=== PATIENT | male | born 1990 | race Caucasian/White ===

== ENCOUNTER 2018-07-24 09:20 | Emergency (ER) | payer OTHER, SELFPAY ==
[2018-07-24 09:21] VITALS: BP 175/91; PULSE 113; RESP 16; TEMP 36.2; O2SAT 96; BMI 39.1
[2018-07-24] MEDS: Diphth,Pertuss(Acell),Tet Vac 0.5 ML Vial IM (10:09)
[2018-07-24] MEDS: Naproxen 500 MG Tablet PO (10:47)
--- NOTE | 2018-07-24 10:58 | ED.DCSUM_ITS ---
- ER Visit Summary Date of Service: 07/24/18 Chief Complaint: Chin laceration and tongue laceration History of Present Illness: The patient is a 27 M presenting for evaluation secondary to chin and tongue lacerations. 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 Patient states that he had some darkness in his vision but did not completely lose consciousness. Patient denies any visual changes numbness or weakness. He is not on any sort of anticoagulants. Last tetanus is unknown. He suffered a laceration to his chin and his tongue. Physical Examination: Primary survey: Airway is patent, breath sounds equal bilateral, central peripheral pulses 2+ and symmetric, GCS 15 out of 15. Vitals within normal limits. Secondary survey: General: Well-nourished well-developed no acute distress Head: Normocephalic atraumatic Eyes: PERRLA, EOMI ENT: TMs clear no hemotympanum no drainage, tongue shows evidence of a large semicircular laceration measuring approximately 8 cm in total. Chin shows 3 discrete lacerations one being full-thickness and about a centimeter and a half, and 2 more superficial 1 cm lacerations Neck: Nontender full range of motion, no step-offs noted Heart: Regular rate and rhythm no murmurs Lungs: Respirations nondistressed, lung sounds clear to auscultation bilaterally, chest nontender, normal chest excursion bilaterally Abdomen: Soft nontender nondistended normal bowel sounds no palpable abdominal masses Back: Nontender no step-offs noted Extremities: Nontender: Active full range of motion ?4 Skin: Normal color no trauma Neuro: Alert and oriented ?4, GCS 15 out of 15, no lateralizing neurological deficits. Test Results: None indicated Emergency Department Course and Treatment: Patient is negative per the [facility] head CT rules. He has no evidence of trismus, and there is no indication for facial imaging. Patient's tetanus status was updated. Patient's chin laceration was anesthetized with a total of 2 cc of 1% lidocaine. The 1.5 cm laceration was approximated using 2 simple interrupted 4-0 nylon sutures after it was copiously irrigated, and the 2 more superficial 1 cm lacerations were each approximated with a single simple interrupted suture. Patient's tongue laceration was then addressed. A total of 5 cc 1% lidocaine were used in a field block to obtain anesthesia of the tongue. 4-0 chromic gut suture was used, and a total of 4 sutures were placed to tack the tongue back together. There is good hemostasis. Patient tolerated this well. Patient is a type I diabetic, will be placed on prophylactic penicillin. He was instructed to be on a soft diet and do saline rinses after each time he eats or drinks. He will follow-up with [facility] for wound check and for suture removal of his chin sutures. Disposition: Discharge Impression: 1. 8 cm tongue laceration 2. 3 discrete chin lacerations 1.5, 1, and 1 cm 3. Complex laceration repair This note was generated with [employer] dictation software. It may contain incorrect words, spelling, and punctuation that were not noted in review of the chart prior to signing ED Disposition - Plan for ED Patient: Disposition: Home or Assisted Living Chief Complaint: Other, Pain/Inj Diagnosis: Tongue laceration, Chin laceration Instructions: ED Laceration Mouth Prescriptions: Hydrocodone Bitart/Apap 5-325 [[place] 5MG-325MG] 1 tab PO Q6H PRN PRN 3 Days #12 tab PRN Reason: Pain Penicillin V Potassium 500 mg PO 4X/DAY #40 tab [facility]errals: [facility]YSIC[facility]] - 3-5 Days suture removal
[2018-07-24 11:30] VITALS: RESP 18
== END 2018-07-24 11:31 | disposition home or self-care (01) ==
PROVIDERS: Emergency Provider Emergency Medicine
DX: S01.512A Laceration without foreign body of oral cavity, initial encounter (principal); S01.81XA Laceration without foreign body of other part of head, initial encounter; W22.8XXA Striking against or struck by other objects, initial encounter; Y93.89 Activity, other specified; Y92.63 Factory as the place of occurrence of the external cause; Y99.0 Civilian activity done for income or pay; E10.9 Type 1 diabetes mellitus without complications
CPT/HCPCS: 12013; 41252; 90715; 99285

== ENCOUNTER 2020-05-02 21:07 | Emergency (ER) | payer MEDICAID, SELFPAY ==
[2020-05-02 21:08] VITALS: BP 183/105; PULSE 132; RESP 18; TEMP 36.6; O2SAT 100; BMI 33.4
[2020-05-02] MEDS: HYDROmorphone 1 MG/ML Syringe IM (21:46)
[2020-05-02] MEDS: Ondansetron ODT 4 MG Tablet PO (21:47)
[2020-05-02] MEDS: Amox/Clavulanate 875 MG Tablet PO (21:47)
[2020-05-02] MEDS: Diphth,Pertuss(Acell),Tet Vac 0.5 ML Vial IM (21:58)
--- NOTE | 2020-05-02 22:07 | RAD_ITS ---
STUDY: X-RAY - LEFT RADIUS AND ULNA REASON FOR EXAM: Male, 29 years old. BITE IN LEFT FOREARM FROM LARGE DOGE TODAY. TECHNIQUE: 2 view(s) of the forearm. COMPARISON: None. FINDINGS: Laceration seen in the distal one third dorsal soft tissues of the forearm with small amount of subcutaneous gas and swelling. Normal visualized radius. Normal visualized ulna. There is no demonstrated acute fracture. RAD/Forearm 2 Views IMPRESSION: Laceration seen in the distal one third dorsal soft tissues of the forearm with small amount of subcutaneous gas and swelling. Electronically Signed: Tesfaye Linares MD at 22:30 EDT , Service support ,
--- NOTE | 2020-05-02 22:46 | ED.DCSUM_ITS ---
- ER Visit Summary Date of Service: 05/02/20 Chief Complaint: Dog bite History of Present Illness: The patient is a 29 M with no primary care physician. He reports that just prior to coming the emergency department was trying to break up a fight between a friend's dog and an unknown dog and was bitten multiple times by the unknown dog. Complains of a sharp pain that is 10 of 10 in severity to his left forearm. Is worsened by movement relieved by rest. He denies any paresthesias distally. Patient reports that he has pain to his lateral right leg that is 7 on 10 severity and pain to his right thigh that is 9 out of 10 in severity. His tetanus shot is up-to-date. Physical Examination: Vitals: Stable. Afebrile. General: Well-nourished and well-developed. Head: Normocephalic atraumatic. Neck: Supple, no lymphadenopathy. No JVD. Nontender. Cardiovascular: Regular rate and rhythm. No murmurs. Respiratory: No respiratory distress. Clear to auscultation bilaterally. Abdominal: Soft, nontender, nondistended, normal bowel sounds. No guarding, rebound, or peritoneal signs. Back: Nontender. Extremities: Anterior surface of the left forearm has a 3.5 cm laceration over the proximal third and 2.5 cm laceration just distal and medial to this. He is neurovascular intact distal to this. Medial right leg has multiple puncture wounds with no bleeding. Lateral right thigh has a hematoma with a contusion and/abrasion/puncture wounds. He is neurovascular intact distal to these as well. Skin: Normal color, no rash. Neurologic: Alert and oriented ?3. Cranial nerves II through XII are intact. Normal strength and sensation. Psych: Normal affect. Test Results: Clinical Impression(s) from Imaging Studies Forearm X-Ray 05/02/20 22:07 IMPRESSION: Laceration seen in the distal one third dorsal soft tissues of the forearm with small amount of subcutaneous gas and swelling. Electronically Signed: Tesfaye Linares MD at 22:30 EDT , Service support , Emergency Department Course and Treatment: Patient has a history of insulin- dependent diabetes mellitus. Had a prolonged discussion with him about the risk of infection if we repaired the is bite to his left forearm. He has opted to let this heal by secondary intention and I think that that is the best plan. He had the wound cleansed and a dressing was placed. Prior to this patient was given a dose of Dilaudid IM. He had his tetanus updated. He was given Augmentin and Zofran p.o. Treatment Plan: Patient will be discharged with Augmentin, Percocet, and Zofran. Instructed to follow-up Dr. Jose Teran in 3 to 5 days for a wound check. Return to the emergency department for any worsening symptoms. Disposition: To home in improved and stable condition. Impression: 1. Dog bite left forearm. 2. Puncture wounds right thigh/leg. 3. Insulin-dependent diabetes mellitus. This note was generated with [employer] dictation software. It may contain incorrect words, spelling, and punctuation that were not noted in review of the chart prior to signing ED Disposition - Plan for ED Patient: Instructions: ED BITE Dog Prescriptions: Amox/Clavulanate Tablet [Augmentin Tablet] 875 mg PO Q12H #20 tablet Oxycodone HCl/Acetaminophen [Percocet 5/325] 1 tablet PO Q6H PRN PRN 3 Days #12 tablet PRN Reason: Pain Referrals: Jose Teran MD [STAFF PHYSICIAN] - 3-5 Days
[2020-05-02 23:58] VITALS: BP 140/92; PULSE 96; RESP 18; O2SAT 97
== END 2020-05-02 23:59 | disposition home or self-care (01) ==
LOC: ED 21:42
PROVIDERS: Emergency Provider Emergency Medicine
DX: S50.871A Other superficial bite of right forearm, initial encounter (principal); S71.131A Puncture wound without foreign body, right thigh, initial encounter; S81.831A Puncture wound without foreign body, right lower leg, initial encounter; W54.0XXA Bitten by dog, initial encounter; Y93.89 Activity, other specified; Y92.9 Unspecified place or not applicable; I10 Essential (primary) hypertension; E10.9 Type 1 diabetes mellitus without complications; Z79.4 Long term (current) use of insulin; Z72.0 Tobacco use
CPT/HCPCS: 73090; 90471; 90715; 96372; 99283

== ENCOUNTER 2020-09-22 06:46 | Inpatient (IN) | payer MEDICAID, SELFPAY ==
[2020-09-22] VITALS (11 sets, daily range): BP systolic 140–206; BP diastolic 63–180; PULSE 121–139; RESP 22–36; TEMP 35.4–36.6; O2SAT 99–100; BMI 29.3; BMI 29.4
--- NOTE | 2020-09-22 06:51 | EKG12_ITS ---
Test Reason : Blood Pressure : / mmHG Vent. Rate : 127 BPM Atrial Rate : 127 BPM P-R Int : 148 ms QRS Dur : 106 ms QT Int : 328 ms P-R-T Axes : 078 074 065 degrees QTc Int : 476 ms Sinus tachycardia Otherwise normal ECG Confirmed by LEANA DAVIS, NARINDER ([id number]), content editor SHERICE SMYTH ([id number]) on 09/24/2020 7:51:16 AM Referred By: SEAN Confirmed By:NARINDER DUEÑAS MD
--- NOTE | 2020-09-22 06:52 | ED.VIS.GEN ---
History of Present Illness Informant: Patient Onset: Yesterday Context: Gradual Onset Timing: Continuous Current Severity: Moderate Maximum Severity: Severe Narrative: The patient is a 30-year-old male with history of insulin-dependent diabetes that presents to the emergency department concerned he is in DKA. The patient does have an insulin pump. He states he thinks it started to malfunction yesterday. Today, he became acutely nauseated and having diffuse myalgias. He states he has had multiple episodes of vomiting. He states he feels like he has been in DKA before. He denies fevers. He does admit to chills and sweats. He states up until the past 24 hours, is felt like his been in his normal state of health. Prior similar symptoms: Yes Recent Illness/Hospitalization: No <Pedro Pablo Lara - Last Filed: 09/22/20 07:08> <Pedro Pablo Loja - Last Filed: 09/22/20 10:00> Chief Complaint: Nausea/Vomiting Past Medical History Prior records reviewed: Yes Past Medical History: - - Insulin-dependent diabetes Surgical History: noncontributory Smoking Status: Light Smoker (<10/day) <Pedro Pablo Lara - Last Filed: 09/22/20 07:08> <Pedro Pablo Loja - Last Filed: 09/22/20 10:00> - Allergies and Home Meds Allergies/Adverse Reactions: Allergies Penicillins [PCN] Adverse Reaction (Verified 09/22/20 06:55) Rash Review of Systems General: Denies: Chills, Fever, Sweats Eyes: Denies: Visual changes - bilaterally, Diplopia ENT: Denies: Rhinorrhea, Sore throat Cardiovascular: Denies: Chest pain, Palpitations Respiratory: Denies: Dyspnea, Cough, Dyspnea on exertion Gastrointestinal: Reports: Nausea, Vomiting. Denies: Abdominal pain, Diarrhea, Melena, Hematochezia Genitourinary: Denies: Dysuria, Hematuria, Frequency Musculoskeletal: Reports: Myalgias, Arthralgias. Denies: Back pain, Extremity Pain Skin: Denies: Rash, Wounds Neurological: Denies: Headache, Weakness, Numbness <Pedro Pablo Lara - Last Filed: 09/22/20 07:08> Physical Exam Vital Signs/Narrative: Vital Signs Temp Pulse Resp BP Pulse Ox 09/22/20 06:47 95.8 F L 123 H 36 H 206/180 H 100 Inital Vital Signs reviewed: Yes General: Well nourished, Well developed, No Acute Distress Head: Normocephalic, Atraumatic Eyes: Perrl, EOMI ENT: Moist mucous membranes, No rhinorrhea Neck: Supple, Nontender Cardiovascular: Regular rate, No murmurs, Tachycardia Respiratory: No distress, CTA bilaterally, Chest nontender Abdomen: Soft, Nontender, Nondistended, Normal bowel sounds Back: Nontender, Normal Inspection Extremities: Nontender, No edema Skin: Normal color, No rash Neurological: Alert, Oriented x3, Cranial nerves II-XII grossly intact, Normal Strength, Normal Sensation Psychological: Normal affect, Normal Mood <Pedro Pablo Lara - Last Filed: 09/22/20 07:08> Vital Signs/Narrative: Vital Signs Temp Pulse Resp BP Pulse Ox 09/22/20 09:50 129 H 30 H 159/132 H 100 09/22/20 08:09 121 H 30 H 177/66 H 99 09/22/20 06:47 95.8 F L 123 H 36 H 206/180 H 100 <Pedro Pablo Loja - Last Filed: 09/22/20 10:00> Diagnostic/Tx/Re-eval - Medical Decision Making Patient presents tachycardic, hypertensive, and tachypneic. His mucous membranes are dry. Clinically, there is obviously concern for DKA. Patient is going to undergo broad metabolic work-up. The patient's last admission for DKA was 2018 at [facility]. He is also on lisinopril for his hypertension. He will be followed up by the oncoming physician. <Pedro Pablo Lara - Last Filed: 09/22/20 07:08> Chest X-Ray - ED: 1 View, Read by ED Physician, No Acute Disease Clinical Impression(s) from Imaging Studies Chest X-Ray 09/22/20 08:35 IMPRESSION: The tip of the right central catheter is at the junction of the superior vena cava and right atrium. The lungs are clear. Electronically Signed: Derek Tobin MD at 8:53 EST , Service support , Abdomen/Pelvis CT 09/22/20 08:36 IMPRESSION: Fluid distention of the stomach. Questionable gastroparesis. Distended urinary bladder. Electronically Signed: Derek Tobin MD at 9:18 EST , Service support , Laboratory Data 09/22/20 09/22/20 09/22/20 07:01 07:15 07:15 WBC 41.2 H* RBC 5.66 Hgb 18.4 H* Hct 56.0 H MCV 98.9 H MCH 32.5 H MCHC 32.9 RDW Std Deviation 45.2 H RDW Coeff of Yaritza 12.3 Plt Count 504 H MPV 10.2 Immature Gran % (Auto) 4.200 H Neut % (Auto) 82.1 H Lymph % (Auto) 6.0 L [place] % (Auto) 6.7 Eos % (Auto) 0.1 Baso % (Auto) 0.9 Absolute Neuts (auto) 33.8 H Absolute Lymphs (auto) 2.48 Nucleated RBC % 0 Differential Comment COMMENT Diff Path Review May foll Specimen Type VBG pH VBG pO2 VBG Total CO2 VBG O2 Sat (Calc) VBG Base Excess POC Mix VBG pCO2 Pt Tmp Sodium 126 L Potassium 6.5 H* Chloride 89 L Carbon Dioxide 6.0 L* Anion Gap 31 H BUN 31 H Creatinine 2.17 H Estim Creat Clear Calc 46.96 Est GFR (MDRD) Af Amer 47 L Est GFR (MDRD) Non-Af 38 L BUN/Creatinine Ratio 14.3 Glucose 622 H* Lactic Acid Calcium 9.4 Total Bilirubin 0.70 AST 29 ALT 32 Alkaline Phosphatase 183 H Total Protein 8.7 H Albumin 4.2 Globulin 4.5 H Albumin/Globulin Ratio 0.9 Lipase 46 L Acetone Level POC Glucose > 500 H* 09/22/20 09/22/20 09/22/20 07:15 07:15 07:48 WBC RBC Hgb Hct MCV MCH MCHC RDW Std Deviation RDW Coeff of Yaritza Plt Count MPV Immature Gran % (Auto) Neut % (Auto) Lymph % (Auto) [place] % (Auto) Eos % (Auto) Baso % (Auto) Absolute Neuts (auto) Absolute Lymphs (auto) Nucleated RBC % Differential Comment Diff Path Review Specimen Type HARRIS VBG pH 6.91 L* VBG pO2 72 H VBG Total CO2 < 5 L VBG O2 Sat (Calc) 81 H VBG Base Excess -28 L POC Mix VBG pCO2 Pt Tmp 21.0 L Sodium Potassium Chloride Carbon Dioxide Anion Gap BUN Creatinine Estim Creat Clear Calc Est GFR (MDRD) Af Amer Est GFR (MDRD) Non-Af BUN/Creatinine Ratio Glucose Lactic Acid 7.8 H* Calcium Total Bilirubin AST ALT Alkaline Phosphatase Total Protein Albumin Globulin Albumin/Globulin Ratio Lipase Acetone Level LARGE H POC Glucose 09/22/20 09:19 WBC RBC Hgb Hct MCV MCH MCHC RDW Std Deviation RDW Coeff of Yaritza Plt Count MPV Immature Gran % (Auto) Neut % (Auto) Lymph % (Auto) [place] % (Auto) Eos % (Auto) Baso % (Auto) Absolute Neuts (auto) Absolute Lymphs (auto) Nucleated RBC % Differential Comment Diff Path Review Specimen Type VBG pH VBG pO2 VBG Total CO2 VBG O2 Sat (Calc) VBG Base Excess POC Mix VBG pCO2 Pt Tmp Sodium Potassium Chloride Carbon Dioxide Anion Gap BUN Creatinine Estim Creat Clear Calc Est GFR (MDRD) Af Amer Est GFR (MDRD) Non-Af BUN/Creatinine Ratio Glucose Lactic Acid Calcium Total Bilirubin AST ALT Alkaline Phosphatase Total Protein Albumin Globulin Albumin/Globulin Ratio Lipase Acetone Level POC Glucose > 500 H* - EKG Initial EKG Interpretation: - - Sinus tachycardia rate of [address] segments. No evidence of acute ischemic changes. - Medical Decision Making Patient was endorsed to me by the outgoing physician. I assumed care of the patient, he was complaining of a significant amount of back pain and required multiple doses of fentanyl as well as morphine. EKG obtained on the patient showed sinus tachycardia with peaked T waves. I was concerned for the beginnings of symptomatic hyperkalemia, patient was given calcium for cardiac stabilization. Patient's blood gas showed him to be in significant DKA with a pH of 6.9. Patient was started on an insulin drip as well as a bicarbonate drip with his concomitant fluid resuscitation. Patient's initial access was a small peripheral IV in the hand. He was consented for a right internal jugular central venous catheter. This was placed as noted in the procedure note. Confirmatory chest x-ray by my personal review shows good placement of the catheter with no evidence of pneumothorax no evidence of cardiopulmonary disease. Patient was found to have continued low back pain with the skin mottling, I was concerned for the possibility of intra-abdominal pathology, CT abdomen and pelvis showed only signs of gastroparesis no other evidence of acute pathology. Multiple repeat evaluations showed the patient to have some improvement in his clinical status, but he is still rather critical and requires intensive care management. Patient will be admitted to the ICU under the hospitalist. I did consider the possibility given the patient's back pain and skin mottling of spine disease, epidural abscess, or discitis I communicated this to the hospitalist but I feel that the patient requires further stabilization prior to having this addressed. Blood cultures were sent the patient was empirically given vancomycin and aztreonam. - Critical Care Time Critical care time (excluding procedures): 30-74 minutes <Pedro Pablo Loja - Last Filed: 09/22/20 10:00> Procedures Procedure(s): Patient was given written consent for a right internal jugular central venous access under ultrasound guidance. Timeout was performed. Right internal jugular vein was identified under ultrasound. Patient was cleansed with chlorhexidine x2. He was draped in a sterile fashion with a head to toe drape. Direct ultrasound guidance was utilized, and venous access was obtained. There was dark red nonpulsatile blood. Modified Seldinger technique was utilized, and triple-lumen catheter was placed and sutured in place with good flush and return in all 3 ports. Dressing was placed by nursing staff. Patient tolerated this well. <Pedro Pablo Loja - Last Filed: 09/22/20 10:00> ED Disposition <Pedro Pablo Lara - Last Filed: 09/22/20 07:08> <Pedro Pablo Loja - Last Filed: 09/22/20 10:00> - Plan for ED Patient: Disposition: Acute Care [facility] Diagnosis: DKA (diabetic ketoacidoses), Hyperkalemia, NICK (acute kidney injury), Dehydration
[2020-09-22] MEDS: Ondansetron 4 MG/2 ML Vial IV ×2 (07:15→08:03)
[2020-09-22] MEDS: 0.9% Normal Saline 1,000 ML 1000 ML IV ×2 (07:15→09:15)
[2020-09-22 07:26] LABS: Bedside Glucose > 500 mg/dL (70-110)
[2020-09-22] MEDS: fentaNYL 100 MCG/2 ML Ampul 25 MCG IV (07:28)
[2020-09-22 07:31] LABS: Absolute Lymphocyte Count 2.48 X10^3/uL (0.83-4.51); Absolute Neutrophil Count 33.8 X10^3/uL (2.0-7.7); Basophil# 0.39 X10^3/uL; Basophil% 0.9 % (0-1); Eosinophil# 0.04 X10^3/uL; Eosinophils% 0.1 % (0-5); Lymphocyte # 2.48 X10^3/ul (4.0); Mean Corp Hgb Conc 32.9 g/dL (32-36); Mean Corpuscular Hgb 32.5 pg (27.0-32.0); Mean Corpuscular Volume 98.9 fL (80-94); Mean Platelet Vol. 10.2 fl (6.2-12.0); Monocyte# 2.75 X10^3/uL; Monocyte% 6.7 % (0-10); NRBC Flagged by Analyzer 0 % (0-5); Neutrophil # 33.82 X10^3/uL (2.7-7.7); Neutrophil % 82.1 % (47-70); POSITIVE COUNT YES; POSITIVE DIFFERENTIAL YES; Platelet Count 504 K/mm3 (150-450); RBC Distribution Width CV 12.3 % (11.6-14.6); RBC Distribution Width SD 45.2 fl (35.1-43.9); Red Blood Count 5.66 M/mm3 (4.6-6.2)
[2020-09-22 07:34] LABS: Differential Indicated SCAN CRITERIA MET; Hemoglobin 18.4 g/dL (13.0-16.5); White Blood Count 41.2 K/mm3 (4.4-11.0)
[2020-09-22 07:51] LABS: ALB/GLOB Ratio 0.9 RATIO (0.9-2.4); AST(SGOT) 29 U/L (15-37); Alanine Aminotransfer ALT/SGPT 32 U/L (16-61); Albumin, Serum 4.2 g/dL (3.2-5.0); Alkaline Phosphatase 183 U/L (45-117); Anion Gap 31 (5-15); BUN 31 mg/dL (7-18); BUN/Creat Ratio 14.3 RATIO (10-20); Calcium,Total 9.4 mg/dL (8.5-10.1); Chloride 89 mmol/L (98-107); Creatinine, Serum 2.17 mg/dL (0.70-1.30); EST Glomerular Filtration Rate 38 mL/min (>60); Est Glom Filt Rate - Afr Amer 47 mL/min (>60); Estimated Creatinine Clearance 46.96 ml/min; Globulin 4.5 g/dL (2.2-4.2); Glucose 622 mg/dL (74-106); Lipase 46 U/L (73-393); Potassium 6.5 mmol/L (3.5-5.1); Protein, Total 8.7 g/dL (6.4-8.2); Sodium Level 126 mmol/L (136-145)
[2020-09-22 07:52] LABS: Lactic Acid 7.8 mmol/L (0.4-1.9)
[2020-09-22] MEDS: Morphine 4 MG/ML Syringe IV ×2 (08:03→08:49)
[2020-09-22 08:06] LABS: Blood Gas Specimen Type VEN; VBG BASE EXCESS -28 mmol/L (-1.0-3.5); VBG PO2 72 mmHg (25-40); VBG SO2 81 % (50-70); VBG TCO2 < 5 mmol/L (23-33); VBG pH 6.91 (7.32-7.42)
--- NOTE | 2020-09-22 08:35 | RAD_ITS ---
STUDY: X-RAY CHEST REASON FOR EXAM: Male, 30 years old. 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 LAST BGT @ 2300 WAS 330. TECHNIQUE: Single AP portable view of the chest. COMPARISON: None. FINDINGS: A right-sided central venous catheter has been placed with the tip at the junction of superior vena cava and right atrium. EKG electrodes are seen. The lungs are clear and expanded. There is no demonstrated pleural abnormality. Normal size heart. Normal mediastinum and kamla. Normal visualized pulmonary arteries. Normal visualized aortic arch and descending thoracic aorta. Normal visualized thoracic spine. The patient is status post ORIF of a left midclavicular fracture. There is no demonstrated abnormality of the visualized soft tissue structures of the upper abdomen. RAD/Chest 1 View (Portable) IMPRESSION: The tip of the right central catheter is at the junction of the superior vena cava and right atrium. The lungs are clear. Electronically Signed: Derek Tobin MD at 8:53 EST , Service support ,
--- NOTE | 2020-09-22 08:36 | CT_ITS ---
STUDY: CT ABDOMEN AND PELVIS WITHOUT CONTRAST REASON FOR EXAM: Male, 30 years old. N/V,BACK PAIN,MOTTLING, DKA, DB-INSULIN PUMP RADIATION DOSAGE (If Supplied By Facility): CTDIvol = ( 8.14 ) mGy, DLP = ( 833.99 ) mGycm TECHNIQUE: Transaxial images were obtained from the dome of the diaphragm to the symphysis pubis without oral contrast, and without intravenous contrast. Sagittal and coronal images were reconstructed. Individualized dose optimization techniques were used for this CT. COMPARISON: None. FINDINGS: There is a 2.9 cm x 2.3 cm soft tissue density in the retroareolar region of the right breast. Clinical correlation is recommended. The visualized lung bases are unremarkable. The visualized portions of the heart are within normal limits. Normal liver. Normal gallbladder and extrahepatic biliary system. Normal spleen. Normal pancreas. Normal bilateral adrenal glands. Normal right kidney. Normal left kidney. The stomach is distended with fluid. Normal small intestine. Normal colon. The appendix is visualized and appears normal. Normal abdominal aorta. Normal inferior vena cava. There is borderline retroperitoneal lymphadenopathy with enlarged nodes no greater than 10mm in the short axis diameter. Distended urinary bladder. Normal abdominal wall. Normal osseous structures. CT/Abdomen/Pelvis without Cont IMPRESSION: Fluid distention of the stomach. Questionable gastroparesis. Distended urinary bladder. Electronically Signed: Derek Tobin MD at 9:18 EST , Service support ,
[2020-09-22 09:26] LABS: Bedside Glucose > 500 mg/dL (70-110)
--- NOTE | 2020-09-22 09:47 | NURSING ---
DR MADRIGAL FOR DR ESTRADA
[2020-09-22 10:02] LABS: Anion Gap 29 (5-15); BUN 35 mg/dL (7-18); BUN/Creat Ratio 17.1 RATIO (10-20); Calcium,Total 9.1 mg/dL (8.5-10.1); Chloride 93 mmol/L (98-107); Creatinine, Serum 2.05 mg/dL (0.70-1.30); EST Glomerular Filtration Rate 41 mL/min (>60); Est Glom Filt Rate - Afr Amer 50 mL/min (>60); Estimated Creatinine Clearance 49.71 ml/min; Glucose 732 mg/dL (74-106); Potassium 6.7 mmol/L (3.5-5.1); Sodium Level 128 mmol/L (136-145)
--- NOTE | 2020-09-22 10:09 | NURSING ---
[id number] ROHAN JAVIERA
--- NOTE | 2020-09-22 10:15 | NURSING ---
Report called to Juan Diego in ICU
[2020-09-22] MEDS: 0.9% Normal Saline 1,000 ML 500 ML IV (11:04)
[2020-09-22 11:11] LABS: Magnesium 2.3 mg/dL (1.6-2.6)
[2020-09-22 11:15] LABS: Anion Gap 25 (5-15); BUN 36 mg/dL (7-18); BUN/Creat Ratio 19.7 RATIO (10-20); Chloride 99 mmol/L (98-107); Creatinine, Serum 1.83 mg/dL (0.70-1.30); EST Glomerular Filtration Rate 47 mL/min (>60); Est Glom Filt Rate - Afr Amer 57 mL/min (>60); Estimated Creatinine Clearance 55.69 ml/min; Glucose 567 mg/dL (74-106); Potassium 5.3 mmol/L (3.5-5.1); Sodium Level 131 mmol/L (136-145)
[2020-09-22 11:20] LABS: Hemoglobin A1c 10.1 % (3.8-5.6)
[2020-09-22 11:22] LABS: Reflex Lactate? Y
--- NOTE | 2020-09-22 12:03 | CPS ---
Critical ABG value verified times two. Reported results to . Verified by readback.
[2020-09-22 12:18] LABS: Bacteria 0 SEEN /hpf (None Seen); Mucous, Urine 0 SEEN /hpf (<or=2+); Red Blood Cells-Urine 0 SEEN /hpf (0-5); Squamous Epithelial Cells - UA 0 SEEN /hpf (0-5); White Blood Cells 0 SEEN /hpf (0-5)
[2020-09-22 12:21] LABS: Color, Urine Yellow (Yellow); Glucose, Dipstick 1000 mg/dl (Normal); Leukocyte Esterase-Dipstick Negative /ul (Negative); Nitrite-Dipstick Negative (Negative); Occult Blood-Urine 25 /ul (Negative); Protein-Dipstick 30 mg/dl (Negative); Urine Bilirubin Dipstick Negative (Negative); Urine Clarity Sl. Cloudy (Clear); Urine Urobilinogen Normal (Normal)
[2020-09-22 12:31] LABS: Ketone-Dipstick 150 mg/dl (Negative)
[2020-09-22 12:41] LABS: Bedside Glucose > 500 mg/dL (70-110)
[2020-09-22 12:41] LABS: Bedside Glucose 454 mg/dL (70-110)
[2020-09-22] MEDS: Heparin Injection (Vial) 5,000 UNIT/ML VIAL 5000 UNIT SC ×2 (12:55→22:13)
[2020-09-22 13:10] LABS: Bedside Glucose 447 mg/dL (70-110)
[2020-09-22 13:32] LABS: Pathologist Review Reviewed
[2020-09-22 13:51] LABS: Bedside Glucose 360 mg/dL (70-110)
[2020-09-22] MEDS: 0.9% Normal Saline 1,000 ML 250 ML IV (14:14)
[2020-09-22 15:20] LABS: Bedside Glucose 335 mg/dL (70-110)
[2020-09-22 16:16] LABS: Bedside Glucose 315 mg/dL (70-110)
[2020-09-22 16:26] LABS: Anion Gap 12 (5-15); BUN 29 mg/dL (7-18); BUN/Creat Ratio 20.1 RATIO (10-20); Chloride 107 mmol/L (98-107); Creatinine, Serum 1.44 mg/dL (0.70-1.30); EST Glomerular Filtration Rate 62 mL/min (>60); Est Glom Filt Rate - Afr Amer 75 mL/min (>60); Estimated Creatinine Clearance 70.77 ml/min; Glucose 298 mg/dL (74-106); Potassium 4.8 mmol/L (3.5-5.1); Sodium Level 135 mmol/L (136-145)
[2020-09-22 17:16] LABS: Bedside Glucose 267 mg/dL (70-110)
--- NOTE | 2020-09-22 18:11 | HP.PCM_ITS ---
History of Present Illness Date of Admission: 09/22/20 Chief Complaint: Nauseated and myalgias The patient is a 30 year old M H as below who presents to the hospital in DKA. He states that symptoms started yesterday and he thinks that at that time his insulin pump had stopped working. He checks his blood sugar twice a day and noticed that it was getting higher yesterday but did not really think anything of it until he had significant worsening nausea and vomiting today. In the ER he was found to have a pH on a VBG of 6.91 with a bicarb of six and a potassium of 6.5. His blood sugar was 622 and in his urine he had 150 ketones and he also had a large acetone level. He was given IV fluids as well as started on insulin. He also was having a significant leukocytosis to 41 as well as polycythemia secondary to dehydration and hemoconcentration. Past Medical History Allergies Penicillins [PCN] Adverse Reaction (Verified 09/22/20 06:55) Rash Home Medications: Ambulatory Orders Medication Instructions Recorded Insulin Lispro [Humalog] 100 unit SQ CONT 05/02/20 Surgical History: - - Ankle surgery and collarbone repair Smoking Status: Current every day smoker Tobacco Use: Cigarettes Alcohol: None Drugs: None - *Family History Maternal History Items: Heart Disease, Hypertension Paternal History Items: Heart Disease, Hypertension Review of Systems Constitutional: Reports: Malaise, Weakness. Denies: Chills, Fever, Weight Change HEENT: Denies: Head Aches, Sinus Congestion, Sinus Drainage Cardiovascular: Denies: Chest Pain, Palpitations Respiratory: Denies: Cough, Shortness of breath at rest, Sputum production Gastrointestinal: Reports: Nausea, Vomiting. Denies: Abdominal Pain, Diarrhea Genitourinary: Denies: Dysuria Musculoskeletal: Reports: Muscle pain. Denies: Joint Pain, Joint Tenderness Skin: Denies: Rash, Wounds Neurological: Denies: Numbness, Tingling, Focal weakness Psychiatric: Denies: Anxiety, Depression Hematologic/ Lymphatic: Denies: Easy Bruising, Easy Bleeding VTE Information - Inpt Only VTE Present on Admission: No Patient Problems: Active and Suspected Problems DKA (diabetic ketoacidoses) (Acute) Hyperkalemia (Acute) NICK (acute kidney injury) (Acute) Dehydration (Acute) - Physical Exam Vitals/I&O's: Vital Signs Temp Pulse Resp BP Pulse Ox 97.9 F 128 H 23 H 160/104 H 100 09/22/20 10:08 09/22/20 13:37 09/22/20 11:29 09/22/20 11:29 09/22/20 11:29 Oxygen Flow Rate (L/min) 2 Oxygen Delivery Method Room Air Weight: 187 lb 6.287 oz Body Mass Index (BMI) 29.4 Finger Stick Blood Glucose 267 Intake and Output for Last 24 Hours 09/20/20 09/21/20 09/22/20 23:59 23:59 23:59 Intake Total 3852.23 / 3852.23 Output Total 1300 / 1300 Balance 2552.23 / 2552.23 General: Oriented x3, Cooperative, No apparent distress, Lethargic HEENT: Atraumatic, PERRLA, EOMI, Normocephalic Oral: Dry Mucosa Neck: Supple, No JVD Lungs: Clear to auscultation, Normal air movement, No rhonchi, No wheeze, No rales Cardiovascular: Regular rate, Regular Rhythm, Normal S1, Normal S2, No murmurs Abdomen: Soft, Non Tender, Non-Distended, No Hepato-splenomegaly Extremities: No edema, Capillary Refill Less than 3 Seconds Skin: No rashes, No breakdown Neurological: Neuro grossly intact, Sensory exam intact to light touch and pain Psych/Mental Status: Normal Affect, Appropriate Laboratory Results 09/22/20 07:01: POC Glucose > 500 H* 09/22/20 07:15: WBC 41.2 H*, RBC 5.66, Hgb 18.4 H*, Hct 56.0 H, MCV 98.9 H, MCH 32.5 H, MCHC 32.9, RDW Std Deviation 45.2 H, RDW Coeff of Yaritza 12.3, Plt Count 504 H, MPV 10.2, Immature Gran % (Auto) 4.200 H, Neut % (Auto) 82.1 H, Lymph % ( Auto) 6.0 L, Elmore % (Auto) 6.7, Eos % (Auto) 0.1, Baso % (Auto) 0.9, Absolute Neuts (auto) 33.8 H, Absolute Lymphs (auto) 2.48, Nucleated RBC % 0, Differential Comment COMMENT, Diff Path Review Reviewed 09/22/20 07:15: Sodium 126 L, Potassium 6.5 H*, Chloride 89 L, Carbon Dioxide 6.0 L*, Anion Gap 31 H, BUN 31 H, Creatinine 2.17 H, Estim Creat Clear Calc 46.96, Est GFR (MDRD) Af Amer 47 L, Est GFR (MDRD) Non-Af 38 L, BUN/Creatinine Ratio 14.3, Glucose 622 H*, Calcium 9.4, Total Bilirubin 0.70, AST 29, ALT 32, Alkaline Phosphatase 183 H, Total Protein 8.7 H, Albumin 4.2, Globulin 4.5 H, Albumin/Globulin Ratio 0.9, Lipase 46 L 09/22/20 07:15: Lactic Acid 7.8 H* 09/22/20 07:15: Acetone Level LARGE H 09/22/20 07:15: Hemoglobin A1c 10.1 H 09/22/20 07:48: Specimen Type HARRIS, VBG pH 6.91 L*, VBG pO2 72 H, VBG HCO3 Pending, VBG Total CO2 < 5 L, VBG O2 Sat (Calc) 81 H, VBG Base Excess -28 L, POC Mix VBG pCO2 Pt Tmp 21.0 L 09/22/20 09:19: POC Glucose > 500 H* 09/22/20 09:20: Sodium 128 L, Potassium 6.7 H*, Chloride 93 L, Carbon Dioxide 6.0 L*, Anion Gap 29 H, BUN 35 H, Creatinine 2.05 H, Estim Creat Clear Calc 49.71, Est GFR (MDRD) Af Amer 50 L, Est GFR (MDRD) Non-Af 41 L, BUN/Creatinine Ratio 17.1, Glucose 732 H*, Calcium 9.1 09/22/20 10:37: POC Glucose > 500 H* 09/22/20 10:45: Magnesium 2.3 09/22/20 10:45: Sodium 131 L, Potassium 5.3 H, Chloride 99, Carbon Dioxide 7.0 L*, Anion Gap 25 H, BUN 36 H, Creatinine 1.83 H, Estim Creat Clear Calc 55.69, Est GFR (MDRD) Af Amer 57 L, Est GFR (MDRD) Non-Af 47 L, BUN/Creatinine Ratio 19.7, Glucose 567 H*, Calcium 8.0 L 09/22/20 11:41: POC Glucose 454 H* 09/22/20 12:00: Urine Color Yellow, Urine Clarity Sl. Cloudy, Urine pH 5.0, Ur Specific [place] 1.020, Urine Protein 30 H, Urine Glucose (UA) 1000 H, Urine Ketones 150 H, Urine Occult Blood 25 H, Urine Nitrite Negative, Urine Bilirubin Negative, Urine Urobilinogen Normal, Ur Leukocyte Esterase Negative, Urine RBC 0 SEEN, Urine WBC 0 SEEN, Ur Squamous Epith Cells 0 SEEN, Urine Bacteria 0 SEEN, Urine Mucus 0 SEEN 09/22/20 12:40: POC Glucose 447 H 09/22/20 12:45: Lactic Acid 2.0 09/22/20 13:45: POC Glucose 360 H 09/22/20 15:10: Sodium 135 L, Potassium 4.8, Chloride 107, Carbon Dioxide 16.0 L , Anion Gap 12, BUN 29 H, Creatinine 1.44 H, Estim Creat Clear Calc 70.77, Est GFR (MDRD) Af Amer 75, Est GFR (MDRD) Non-Af 62, BUN/Creatinine Ratio 20.1 H, Glucose 298 H, Calcium 8.0 L 09/22/20 15:10: Glucose Cancelled 09/22/20 15:13: POC Glucose 335 H 09/22/20 16:11: POC Glucose 315 H 09/22/20 17:11: POC Glucose 267 H Current Medications Acetaminophen (Acetaminophen 325 Mg Tablet) 650 mg PO Q6H PRN PRN PRN Reason: Pain Score 1-10/Temp > 100.7 F Dextrose (Dextrose 50%-Water 25 Gm/50 Ml Disp.Syrin) 0 gm IV X1 PRN; Protocol PRN Reason: Hypoglycemia Heparin Sodium (Porcine) (Heparin Injection (Vial) 5,000 Unit/Ml Vial) 5,000 unit SC Q12 [facility] Last Admin: 09/22/20 12:55 Dose: 5,000 unit Documented by: Potassium Chloride/Sodium Chloride (Kcl 20meq In 0.45% Ns 1000ml) 1,000 mls @ 125 mls/hr IV .Q8H [facility] Stop: 09/22/20 19:59 Last Admin: 09/22/20 17:16 Dose: 125 mls/hr Documented by: Potassium Chloride/Sodium Chloride (Kcl 20meq In 0.45% Ns 1000ml) 1,000 mls @ 125 mls/hr IV .Q8H [facility] Stop: 09/23/20 07:59 Insulin Human Lispro 100 unit/ (Sodium Chloride) 100 mls @ 8.5 mls/hr CONT INF .[id number] [facility]; Protocol Last Titration: 09/22/20 17:00 Dose: 0.04 units/kg/hr, 3 mls/hr Documented by: Sodium Chloride () 250 mls @ 15 mls/hr IV .[id number] PRN PRN Reason: Saline Flush Sodium Chloride () 250 mls @ 15 mls/hr IV .[id number] PRN PRN Reason: Additional IVPB Infusion Ondansetron HCl (Ondansetron 4 Mg/2 Ml Vial) 4 mg IV Q8H PRN PRN PRN Reason: NAUSEA/VOMITING Sodium Chloride (0.9% Saline Lock 10 Ml Syringe) 10 - 40 ml IV UD PRN PRN Reason: Multilumen/Hector Flush Sodium Chloride (0.9 % Nacl (Sterile) Posiflush 10 Ml) 10 - 40 ml IV UD PRN PRN Reason: Port access or dressing change Sodium Chloride (0.9% Saline Lock 10 Ml Syringe) 10 - 40 ml IV UD PRN PRN Reason: SALINE FLUSH Assessment/Plan All Active Problems DKA (diabetic ketoacidoses) (Acute) Hyperkalemia (Acute) NICK (acute kidney injury) (Acute) Dehydration (Acute) 1. Acute DKA/DM 1/NICK with dehydration and polycythemia/anion gap metabolic acidosis/hyperkalemia -We will place him to the ICU -Continue with the DKA protocol and aggressive IV fluid hydration, will monitor his blood sugars very closely -Continue with the insulin drip, he does follow-up with an national expansion recruiter in [place] which he will have to see on discharge -We will reevaluate his leukocytosis and his hemoglobin in the morning, this is likely reactive to his DKA and his dehydration. He was given aztreonam and vancomycin in the ER -No sign of infection, and remains afebrile -Potassium is stabilizing, with every 4 BMPs, he will be transition to IV fluids with potassium in it -Gap is closing DVT: Heparin Inpatient E&M: [id number] Init Hosp L3
[2020-09-22 18:43] LABS: Anion Gap 9 (5-15); BUN 25 mg/dL (7-18); BUN/Creat Ratio 19.5 RATIO (10-20); Calcium,Total 7.8 mg/dL (8.5-10.1); Chloride 107 mmol/L (98-107); Creatinine, Serum 1.28 mg/dL (0.70-1.30); EST Glomerular Filtration Rate 71 mL/min (>60); Est Glom Filt Rate - Afr Amer 85 mL/min (>60); Estimated Creatinine Clearance 79.61 ml/min; Glucose 254 mg/dL (74-106); Potassium 4.7 mmol/L (3.5-5.1); Sodium Level 135 mmol/L (136-145)
[2020-09-22 20:36] LABS: Bedside Glucose 226 mg/dL (70-110)
[2020-09-22] MEDS: Insulin Lispro 100 UNIT/ML INSULN.PEN SC (21:51)
[2020-09-22 21:55] LABS: Bedside Glucose 213 mg/dL (70-110)
[2020-09-23] VITALS: BP 152/76; PULSE 114; RESP 18; TEMP 36.6; O2SAT 99
[2020-09-23 04:17] LABS: Absolute Lymphocyte Count 2.13 X10^3/uL (0.83-4.51); Absolute Neutrophil Count 20.6 X10^3/uL (2.0-7.7); Basophil# 0.06 X10^3/uL; Basophil% 0.2 % (0-1); Eosinophil# 0.05 X10^3/uL; Eosinophils% 0.2 % (0-5); Hematocrit 41.7 % (40-54); Hemoglobin 14.8 g/dL (13.0-16.5); Lymphocyte # 2.13 X10^3/ul (4.0); Lymphocyte % 8.7 % (19-41); Mean Corp Hgb Conc 35.5 g/dL (32-36); Mean Corpuscular Hgb 32.5 pg (27.0-32.0); Mean Corpuscular Volume 91.4 fL (80-94); Mean Platelet Vol. 9.5 fl (6.2-12.0); Monocyte# 1.55 X10^3/uL; Monocyte% 6.3 % (0-10); NRBC Flagged by Analyzer 0 % (0-5); Neutrophil # 20.55 X10^3/uL (2.7-7.7); Neutrophil % 83.7 % (47-70); POSITIVE DIFFERENTIAL YES; Platelet Count 285 K/mm3 (150-450); RBC Distribution Width CV 12.8 % (11.6-14.6); RBC Distribution Width SD 42.4 fl (35.1-43.9); Red Blood Count 4.56 M/mm3 (4.6-6.2); White Blood Count 24.6 K/mm3 (4.4-11.0)
[2020-09-23 04:29] LABS: Anion Gap 13 (5-15); BUN 17 mg/dL (7-18); BUN/Creat Ratio 16.5 RATIO (10-20); Calcium,Total 8.3 mg/dL (8.5-10.1); Chloride 104 mmol/L (98-107); Creatinine, Serum 1.03 mg/dL (0.70-1.30); EST Glomerular Filtration Rate 91 mL/min (>60); Est Glom Filt Rate - Afr Amer 110 mL/min (>60); Estimated Creatinine Clearance 98.94 ml/min; Glucose 332 mg/dL (74-106); Potassium 4.5 mmol/L (3.5-5.1); Sodium Level 134 mmol/L (136-145)
[2020-09-23 04:57] LABS: Differential Indicated SCAN CRITERIA MET
[2020-09-23 05:15] LABS: Differential Comment SCANNED
[2020-09-23 06:00] VITALS: BP 157/75; PULSE 109; RESP 16; TEMP 36.8; O2SAT 95
[2020-09-23 07:25] LABS: VBG Bicarbonate 4 mmol/L (22-26)
[2020-09-23 08:00] LABS: Bedside Glucose 299 mg/dL (70-110)
[2020-09-23] MEDS: Heparin Injection (Vial) 5,000 UNIT/ML VIAL 5000 UNIT SC ×2 (09:03→21:46)
[2020-09-23] MEDS: 0.9% Normal Saline 1,000 ML 100 ML IV ×2 (11:08→21:43)
[2020-09-23] MEDS: Insulin Lispro 100 UNIT/ML INSULN.PEN SC ×3 (11:09→21:45)
[2020-09-23] MEDS: 0.9% Saline Lock 10 ML Syringe IV (11:10)
--- NOTE | 2020-09-23 11:23 | PN_ITS ---
Patient Problems: Active and Suspected Problems DKA (diabetic ketoacidoses) (Acute) Hyperkalemia (Acute) NICK (acute kidney injury) (Acute) Dehydration (Acute) Subjective: Doing well, more alert today, no issues overnight. Vitals/I&O's: Vital Signs Temp Pulse Resp BP Pulse Ox 98.2 F 109 H 16 157/75 H 95 09/23/20 06:00 09/23/20 06:00 09/23/20 06:00 09/23/20 06:00 09/23/20 06:00 Oxygen Flow Rate (L/min) 2 Oxygen Delivery Method Room Air Weight: 191 lb 5.78 oz Body Mass Index (BMI) 29.4 Finger Stick Blood Glucose 226 Intake and Output for Last 24 Hours 09/21/20 09/22/20 09/23/20 23:59 23:59 23:59 Intake Total 5504.50 / 5504.50 550 / 550 Output Total 2750 / 2750 1800 / 1800 Balance 2754.50 / 2754.50 -1250 / -1250 General: Alert, Oriented x3, Cooperative, No apparent distress HEENT: Atraumatic, PERRLA, EOMI, Normocephalic Oral: Moist mucosa Neck: Supple, No JVD Lungs: Clear to auscultation, Normal air movement, No rhonchi, No wheeze, No rales Cardiovascular: Regular rate, Regular Rhythm, Normal S1, Normal S2, No murmurs Abdomen: Soft, Non Tender, Non-Distended, No Hepato-splenomegaly Extremities: No edema, Capillary Refill Less than 3 Seconds Skin: No rashes, No breakdown Neurological: Neuro grossly intact, Sensory exam intact to light touch and pain Psych/Mental Status: Normal Affect, Appropriate Laboratory Results 09/22/20 07:15: Diff Path Review Reviewed 09/22/20 07:48: VBG HCO3 4 L 09/22/20 10:37: POC Glucose > 500 H* 09/22/20 11:41: POC Glucose 454 H* 09/22/20 12:00: Urine Color Yellow, Urine Clarity Sl. Cloudy, Urine pH 5.0, Ur Specific [place] 1.020, Urine Protein 30 H, Urine Glucose (UA) 1000 H, Urine Ketones 150 H, Urine Occult Blood 25 H, Urine Nitrite Negative, Urine Bilirubin Negative, Urine Urobilinogen Normal, Ur Leukocyte Esterase Negative, Urine RBC 0 SEEN, Urine WBC 0 SEEN, Ur Squamous Epith Cells 0 SEEN, Urine Bacteria 0 SEEN, Urine Mucus 0 SEEN 09/22/20 12:40: POC Glucose 447 H 09/22/20 12:45: Lactic Acid 2.0 09/22/20 13:45: POC Glucose 360 H 09/22/20 15:10: Sodium 135 L, Potassium 4.8, Chloride 107, Carbon Dioxide 16.0 L , Anion Gap 12, BUN 29 H, Creatinine 1.44 H, Estim Creat Clear Calc 70.77, Est GFR (MDRD) Af Amer 75, Est GFR (MDRD) Non-Af 62, BUN/Creatinine Ratio 20.1 H, Glucose 298 H, Calcium 8.0 L 09/22/20 15:10: Glucose Cancelled 09/22/20 15:13: POC Glucose 335 H 09/22/20 16:11: POC Glucose 315 H 09/22/20 17:11: POC Glucose 267 H 09/22/20 18:15: Sodium 135 L, Potassium 4.7, Chloride 107, Carbon Dioxide 19.0 L , Anion Gap 9, BUN 25 H, Creatinine 1.28, Estim Creat Clear Calc 79.61, Est GFR (MDRD) Af Amer 85, Est GFR (MDRD) Non-Af 71, BUN/Creatinine Ratio 19.5, Glucose 254 H, Calcium 7.8 L 09/22/20 20:28: POC Glucose 226 H 09/22/20 21:50: POC Glucose 213 H 09/23/20 04:00: WBC 24.6 H, RBC 4.56 L, Hgb 14.8, Hct 41.7, MCV 91.4 D, MCH 32.5 H, MCHC 35.5 D, RDW Std Deviation 42.4, RDW Coeff of Yaritza 12.8, Plt Count 285, MPV 9.5, Immature Gran % (Auto) 0.900, Neut % (Auto) 83.7 H, Lymph % (Auto) 8.7 L, Gilchrist % (Auto) 6.3, Eos % (Auto) 0.2, Baso % (Auto) 0.2, Absolute Neuts (auto) 20.6 H, Absolute Lymphs (auto) 2.13, Nucleated RBC % 0, Differential Comment SCANNED, Diff Path Review May foll 21 04:00: Sodium 134 L, Potassium 4.5, Chloride 104, Carbon Dioxide 17.0 L , Anion Gap 13, BUN 17, Creatinine 1.03, Estim Creat Clear Calc 98.94, Est GFR (MDRD) Af Amer 110, Est GFR (MDRD) Non-Af 91, BUN/Creatinine Ratio 16.5, Glucose 332 H, Calcium 8.3 L 09/23/20 07:57: POC Glucose 299 H Current Medications Acetaminophen (Acetaminophen 325 Mg Tablet) 650 mg PO Q6H PRN PRN PRN Reason: Pain Score 1-10/Temp > 100.7 F Dextrose (Dextrose 50%-Water 25 Gm/50 Ml Disp.Syrin) 0 gm IV X1 PRN; Protocol PRN Reason: Hypoglycemia Heparin Sodium (Porcine) (Heparin Injection (Vial) 5,000 Unit/Ml Vial) 5,000 unit SC Q12 [facility] Last Admin: 09/23/20 09:03 Dose: 5,000 unit Documented by: Sodium Chloride () 250 mls @ 15 mls/hr IV .[id number] PRN PRN Reason: Saline Flush Sodium Chloride () 1,000 mls @ 100 mls/hr IV .Q10H [facility] Last Admin: 09/23/20 11:08 Dose: 100 mls/hr Documented by: Insulin Glargine (Insulin Glargine 100 Units/Ml Pen) 20 units SC 1100,2200 [facility] Last Admin: 09/23/20 11:09 Dose: 20 u Documented by: Insulin Human Lispro (Insulin Lispro 100 Unit/Ml Insuln.Pen) 0 unit SC ACHS [facility]; Protocol Last Admin: 09/23/20 11:09 Dose: 12 u Documented by: Ondansetron HCl (Ondansetron 4 Mg/2 Ml Vial) 4 mg IV Q8H PRN PRN PRN Reason: NAUSEA/VOMITING Sodium Chloride (0.9 % Nacl (Sterile) Posiflush 10 Ml) 10 - 40 ml IV UD PRN PRN Reason: Port access or dressing change Sodium Chloride (0.9% Saline Lock 10 Ml Syringe) 10 - 40 ml IV UD PRN PRN Reason: SALINE FLUSH Last Admin: 09/23/20 11:10 Dose: 10 ml Documented by: Medical Necessity - Tobacco Use Smoking Status: Current every day smoker Tobacco Use: Cigarettes Assessment/Plan All Active Problems DKA (diabetic ketoacidoses) (Acute) Hyperkalemia (Acute) NICK (acute kidney injury) (Acute) Dehydration (Acute) 1. Acute DKA/DM 1/NICK with dehydration and polycythemia/anion gap metabolic acidosis/hyperkalemia -Can transfer out of ICU today -Continue with the DKA protocol and aggressive IV fluid hydration, will monitor his blood sugars very closely -Continue with the insulin drip, he does follow-up with an concrete finisher in [place] which he will have to see on discharge -Leukocytosis and hemoglobin are both improving continue with current treatment -No sign of infection, and remains afebrile -Potassium is normal -Gap is closed DVT: Heparin Inpatient E&M: [id number] Subs Hosp L2
[2020-09-23 11:27] VITALS: BP 156/91; PULSE 120; RESP 16; TEMP 37.2; O2SAT 98
[2020-09-23 11:35] LABS: Bedside Glucose 371 mg/dL (70-110)
--- NOTE | 2020-09-23 14:13 | CASEMGMT ---
Addendum entered by Jesus Manuel Malone 09/23/20 15:20: Call to Dr. Lambert's office. Patient has been discharged from their service for non-compliance and cannot re-establish. Call to Dr. Rene's office in [facility]. They will not have a new appointment available until January and their wait list is extensive. -Call to [facility]. Able to make an appointment with Jessica Harrell CNP @ [place] [facility]/ Department of Endocrinology, Diabetes for November @ 1:30 pm. Address is [address] [place] [address]. . - If pt has diabetic concerns prior to this, he will need to go to the [facility] until he establishes in [place]. -Reviewed above with patient including importance of establishing with PCP and new cost reduction engineer. Discussed that he will have to follow up with [facility] on discharge for diabetic needs. Brochure with address, phone number and hours given to patient. -DC appointment with Jessica Harrell CNP given to patient with address, time and phone number of [place] office. -recommended to patient he establish with a PCP as soon as possible. Tacso GERARDO RN ACM Original Note: RN CM Assessment Note Introduced role of CM to patient in ICU. Demographics, PCP verified. Pt states he lives independently with his sister. he has an insulin pump which he states he manages at home. pt states he has a functioning blood glucose monitor and supplies are paid through insurance. Presentation: nausea, myalgias Diagnosis: DKA PCP: No PCP. discussed patient establishing with a PCP and he was willing to take a list of [facility] [place] PCP's that are accepting patients. Specialists: Dr. Deana Lambert, [facility] in [place] Insurance: [employer] [facility] Preferred Pharmacy: [facility] Prescription Benefit: yes LNOK: Parents Living Arrangements: Lives with his sister. States no care needs at home Tranportation: DME: Blood glucose monitor, insulin pump HHC: none SNF: none Patient DC Goals: home DC Plan: home on discharge. Pt will need to follow up with Dr. Lambert. CM available for discharge planning coordination. Contact CM for any concerns/needs that may arise. Tacos BSN RN ACM
[2020-09-23 14:20] LABS: Pathologist Review Reviewed
[2020-09-23 15:59] VITALS: BP 161/74; PULSE 113; RESP 16; TEMP 36.6; O2SAT 100
[2020-09-23 16:31] LABS: Bedside Glucose 292 mg/dL (70-110)
[2020-09-23] MEDS: BENZOCAINE/MENTHOL 1 LOZENGE MUCOUS MEM ×2 (17:04→21:44)
--- NOTE | 2020-09-23 20:45 | NURSING ---
Pt's girlfriend, Edna, called in wanting to talk to this pt's nurse. I asked the pt if it was ok to give her information and he stated yes.
[2020-09-23] MEDS: Acetaminophen 325 MG Tablet 650 MG PO (21:44)
[2020-09-23 21:51] VITALS: BP 155/95; PULSE 117; RESP 16; TEMP 37.4; O2SAT 100
[2020-09-23 22:00] LABS: Bedside Glucose 378 mg/dL (70-110)
[2020-09-24 03:41] VITALS: BP 160/96; PULSE 98; RESP 18; TEMP 36.8; O2SAT 99
[2020-09-24] MEDS: Insulin Lispro 100 UNIT/ML INSULN.PEN SC ×2 (06:36→11:25)
[2020-09-24 06:37] LABS: Absolute Lymphocyte Count 2.24 X10^3/uL (0.83-4.51); Absolute Neutrophil Count 8.1 X10^3/uL (2.0-7.7); Basophil# 0.07 X10^3/uL; Basophil% 0.6 % (0-1); Eosinophil# 0.12 X10^3/uL; Hematocrit 42.2 % (40-54); Lymphocyte # 2.24 X10^3/ul (4.0); Lymphocyte % 19.1 % (19-41); Mean Corp Hgb Conc 35.5 g/dL (32-36); Mean Corpuscular Hgb 32.3 pg (27.0-32.0); Mean Corpuscular Volume 90.8 fL (80-94); Mean Platelet Vol. 9.4 fl (6.2-12.0); Monocyte# 1.13 X10^3/uL; Monocyte% 9.6 % (0-10); NRBC Flagged by Analyzer 0 % (0-5); Neutrophil % 69.1 % (47-70); Platelet Count 233 K/mm3 (150-450); RBC Distribution Width CV 12.8 % (11.6-14.6); RBC Distribution Width SD 42.2 fl (35.1-43.9); Red Blood Count 4.65 M/mm3 (4.6-6.2); White Blood Count 11.7 K/mm3 (4.4-11.0)
[2020-09-24] MEDS: Acetaminophen 325 MG Tablet 650 MG PO (06:40)
[2020-09-24] MEDS: BENZOCAINE/MENTHOL 1 LOZENGE MUCOUS MEM ×2 (06:40→08:45)
[2020-09-24 06:41] LABS: Bedside Glucose 226 mg/dL (70-110)
[2020-09-24 07:09] LABS: Anion Gap 7 (5-15); BUN 10 mg/dL (7-18); BUN/Creat Ratio 12.8 RATIO (10-20); Calcium,Total 8.5 mg/dL (8.5-10.1); Chloride 106 mmol/L (98-107); Creatinine, Serum 0.78 mg/dL (0.70-1.30); EST Glomerular Filtration Rate 125 mL/min (>60); Est Glom Filt Rate - Afr Amer 151 mL/min (>60); Estimated Creatinine Clearance 130.65 ml/min; Glucose 178 mg/dL (74-106); Potassium 3.4 mmol/L (3.5-5.1); Sodium Level 138 mmol/L (136-145)
[2020-09-24 08:47] VITALS: BP 156/90; PULSE 106; RESP 18; TEMP 36.9; O2SAT 98
[2020-09-24] MEDS: 0.9% Normal Saline 1,000 ML 100 ML IV (08:47)
--- NOTE | 2020-09-24 09:46 | PCM.DC ---
- Discharge Diagnoses Current Active Problems: Current Active and Chronic Problems DKA (diabetic ketoacidoses) (Acute) Hyperkalemia (Acute) NICK (acute kidney injury) (Acute) Dehydration (Acute) You will use the following diet at home:: Calorie/Carbohydrate Controlled (specify 1200, 1400, etc) Your food should be the consistency of: Regular Your liquids should be the consistency of: Regular/Thin Discharge Activity: Return to Normal Activity Call your doctor if you observe: Fever of 101 or Higher, Shortness of breath, Dizziness, Fainting spells, Swelling in the ankles, Chest pain, Increased palpitations (irregular heartbeat) Instructions: Using Injected Insulin, Types of Insulin Allergies/Adverse Reactions: Allergies Penicillins [PCN] Adverse Reaction (Verified 09/22/20 06:55) Rash Medications to take at Discharge Insulin Lispro [Humalog] 100 unit SQ CONT 05/02/20 Insulin Glargine [Lantus SoloStar Pen] 30 units SC 1100,2200 #1 pen 09/24/20 [place], Insulin Disposable [Novofine Autocover 30G Needle] 1 ea MISCELL. UD #1 box 09/24/20 The following prescriptions were given: Insulin Glargine [Lantus SoloStar Pen] 30 units SC 1100,2200 #1 pen Transmission Status: Pending to [facility] [place], Insulin Disposable [Novofine Autocover 30G Needle] 1 ea MISCELL. UD #1 box Transmission Status: Pending to [facility] Primary Care Physician: Care Physician,No Primary [Primary Care Provider] - Test Results: Test results from this visit will be discussed in further detail at your follow-up appointment, if applicable. Please Follow Up With: Dara Glez When: follow up @ Clinic for diabetic needs until appt in [place] Please Follow Up With: Jessica Harrell NP, ACCOUNT MANAGER-C When: Tuesday
--- NOTE | 2020-09-24 10:56 | PHA.DC.MC ---
Pharmacy Service has performed discharge medication reconciliation and counseling for this patient. 1. INSULIN GLARGINE 30UNITS SC 1100,2200 The patient's discharge medication list was reviewed for discrepancies and discrepancies were resolved. Home Medications Insulin Lispro [Humalog] 100 unit SQ CONT 05/02/20 Insulin Glargine [Lantus SoloStar Pen] 30 units SC 1100,2200 #1 pen 09/24/20 [place], Insulin Disposable [Novofine Autocover 30G Needle] 1 ea SERGIO. UD #1 box 09/24/20 The patient was counseled on the following discharge medications and changes in medications for homegoing were reviewed. The Reason for Use, instructions for use, and potential side effects were reviewed for all new medications. The patient's questions regarding all of their medications were answered. The patient was able to verbally demonstrate an understanding of their discharge medications. Patient counseled by manager pharmacyBen.
[2020-09-24 11:16] VITALS: BP 160/94; PULSE 100; RESP 18; TEMP 36.8; O2SAT 100
--- NOTE | 2020-09-24 12:03 | DS.PCM_ITS ---
Discharge Date and Diagnosis - Problem List Patient Problems: Active and Suspected Problems DKA (diabetic ketoacidoses) (Acute) Hyperkalemia (Acute) NICK (acute kidney injury) (Acute) Dehydration (Acute) Date of Admission: 09/22/20 Date of Discharge: 09/24/20 - Primary Discharge Diagnosis Acute Problems: Active Problems DKA (diabetic ketoacidoses) (Acute) Hyperkalemia (Acute) NICK (acute kidney injury) (Acute) Dehydration (Acute) Hospital Course and Treatment Imaging Results: Clinical Impression(s) from Imaging Studies Chest X-Ray 09/22/20 08:35 IMPRESSION: The tip of the right central catheter is at the junction of the superior vena cava and right atrium. The lungs are clear. Electronically Signed: Derek Tobin MD at 8:53 EST , Service support , Abdomen/Pelvis CT 09/22/20 08:36 IMPRESSION: Fluid distention of the stomach. Questionable gastroparesis. Distended urinary bladder. Electronically Signed: Derek Tobin MD at 9:18 EST , Service support , Operations: None Procedures: None Summary of Care Provided: Per HPI: The patient is a 30 [facility] who presents to the [facility] in [facility]. He states that symptoms started yesterday and he thinks that at that time his insulin pump had stopped working. He checks his blood sugar twice a day and noticed that it was getting higher yesterday but did not really think anything of it until he had significant worsening nausea and vomiting today. In the ER he was found to have a pH on a VBG of 6.91 with a bicarb of six and a p otassium of 6.5. His blood sugar was 622 and in his urine he had 150 ketones and he also had a large acetone level. He was given IV fluids as well as started on insulin. He also was having a significant leukocytosis to 41 as well as polycythemia secondary to dehydration and hemoconcentration. Hospital Course: 1. Acute DKA/DM 1/NICK with dehydration polycythemia/anion gap metabolic a cidosis/hjfslberskrc-24-cz[age]-old male who is a type I diabetic presents in DKA. He says his last time he was in DKA was a few years ago and he thinks at this time was because he was low on his insulin he thinks that the insulin pump was not delivering it appropriately. He has done well with insulin drips and then transition to long-acting and mealtime insulin. 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 On the day of discharge his leukocytosis had decreased from 41.2-11.7 without the use of antibiotics, and his creatinine is stable. Blood sugar on discharge was 178. I did stress to him the importance of following his diabetic diet strictly as possible until he can get his refill for his insulin pump. I discussed the plan for discharge today he expressed understanding of the risk and benefits of going home and wants to go home today. Patient Problems: Active and Suspected Problems DKA (diabetic ketoacidoses) (Acute) Hyperkalemia (Acute) NICK (acute kidney injury) (Acute) Dehydration (Acute) - Physical Exam Vitals/I&O's: Vital Signs Temp Pulse Resp BP Pulse Ox 98.2 F 100 18 160/94 H 100 09/24/20 11:16 09/24/20 11:16 09/24/20 11:16 09/24/20 11:16 09/24/20 11:16 Oxygen Flow Rate (L/min) 2 Oxygen Delivery Method Room Air Weight: 188 lb 4.396 oz Body Mass Index (BMI) 29.4 Finger Stick Blood Glucose 226 Intake and Output for Last 24 Hours 09/22/20 09/23/20 09/24/20 23:59 23:59 23:59 Intake Total 5504.50 / 5504.50 2140 / 2140 1268.33 / 1268.33 Output Total 2750 / 2750 1800 / 1800 Balance 2754.50 / 2754.50 340 / 340 1268.33 / 1268.33 General: Alert, Oriented x3, Cooperative, No apparent distress HEENT: Atraumatic, PERRLA, EOMI, Normocephalic Oral: Moist mucosa Neck: Supple, No JVD Lungs: Clear to auscultation, Normal air movement, No rhonchi, No wheeze, No rales Cardiovascular: Regular rate, Regular Rhythm, Normal S1, Normal S2, No murmurs Abdomen: Soft, Non Tender, Non-Distended, No Hepato-splenomegaly Extremities: No edema, Capillary Refill Less than 3 Seconds Skin: No rashes, No breakdown Neurological: Neuro grossly intact, Sensory exam intact to light touch and pain Psych/Mental Status: Normal Affect, Appropriate Microbiology Past 72 Hours 09/22/20 08:40 Blood Culture (Wb) - Port Blood Culture - Preliminary No growth in 48 hours. 09/22/20 07:15 Blood Culture (Wb) - Right Wrist Blood Culture - Preliminary No growth in 48 hours. Laboratory Results 09/23/20 04:00: Diff Path Review Reviewed 09/23/20 16:28: POC Glucose 292 H 09/23/20 21:39: POC Glucose 378 H 09/24/20 06:05: WBC 11.7 H, RBC 4.65, Hgb 15.0, Hct 42.2, MCV 90.8, MCH 32.3 H, MCHC 35.5, RDW Std Deviation 42.2, RDW Coeff of Yaritza 12.8, Plt Count 233, MPV 9.4, Immature Gran % (Auto) 0.600, Neut % (Auto) 69.1, Lymph % (Auto) 19.1, [place] % (Auto) 9.6, Eos % (Auto) 1.0, Baso % (Auto) 0.6, Absolute Neuts (auto) 8.1 H, Absolute Lymphs (auto) 2.24, Nucleated RBC % 0 09/24/20 06:05: Sodium 138, Potassium 3.4 L, Chloride 106, Carbon Dioxide 25.0, Anion Gap 7, BUN 10, Creatinine 0.78, Estim Creat Clear Calc 130.65, Est GFR (MDRD) Af Amer 151, Est GFR (MDRD) Non-Af 125, BUN/Creatinine Ratio 12.8, Glucose 178 H, Calcium 8.5 09/24/20 06:35: POC Glucose 226 H Discharge Activity: Return to Normal Activity Call your doctor if you observe: Fever of 101 or Higher, Shortness of breath, Dizziness, Fainting spells, Swelling in the ankles, Chest pain, Increased palpitations (irregular heartbeat) Home Medications: Medications to take at Discharge Insulin Lispro [Humalog] 100 unit SQ CONT 05/02/20 Insulin Glargine [Lantus SoloStar Pen] 30 units SC 1100,2200 #1 pen 09/24/20 [place], Insulin Disposable [Novofine Autocover 30G Needle] 1 ea MISCELL. UD #1 box 09/24/20 Following Prescriptions Were Given to Patient: Insulin Glargine [Lantus SoloStar Pen] 30 units SC 1100,2200 #1 pen Transmission Status: Received by [facility] [place], Insulin Disposable [Novofine Autocover 30G Needle] 1 ea MISCELL. UD #1 box Transmission Status: Received by [facility] Primary Care Physician: Care Physician,No Primary [Primary Care Provider] - Please Follow Up With: Dara Glez When: follow up @ Clinic for diabetic needs until appt in [place] Please Follow Up With: Jessica Harrell [employer]ORTS EQUIPMENT RACKER, SPORTS EQUIPMENT RACKER-C When: Tuesday Patient Instructions: Using Injected Insulin, Types of Insulin Disposition: Home Minutes spent on discharge:: 35 Patient Condition:: Stable Medical Necessity - Tobacco Use Smoking Status: Current every day smoker Tobacco Use: Cigarettes Meaningful Use Info Meaningful Use Diagnoses (Choose all that apply): None applicable Inpatient E&M: 82026 Disch Hosp
[2020-09-24 12:21] LABS: Bedside Glucose 387 mg/dL (70-110)
== END 2020-09-24 11:45 | disposition home or self-care (01) | DRG 420 ==
LOC: ED 09:57 → ICU 10:13 → MS3 09-23 15:47
PROVIDERS: Emergency Medicine; Admitting Provider Family Medicine; Emergency Provider Emergency Medicine; Visit Provider Family Medicine
DX: E10.10 Type 1 diabetes mellitus with ketoacidosis without coma (principal); F17.210 Nicotine dependence, cigarettes, uncomplicated; I10 Essential (primary) hypertension; E87.5 Hyperkalemia; E86.0 Dehydration; N17.9 Acute kidney failure, unspecified; Z96.41 Presence of insulin pump (external) (internal); D75.1 Secondary polycythemia
CPT/HCPCS: 71045; 74176; 80048; 80053; 81001; 82009; 82803; 82962; 83036; 83605; 83690; 83735; 85025; 87040; 93005; 99285; 99406; J7030; J7050; A4216; C1751; J2405

== ENCOUNTER 2021-01-16 19:13 | Emergency (ER) | payer BC, MEDICAID, SELFPAY ==
[2020-09-22 10:44] VITALS: BMI 29.4
[2021-01-16 19:13] VITALS: BP 145/87; PULSE 116; RESP 15; TEMP 36.6; O2SAT 99; BMI 28.3
--- NOTE | 2021-01-16 19:42 | CT_ITS ---
STUDY: CT CHEST, ABDOMEN T PELVIS WITH CONTRAST REASON FOR EXAM: Male, 30 years old. right lower rib injury /ruq pain RADIATION DOSAGE (If Supplied By Facility): CTDIvol = ( 15.52 ) mGy, DLP = ( 1465.01 ) mGycm TECHNIQUE: Transaxial imaging was performed following intravenous administration of IV 100mL Isovue-300. Individualized dose optimization techniques were used for this CT. COMPARISON: Prior abdomen and pelvic CT exam of 09/22/2020 FINDINGS: CHEST The lungs are normal. There is no demonstrated pleural abnormality. Normal heart and pericardium. Normal mediastinum. Normal hilar regions. Normal unenhanced pulmonary arteries. Normal aorta arch and descending thoracic aorta. Negative for acute fracture of the ribs, manubrium, sternum and scapulae. Negative for fracture of the right clavicle. Old fracture of the left clavicle repaired with plate and screw hardware. Old fractures of the anterior left second and third ribs. Negative for fracture of the thoracic spine. ABDOMEN AND PELVIS Normal liver. Normal gallbladder and extrahepatic biliary system. Normal spleen. Normal pancreas. Normal bilateral adrenal glands. Mild bilateral hydronephrosis without renal, ureteral or bladder stones. Normal left kidney. Normal visualized stomach. Normal small intestine. Normal stool-filled colon. There is non-visualization of the appendix. Normal abdominal aorta. Normal inferior vena cava. Normal retroperitoneum. Normal abdominal wall. Negative for fracture of the lumbar spine, sacrum, pelvis or proximal femora. Mild levocurvature of the lower lumbar spine. Distended urinary bladder CT/CT Chest, Abd, Pel w/Contrast IMPRESSION: No acute trauma related findings of the abdomen or chest. Negative for acute thoracic fracture. Old left clavicle fracture repaired with plate and screw hardware. Old anterior fractures of the left second and third ribs. Mild bilateral hydronephrosis without renal, ureteral or bladder stones. Large volume distended urinary bladder. Normal stomach and small bowel. Stool filled normal colon. Appendix not visualized. Negative for acute fracture of the lumbar spine, pelvis, sacrum or proximal femora. Electronically Signed: Criss Baldwin MD at 21:14 EDT , Service support ,
[2021-01-16] MEDS: Morphine 4 MG/ML Syringe IV ×2 (20:02→21:21)
[2021-01-16] MEDS: Ondansetron 4 MG/2 ML Vial IV (20:02)
[2021-01-16 20:18] LABS: Anion Gap 10 (5-15); BUN 15 mg/dL (7-18); Calcium,Total 8.8 mg/dL (8.5-10.1); Chloride 99 mmol/L (98-107); Creatinine, Serum 0.94 mg/dL (0.70-1.30); EST Glomerular Filtration Rate 101 mL/min (>60); Est Glom Filt Rate - Afr Amer 122 mL/min (>60); Estimated Creatinine Clearance 108.41 ml/min; Glucose 484 mg/dL (74-106); Potassium 4.2 mmol/L (3.5-5.1); Sodium Level 134 mmol/L (136-145)
--- NOTE | 2021-01-16 20:27 | EX.ED.DYSGE1 ---
HPI History of Present Illness Chief Complaint: Other, Pain/Inj Narrative Narrative: 30-year-old male presenting with right-sided rib pain. 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 This did not occur at work. He has pain to his right ribs. He has mild shortness of breath. Denies other complaints. PFSH PFSH Home Medications insulin lispro 100 unit SQ CONT 05/02/20 [History Last Taken Unknown] insulin glargine 30 units SC 1100,2200 #1 pen 09/24/20 [Rx Last Taken Unknown] pen needle, diabetic, safety #1 box 09/24/20 [Rx Last Taken Unknown] oxycodone-acetaminophen 1 tab PO Q6H PRN PRN 3 Days #12 tablet 01/16/21 [Rx Last Taken Unknown] Allergy/AdvReac Type Severity Reaction Status Date / Time cefaclor [From Ceclor] Allergy Hives Verified 01/16/21 19:19 erythromycin base Allergy Rash Verified 01/16/21 19:19 [From Pediazole] promethazine [From Phenergan] Allergy PT UNSURE Verified 01/16/21 19:18 OF REACTION sulfisoxazole Allergy Rash Verified 01/16/21 19:19 [From Pediazole] Penicillins [PCN] AdvReac Rash Verified 01/16/21 19:17 Social History Smoking Status: Current every day smoker ROS ROS ED Constitutional Constitutional ED: Denies fever(s) Eyes Eyes: Denies change in vision ENT ENT ED: Denies rhinorrhea or sore throat Cardiovascular Cardiovascular: Reports other Details: Right lower rib pain ; Denies chest pain or palpitations Respiratory/Chest Respiratory/Chest: Reports dyspnea; Denies cough Gastrointestinal Gastrointestinal: Denies abdominal pain, diarrhea, nausea or vomiting Genitourinary Genitourinary ED: Denies dysuria Musculoskeletal Musculoskeletal: Denies myalgias Integumentary Denies rash Neurologic Neurologic: Denies headache(s) EXAM Physical Exam Const Vital Signs: 01/16/21 19:13 01/16/21 19:38 01/16/21 23:52 Temperature 97.8 F Temperature Source Temporal Pulse Rate 116 H 78 Respiratory Rate 15 18 Respiratory Effort Normal Splinting Blood Pressure 145/87 H 138/72 H Blood Pressure Mean 106 94 Pulse Ox 99 99 Oxygen Delivery Method Room Air Room Air Positive well nourished and well developed General Appearance ED: well developed HEENT Reports normocephalic and head/scalp atraumatic Eyes PERRL and EOMs intact bilaterally Neck supple General: Negative for tenderness Chest Wall inspection of chest normal Chest Narrative: Tenderness right lower ribs with no crepitus Resp normal respiratory effort and clear to auscultation bilaterally Cardio regular rate and regular rhythm GI non-distended Palpation: soft and tender RUQ; Negative for rebound tenderness present no CVA tenderness Extremity normal to inspection Neuro oriented x3 Sensorium / Orientation: alert Psych mental status grossly normal MDM MDM MDM Narrative Medical decision making narrative: Patient was given morphine, Zofran IV. Glucose 484. He admits to noncompliance with diet. He was given IV fluids and insulin subcutaneously. CT chest abdomen pelvis showed no acute findings. CT does show distended bladder. Patient urinated after CT scan was performed without difficulty. He was given additional dose of morphine with improvement. He was given prescription for Percocet. Advised to follow-up with primary care physician. Advised return to the ED for worsening complaints. Lab Data Attestation: I reviewed the patient's lab results. Labs: Laboratory Results - last 24 hr 01/16/21 01/16/21 01/16/21 19:55 21:40 22:59 Sodium 134 L Potassium 4.2 Chloride 99 Carbon Dioxide 25.0 Anion Gap 10 BUN 15 Creatinine 0.94 Estim Creat Clear Calc 108.41 Est GFR (MDRD) Af Amer 122 Est GFR (MDRD) Non-Af 101 BUN/Creatinine Ratio 16.0 Glucose 484 H* Calcium 8.8 POC Glucose 394 H 328 H Radiography Diagnostic Testing: Radiology Impression Chest/Abdomen/Pelvis CT 01/16/21 19:42 IMPRESSION: No acute trauma related findings of the abdomen or chest. Negative for acute thoracic fracture. Old left clavicle fracture repaired with plate and screw hardware. Old anterior fractures of the left second and third ribs. Mild bilateral hydronephrosis without renal, ureteral or bladder stones. Large volume distended urinary bladder. Normal stomach and small bowel. Stool filled normal colon. Appendix not visualized. Negative for acute fracture of the lumbar spine, pelvis, sacrum or proximal femora. Electronically Signed: Criss Baldwin MD at 21:14 EDT , Service support , Discharge Plan Triage Chief Complaint: Other, Pain/Inj ED Provider: Yamile Reyes Dx/Rx/DC Orders Clinical Impression: Contusion of rib Instructions: ED Chest Wall Contusion Prescriptions: New oxycodone-acetaminophen [oxycodone-acetaminophen] 1 TABLET tablet 1 tab PO Q6H PRN PRN (Reason: Pain) 3 Days Qty: 12 RF: 0 No Action insulin lispro 100 UNIT/ML cartridge 100 unit SQ CONT RF: 0 insulin glargine 100 UNITS/ML insulin pen 30 units SC 1100,2200 Qty: 1 RF: 1 (DME) pen needle, diabetic, safety 1 EACH needle 1 ea MISCELL. UD Qty: 1 RF: 0 Primary Care Provider: Care Physician,No Primary Referrals: Care Physician,No Primary [Primary Care Provider] - Disposition Disposition: Home, self care Discharge Date/Time: 01/16/21 23:54
[2021-01-16] MEDS: Insulin Lispro 100 UNIT/ML INSULN.PEN 10 UNIT SC (20:45)
[2021-01-16] MEDS: 0.9% Normal Saline 1,000 ML 999 ML IV (20:45)
[2021-01-16 21:45] LABS: Bedside Glucose 394 mg/dL (70-110)
[2021-01-16 23:10] LABS: Bedside Glucose 328 mg/dL (70-110)
[2021-01-16 23:52] VITALS: BP 138/72; PULSE 78; RESP 18; O2SAT 99
== END 2021-01-16 23:54 | disposition home or self-care (01) ==
PROVIDERS: Emergency Provider Emergency Medicine
DX: S20.219A Contusion of unspecified front wall of thorax, initial encounter (principal); X58.XXXA Exposure to other specified factors, initial encounter; Y93.89 Activity, other specified; Y92.9 Unspecified place or not applicable; Y99.9 Unspecified external cause status; F17.200 Nicotine dependence, unspecified, uncomplicated; Z79.4 Long term (current) use of insulin
CPT/HCPCS: 71260; 74177; 80048; 82962; 96361; 96374; 96375; 96376; 99282; J7030; Q9967; A4216; J2405

== ENCOUNTER 2021-01-19 22:31 | Observation (INO) | payer BC, MEDICAID, SELFPAY ==
[2021-01-19 22:31] VITALS: BP 156/107; PULSE 144; RESP 20; TEMP 36.7; O2SAT 100; BMI 28.1
--- NOTE | 2021-01-19 23:14 | EDS_ITS ---
HPI History of Present Illness Chief Complaint: Chest Other Informant: patient and spouse/S.O. 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 He fell onto bumper of the vehicle he was working on. He was seen on January 16. CT of the chest abdomen reveals no acute abnormality. He presents because of persistent pain. Blood work revealed elevated blood sugar. He does have history of DKA. He denies fever, chills night sweats. He denies upper respiratory symptoms. He denies shortness of breath. He complains of p ain with movement. He states the medicine he was prescribed is not helping with the pain. He was unable to work today. He denies blood in his urine. Tetanus Immunization: 5-10 years Prior similar symptoms: Yes Recent Illness/Hospitalization: Yes [facility] Medical History (Updated 01/20/21 @ 01:[address] Kade Quevedo MD) DM type 1 (diabetes mellitus, type 1) Home Medications insulin lispro 100 unit SQ CONT 05/02/20 [History Last Taken Unknown] insulin glargine 30 units SC 1100,2200 #1 pen 09/24/20 [Rx Last Taken Unknown] pen needle, diabetic, safety #1 box 09/24/20 [Rx Last Taken Unknown] oxycodone-acetaminophen 1 tab PO Q6H PRN PRN 3 Days #12 tablet 01/16/21 [Rx Last Taken Unknown] Allergy/AdvReac Type Severity Reaction Status Date / Time cefaclor [From Ceclor] Allergy Hives Verified 01/19/21 22:34 erythromycin base Allergy Rash Verified 01/19/21 22:34 [From Pediazole] promethazine [From Phenergan] Allergy PT UNSURE Verified 01/19/21 22:34 OF REACTION sulfisoxazole Allergy Rash Verified 01/19/21 22:34 [From Pediazole] Penicillins [PCN] AdvReac Rash Verified 01/19/21 22:34 no surgical history Social History (Updated 01/19/21 @ 23:[address] Kade Quevedo MD) household members: significant other Smoking Status: Current every day smoker alcohol intake: current alcohol intake frequency: holidays/special occasions only substance use type: does not use ROS ROS ED Constitutional Constitutional ED: Denies chills, fever(s) or subjective Eyes Eyes: Denies blurry vision or change in vision ENT ENT ED: Denies ear pain, rhinorrhea or sore throat Cardiovascular Cardiovascular: Reports chest pain; Denies palpitations or racing heartbeat Respiratory/Chest Respiratory/Chest: Denies cough, dyspnea or dyspnea on exertion Gastrointestinal Gastrointestinal: Reports abdominal pain and nausea; Denies constipation, diarrhea, melena or vomiting Genitourinary Genitourinary ED: Denies dysuria, hematuria or urinary frequency Musculoskeletal Musculoskeletal: Denies arthralgias, back pain, myalgias or neck pain Integumentary Denies Abrasions or rash Neurologic Neurologic: Denies headache(s) or paresthesias Endocrine Endocrinology: Denies cold intolerance or heat intolerance Hematologic/Lymphatic Hematologic/Lymphatic: Denies easy bleeding or easy bruising EXAM Physical Exam Const Vital Signs: 01/19/21 22:31 01/20/21 00:39 Temperature 98.0 F Temperature Source Temporal Pulse Rate 144 H 111 H Respiratory Rate 20 H 19 H Blood Pressure 156/107 H 133/90 H Blood Pressure Mean 123 104 Pulse Ox 100 100 Oxygen Delivery Method Room Air Positive well nourished, well developed and obese General Appearance ED: well developed Nutritional Appearance: obese HEENT atraumatic; Negative for tenderness Nose: Negative for septum abnormal Eyes PERRL and EOMs intact bilaterally General Eye ED: Yes other Other Details: sclerae anicteric. Conjunctive is pink. Neck full ROM General: other Trachea is midline. There is no inspiratory stridor. Chest Wall inspection of chest normal and palpation of chest normal Breast/Axilla Inspection: other Other Details: Patient reports significant pain with palpation of the lower rib/cartilage on the right. Resp No normal respiratory effort and clear to auscultation bilaterally Effort and Inspection: pain with movement Auscultation: diminished lung sounds Cardio regular rhythm, S1 normal heart sound, S2 normal heart sound and no murmurs Rate: regular rate GI no masses Auscultation: normoactive bowel sounds Palpation: soft and tender RUQ Back/Spine normal to inspection and no thoracic nor lumbar tenderness Extremity normal to inspection and full ROM Neuro oriented x3, CN's II-XII intact bilaterally and no sensory deficits noted Jina Coma Scale: document GCS findings Spontaneous Obeys Commands Oriented 15 Sensorium / Orientation: alert Motor Exam: strength 5/5 throughout Psych mental status grossly normal Skin no rashes or lesions noted and no wounds MDM MDM MDM Narrative Medical decision making narrative: With history of DKA and the fact that he is tachycardic will obtain EKG and basic blood work. His abdominal pain may be due to DKA. Will medicate with antiemetic and open analgesia for his pain. Patient was informed his abdominal pain and all likely it is due to diabetic ketoacidosis. He did receive 1 L of normal saline. Second has been ordered. Insulin drip has been ordered. Hospitalist has been paged for admission. Lab Data Attestation: I reviewed the patient's lab results. Labs: Laboratory Results - last 24 hr 01/19/21 01/19/21 01/19/21 23:50 23:50 23:50 WBC 12.7 H RBC 5.86 Hgb 18.3 H* Hct 54.5 H MCV 93.0 MCH 31.2 MCHC 33.6 RDW Std Deviation 41.9 RDW Coeff of Yaritza 12.2 Plt Count 315 MPV 10.6 Immature Gran % (Auto) 0.600 Neut % (Auto) 77.6 H Lymph % (Auto) 14.4 L [place] % (Auto) 6.0 Eos % (Auto) 0.7 Baso % (Auto) 0.7 Absolute Neuts (auto) 9.9 H Absolute Lymphs (auto) 1.83 Nucleated RBC % 0 Diff Path Review May foll Sodium 134 L Potassium 4.5 Chloride 99 Carbon Dioxide 19.0 L Anion Gap 16 H BUN 16 Creatinine 1.05 Estim Creat Clear Calc 97.05 Est GFR (MDRD) Af Amer 107 Est GFR (MDRD) Non-Af 89 BUN/Creatinine Ratio 15.2 Glucose 383 H Calcium 9.8 Total Bilirubin 0.60 AST 8 L ALT 23 Alkaline Phosphatase 121 H Total Protein 8.2 Albumin 4.0 Globulin 4.2 Albumin/Globulin Ratio 1.0 Urine Color Yellow Urine Clarity Clear Urine pH 5.0 Ur Specific [place] 1.020 Urine Protein 30 H Urine Glucose (UA) 1000 H Urine Ketones 150 A* Urine Occult Blood 10 H Urine Nitrite Negative Urine Bilirubin Negative Urine Urobilinogen Normal Ur Leukocyte Esterase Negative Urine RBC 0 SEEN Urine WBC 0 SEEN Ur Squamous Epith Cells 0 SEEN Urine Bacteria 0 SEEN Urine Mucus 0 SEEN Patient's laboratory results are consistent with diabetic ketoacidosis. He does have ketones in his urine. Suspect he will have ketones in his serum. He does have a anion gap of 16. EKG reveals sinus tach and T waves are slightly prominent. Will review and compare to prior. He did receive a fluid bolus for his hemoconcentration. Insulin drip was ordered. EKG Initial EKG: Interpretation: Sinus Tachycardia (Ventricular rate is under 26. [place] interval is 148 ms. Chip duration 82 ms. QT duration 302 ms. [place] is normal. There appears to be right atrial enlargement. T waves are slightly prominent we will need to compare to prior.) Treatment and Re-Evaluation Comments:: Patient was informed at 0100 that his abdominal pain and all likely is due to DKA. He was informed that he will require admission. He was also informed importance of compliance with diet and medication. Critical Care Time Critical Care Time: Yes Critical care time (excluding procedures): 30-74 minutes (Critical care time 34 minutes which includes obtaining history, physical exam, documentation, review of prior records, interpretation of laboratory results and initiation of therapy), Discussing w/Patient &/or Family/Pediatric Neurologist, Discussing w/Consultants and Arranging Admission or Transfer Discharge Plan Dx/Rx/DC Orders Clinical Impression: Diabetic ketoacidosis associated with type 1 diabetes mellitus, Abdominal pain Disposition Disposition: Acute Care Hospital [facility]
--- NOTE | 2021-01-19 23:21 | EKG12_ITS ---
Test Reason : DYSRHYTHMIA Blood Pressure : / mmHG Vent. Rate : 126 BPM Atrial Rate : 126 BPM P-R Int : 148 ms QRS Dur : 082 ms QT Int : 302 ms P-R-T Axes : 081 078 047 degrees QTc Int : 437 ms Sinus tachycardia Possible Right atrial enlargement Nonspecific T wave abnormality Borderline ECG Confirmed by LEANA DAVIS, NARINDER ([id number]), film editor supervisor VANDANA ALBERTO ([id number]) on 01/20/2021 10:12:26 AM Referred By: Confirmed By:NARINDER DUEÑAS MD
[2021-01-19] MEDS: 0.9% Normal Saline 1,000 ML 1000 ML IV (23:43)
[2021-01-19] MEDS: Ondansetron 4 MG/2 ML Vial IV (23:44)
[2021-01-19] MEDS: Morphine 4 MG/ML Syringe IV (23:44)
[2021-01-20] VITALS (15 sets, daily range): BP systolic 124–136; BP diastolic 82–97; PULSE 58–111; RESP 11–19; TEMP 36.1–36.9; O2SAT 96–100; BMI 27.1
[2021-01-20 00:02] LABS: Bacteria 0 SEEN /hpf (None Seen); Mucous, Urine 0 SEEN /hpf (<or=2+); Red Blood Cells-Urine 0 SEEN /hpf (0-5); Squamous Epithelial Cells - UA 0 SEEN /hpf (0-5); White Blood Cells 0 SEEN /hpf (0-5)
[2021-01-20 00:03] LABS: Absolute Lymphocyte Count 1.83 X10^3/uL (0.83-4.51); Absolute Neutrophil Count 9.9 X10^3/uL (2.0-7.7); Basophil# 0.09 X10^3/uL; Basophil% 0.7 % (0-1); Eosinophil# 0.09 X10^3/uL; Eosinophils% 0.7 % (0-5); Hematocrit 54.5 % (40-54); Lymphocyte # 1.83 X10^3/ul (0.83-4.51); Lymphocyte % 14.4 % (19-41); Mean Corp Hgb Conc 33.6 g/dL (32-36); Mean Corpuscular Hgb 31.2 pg (27.0-32.0); Mean Platelet Vol. 10.6 fl (6.2-12.0); Monocyte# 0.76 X10^3/uL; NRBC Flagged by Analyzer 0 % (0-5); Neutrophil # 9.85 X10^3/uL (2.7-7.7); Neutrophil % 77.6 % (47-70); Platelet Count 315 K/mm3 (150-450); RBC Distribution Width CV 12.2 % (11.6-14.6); RBC Distribution Width SD 41.9 fl (35.1-43.9); Red Blood Count 5.86 M/mm3 (4.6-6.2); White Blood Count 12.7 K/mm3 (4.4-11.0)
[2021-01-20 00:05] LABS: Hemoglobin 18.3 g/dL (13.0-16.5)
[2021-01-20 00:06] LABS: Color, Urine Yellow (Yellow); Glucose, Dipstick 1000 mg/dl (Normal); Leukocyte Esterase-Dipstick Negative /ul (Negative); Nitrite-Dipstick Negative (Negative); Occult Blood-Urine 10 /ul (Negative); Protein-Dipstick 30 mg/dl (Negative); Urine Bilirubin Dipstick Negative (Negative); Urine Clarity Clear (Clear); Urine Urobilinogen Normal (Normal)
[2021-01-20 00:13] LABS: Ketone-Dipstick 150 mg/dl (Negative)
[2021-01-20 00:21] LABS: AST(SGOT) 8 U/L (15-37); Alanine Aminotransfer ALT/SGPT 23 U/L (16-61); Alkaline Phosphatase 121 U/L (45-117); Anion Gap 16 (5-15); BUN 16 mg/dL (7-18); BUN/Creat Ratio 15.2 RATIO (10-20); Calcium,Total 9.8 mg/dL (8.5-10.1); Chloride 99 mmol/L (98-107); Creatinine, Serum 1.05 mg/dL (0.70-1.30); EST Glomerular Filtration Rate 89 mL/min (>60); Est Glom Filt Rate - Afr Amer 107 mL/min (>60); Estimated Creatinine Clearance 97.05 ml/min; Globulin 4.2 g/dL (2.2-4.2); Glucose 383 mg/dL (74-106); Potassium 4.5 mmol/L (3.5-5.1); Protein, Total 8.2 g/dL (6.4-8.2); Sodium Level 134 mmol/L (136-145)
[2021-01-20] MEDS: 0.9% Normal Saline 1,000 ML 1000 ML IV (01:03)
[2021-01-20] MEDS: 0.9% Normal Saline 1,000 ML 999 ML IV (01:11)
[2021-01-20 01:40] LABS: Magnesium 1.8 mg/dL (1.6-2.6)
[2021-01-20 01:46] LABS: Anion Gap 11 (5-15); BUN 14 mg/dL (7-18); BUN/Creat Ratio 18.7 RATIO (10-20); Calcium,Total 8.7 mg/dL (8.5-10.1); Chloride 104 mmol/L (98-107); Creatinine, Serum 0.75 mg/dL (0.70-1.30); EST Glomerular Filtration Rate 131 mL/min (>60); Est Glom Filt Rate - Afr Amer 158 mL/min (>60); Estimated Creatinine Clearance 135.87 ml/min; Glucose 297 mg/dL (74-106); Potassium 4.5 mmol/L (3.5-5.1); Sodium Level 135 mmol/L (136-145)
[2021-01-20 01:46] LABS: Bedside Glucose 248 mg/dL (70-110)
--- NOTE | 2021-01-20 02:36 | HP.PCM_ITS ---
HPI - General General Date of Admission: 01/20/21 HPI Narrative KANDICE MOONEY, is a 30 M who presents today with abdominal pain. Patient was seen on 01/16/2021 following a fall for which he was evaluated and diagnosed with bruised ribs. Patient reports that abdominal pain 7 out of 10 has continued and is accompanied with nausea with no vomiting. Upon review of labs patient has diabetic ketoacidosis. [facility] Medical History (Updated 01/20/21 @ 02:44 by MENDEL De León) Collar bone fracture DM type 1 (diabetes mellitus, type 1) Foot fracture, right Hypertension Home Medications insulin lispro 100 unit SQ CONT 05/02/20 [History Last Taken Unknown] insulin glargine 30 units SC 1100,2200 #1 pen 09/24/20 [Rx Last Taken Unknown] pen needle, diabetic, safety #1 box 09/24/20 [Rx Last Taken Unknown] oxycodone-acetaminophen 1 tab PO Q6H PRN PRN 3 Days #12 tablet 01/16/21 [Rx Last Taken Unknown] Allergy/AdvReac Type Severity Reaction Status Date / Time cefaclor [From Ceclor] Allergy Hives Verified 01/19/21 22:34 erythromycin base Allergy Rash Verified 01/19/21 22:34 [From Pediazole] promethazine [From Phenergan] Allergy PT UNSURE Verified 01/19/21 22:34 OF REACTION sulfisoxazole Allergy Rash Verified 01/19/21 22:34 [From Pediazole] Penicillins [PCN] AdvReac Rash Verified 01/19/21 22:34 Surgical History (Updated 01/20/21 @ 02:33 by America Sylvester) History of appendectomy Social History household members: significant other Smoking Status: Current every day smoker alcohol intake: current alcohol intake frequency: holidays/special occasions only substance use type: does not use ROS Constitutional Constitutional: Denies anorexia, chills or fatigue Cardiovascular Cardiovascular: Denies chest pain, edema or palpitations Respiratory/Chest Respiratory/Chest: Reports other Details: Right rib pain ; Denies cough, shor tness of breath at rest or shortness of breath with exertion Gastrointestinal Gastrointestinal: Reports abdominal pain and nausea Genitourinary Genitourinary: Denies dysuria Musculoskeletal Musculoskeletal: Denies back pain, extremity pain or joint pain Integumentary Integumentary: Denies dry skin or wounds Neurologic Neurologic: Denies abnormal gait, abnormal speech, confusion or dizziness Psychiatric Psychiatric: Denies anxiety or depression Endocrine Endocrinology: Denies change in body appearance Hematologic/Lymphatic Hematologic/Lymphatic: Denies easy bleeding or easy bruising Vital Signs Vital Signs Vital Signs: 01/19/21 22:31 01/20/21 00:39 01/20/21 01:42 Temperature 98.0 F 98.4 F Temperature Source Temporal Oral Pulse Rate 144 H 111 H 98 Respiratory Rate 20 H 19 H 15 Blood Pressure 156/107 H 133/90 H 136/97 H Blood Pressure Mean 123 104 110 Blood Pressure Source Blood Pressure Position Blood Pressure Location Pulse Ox 100 100 100 Oxygen Delivery Method Room Air Room Air 01/20/21 01:59 01/20/21 02:14 Temperature 97.8 F Temperature Source Temporal Pulse Rate 100 99 Respiratory Rate 12 14 Blood Pressure 127/88 H 126/87 H Blood Pressure Mean 101 100 Blood Pressure Source Monitor Monitor Blood Pressure Position Semi-Fowlers Semi-Fowlers Blood Pressure Location Right Arm Right Arm Pulse Ox 100 100 Oxygen Delivery Method Room Air Room Air Physical Exam Const alert and oriented x3 General Appearance: cooperative HEENT normocephalic and head/scalp atraumatic Eyes PERRL Neck supple, no JVD and thyroid normal General: trachea midline Lymph Lymphatic: no lymphadenopathy noted Resp normal respiratory effort, normal air movement and clear to auscultation bilaterally Effort and Inspection: symmetric chest movement and pain with movement Cardio regular rate, regular rhythm, S1 normal heart sound and S2 normal heart sound GI normal to inspection, nondistended, normoactive bowel sounds and soft to palpation Extremity normal capillary refill and no clubbing, cyanosis or edema Skin General Skin Exam: no breakdown and turgor normal Lesions: no lesions Rashes: no rashes Neuro CN's II-XII intact bilaterally Psych thought process normal, cooperative and affect normal Appearance: appropriate Lab / Micro Data Result Diagrams: 01/19/21 23:50 01/20/21 01:25 Labs: Laboratory Results - last 24 hr 01/19/21 01/19/21 01/19/21 23:50 23:50 23:50 WBC 12.7 H RBC 5.86 Hgb 18.3 H* Hct 54.5 H MCV 93.0 MCH 31.2 MCHC 33.6 RDW Std Deviation 41.9 RDW Coeff of Yaritza 12.2 Plt Count 315 MPV 10.6 Immature Gran % (Auto) 0.600 Neut % (Auto) 77.6 H Lymph % (Auto) 14.4 L Eddy % (Auto) 6.0 Eos % (Auto) 0.7 Baso % (Auto) 0.7 Absolute Neuts (auto) 9.9 H Absolute Lymphs (auto) 1.83 Nucleated RBC % 0 [address] Review May foll Sodium 134 L Potassium 4.5 Chloride 99 Carbon Dioxide 19.0 L Anion Gap 16 H BUN 16 Creatinine 1.05 Estim Creat Clear Calc 97.05 Est GFR (MDRD) Af Amer 107 Est GFR (MDRD) Non-Af 89 BUN/Creatinine Ratio 15.2 Glucose 383 H Calcium 9.8 Magnesium Total Bilirubin 0.60 AST 8 L ALT 23 Alkaline Phosphatase 121 H Total Protein 8.2 Albumin 4.0 Globulin 4.2 Albumin/Globulin Ratio 1.0 Urine Color Yellow Urine Clarity Clear Urine pH 5.0 Ur Specific [place] 1.020 Urine Protein 30 H Urine Glucose (UA) 1000 H Urine Ketones 150 A* Urine Occult Blood 10 H Urine Nitrite Negative Urine Bilirubin Negative Urine Urobilinogen Normal Ur Leukocyte Esterase Negative Urine RBC 0 SEEN Urine WBC 0 SEEN Ur Squamous Epith Cells 0 SEEN Urine Bacteria 0 SEEN Urine Mucus 0 SEEN Acetone Level POC Glucose 01/20/21 01/20/21 01/20/21 01:25 01:25 01:25 WBC RBC Hgb Hct MCV MCH MCHC RDW Std Deviation RDW Coeff of Yaritza Plt Count MPV Immature Gran % (Auto) Neut % (Auto) Lymph % (Auto) Eddy % (Auto) Eos % (Auto) Baso % (Auto) Absolute Neuts (auto) Absolute Lymphs (auto) Nucleated RBC % Diff Path Review Sodium 135 L Potassium 4.5 Chloride 104 Carbon Dioxide 20.0 L Anion Gap 11 BUN 14 Creatinine 0.75 Estim Creat Clear Calc 135.87 Est GFR (MDRD) Af Amer 158 Est GFR (MDRD) Non-Af 131 BUN/Creatinine Ratio 18.7 Glucose 297 H Calcium 8.7 Magnesium 1.8 Total Bilirubin AST ALT Alkaline Phosphatase Total Protein Albumin Globulin Albumin/Globulin Ratio Urine Color Urine Clarity Urine pH Ur Specific [place] Urine Protein Urine Glucose (UA) Urine Ketones Urine Occult Blood Urine Nitrite Urine Bilirubin Urine Urobilinogen Ur Leukocyte Esterase Urine RBC Urine WBC Ur Squamous Epith Cells Urine Bacteria Urine Mucus Acetone Level SMALL H POC Glucose 01/20/21 01:35 WBC RBC Hgb Hct MCV MCH MCHC RDW Std Deviation RDW Coeff of Yaritza Plt Count MPV Immature Gran % (Auto) Neut % (Auto) Lymph % (Auto) Eddy % (Auto) Eos % (Auto) Baso % (Auto) Absolute Neuts (auto) Absolute Lymphs (auto) Nucleated RBC % Diff Path Review Sodium Potassium Chloride Carbon Dioxide Anion Gap BUN Creatinine Estim Creat Clear Calc Est GFR (MDRD) Af Amer Est GFR (MDRD) Non-Af BUN/Creatinine Ratio Glucose Calcium Magnesium Total Bilirubin AST ALT Alkaline Phosphatase Total Protein Albumin Globulin Albumin/Globulin Ratio Urine Color Urine Clarity Urine pH Ur Specific [place] Urine Protein Urine Glucose (UA) Urine Ketones Urine Occult Blood Urine Nitrite Urine Bilirubin Urine Urobilinogen Ur Leukocyte Esterase Urine RBC Urine WBC Ur Squamous Epith Cells Urine Bacteria Urine Mucus Acetone Level POC Glucose 248 H Assessment & Plan Assessment/Plan (1) Diabetic ketoacidosis associated with type 1 diabetes mellitus: QUALIFIERS: Diabetes mellitus complication detail: without coma Qualified Code(s): E10.10 - Type 1 diabetes mellitus with ketoacidosis without coma (2) Abdominal pain: QUALIFIERS: Abdominal location: right upper quadrant Qualified Code(s): R10.11 - Right upper quadrant pain (3) Rib contusion: QUALIFIERS: Encounter type: subsequent encounter Laterality: right Qualified Code(s): S20.211D - Contusion of right front wall of thorax, subsequent encounter PLAN: -Admit to ICU for electrolyte monitoring -Continue insulin drip per protocol -BMP every 4 hours -CBC and hemoglobin A1c in a.m. -Acetaminophen and oxycodone ordered for pain from recent rib contusion -Vital signs and oxygen therapy per protocol -N.p.o. while on insulin drip -Strict intake and output DVT Prophylaxis-not indicated This patient was seen by MENDEL De León under the supervision of Dr. Johnson.
[2021-01-20] MEDS: oxyCODONE 5 MG Tablet PO ×3 (02:46→14:28)
[2021-01-20] MEDS: Acetaminophen 325 MG Tablet 650 MG PO ×3 (02:46→14:27)
[2021-01-20] MEDS: 0.9% Saline Lock 10 ML Syringe IV ×2 (03:11→08:50)
[2021-01-20] MEDS: Dext 5%-0.45% NS 1,000 ML 60 ML IV (03:12)
[2021-01-20 03:25] LABS: Bedside Glucose 273 mg/dL (70-110)
[2021-01-20 03:25] LABS: Bedside Glucose 202 mg/dL (70-110)
[2021-01-20 03:37] LABS: Absolute Lymphocyte Count 2.61 X10^3/uL (0.83-4.51); Absolute Neutrophil Count 6.2 X10^3/uL (2.0-7.7); Basophil# 0.06 X10^3/uL; Basophil% 0.6 % (0-1); Hematocrit 40.9 % (40-54); Hemoglobin 13.9 g/dL (13.0-16.5); Lymphocyte # 2.61 X10^3/ul (0.83-4.51); Lymphocyte % 27.4 % (19-41); Mean Corpuscular Hgb 31.5 pg (27.0-32.0); Mean Corpuscular Volume 92.7 fL (80-94); Mean Platelet Vol. 10.3 fl (6.2-12.0); Monocyte# 0.55 X10^3/uL; Monocyte% 5.8 % (0-10); NRBC Flagged by Analyzer 0 % (0-5); Neutrophil # 6.16 X10^3/uL (2.7-7.7); Neutrophil % 64.7 % (47-70); Platelet Count 240 K/mm3 (150-450); RBC Distribution Width CV 12.2 % (11.6-14.6); RBC Distribution Width SD 41.9 fl (35.1-43.9); Red Blood Count 4.41 M/mm3 (4.6-6.2); White Blood Count 9.5 K/mm3 (4.4-11.0)
[2021-01-20 03:53] LABS: Anion Gap 8 (5-15); BUN 13 mg/dL (7-18); BUN/Creat Ratio 19.3 RATIO (10-20); Calcium,Total 7.4 mg/dL (8.5-10.1); Chloride 110 mmol/L (98-107); Creatinine, Serum 0.67 mg/dL (0.70-1.30); EST Glomerular Filtration Rate 148 mL/min (>60); Est Glom Filt Rate - Afr Amer 179 mL/min (>60); Glucose 210 mg/dL (74-106); Potassium 3.6 mmol/L (3.5-5.1); Sodium Level 140 mmol/L (136-145)
[2021-01-20 05:11] LABS: Bedside Glucose 122 mg/dL (70-110)
[2021-01-20 05:11] LABS: Bedside Glucose 173 mg/dL (70-110)
--- NOTE | 2021-01-20 06:39 | EX.PCM.CONCC ---
Assessment & Plan Assessment/Plan (1) DKA (diabetic ketoacidoses): PLAN: RECOMMENDATIONS: 1. Resume basal insulin regimen. Start sliding scale insulin coverage. 2. Okay to advance diet. 3. Once tolerating p.o. intake, discontinue fluids. 4. Recommend nutrition consultation for diabetic education. 5. Management of musculoskeletal pain per hospitalist. 6. The patient is medically stable for transfer out of the intensive care unit. 7. Will sign off from a critical care perspective. Please call with any additional questions. IMPRESSIONS: 1. Diabetic ketoacidosis Likely secondary to outpatient noncompliance. Prior hemoglobin A1c from 4 months ago was elevated to greater than 10. Repeat A1c is pending. The patient was initially managed overnight per DKA protocol with supplemental IV fluids and continuous insulin infusion. Anion gap has been closed now x2. Therefore, the patient will be placed back on his basal twice daily insulin regimen with sliding scale coverage. Diet can be advanced accordingly. Recommend diabetic education. 2. Acute kidney injury Likely prerenal in etiology. Creatinine has normalized with volume expansion. 3. Musculoskeletal rib pain Defer management to hospitalist. Prior CT imaging was negative for acute pathology. This note was generated with [employer] dictation software. It may contain incorrect words, spelling, and punctuation that were not noted in checking the note before signing. HPI Consult Data Date of Consult: 01/20/21 HPI Narrative HPI Narrative: The patient is a 30-year-old male, with a history as outlined below, who presented to the emergency department on January 19 with rib pain, after he fell onto the fender well of a vehicle that he was working on. The patient had just been evaluated in the emergency department on January [address] chest/abdomen/pelvis was obtained and revealed no acute trauma. The patient was discharged home at that time with a prescription for Percocet. Upon return to the ED, the patient reported that the Percocet provided to him was not helping to alleviate his pain. The patient does have a known history of diabetes mellitus and reports compliance with his home insulin regimen. On presentation to the emergency department, the patient was noted to be afebrile and hemodynamically stable. He was, nevertheless, tachycardic and tachypneic. Laboratory evaluation revealed a mildly elevated white blood cell count to 13,000 with a hemoglobin of 18 g/dL. Chemistry profile was notable for a sodium of 134, bicarbonate of 19 and anion gap of 16. Glucose was elevated to 383. Small serum acetone level was noted. Prior hemoglobin A1c from September 2020 was elevated at 10.1. The patient subsequently received supplemental IV fluids and was placed on a continuous insulin infusion. He was admitted to the medical intensive care unit for management of his DKA. This morning, the patient's DKA has resolved. Anion gap has been closed x2. [facility] Medical History (Updated 01/20/21 @ 02:44 by MENDEL De León) Collar bone fracture DM type 1 (diabetes mellitus, type 1) Foot fracture, right Hypertension Home Medications insulin lispro 100 unit SQ CONT 05/02/20 [History Last Taken Unknown] insulin glargine 30 units SC 1100,2200 #1 pen 09/24/20 [Rx Last Taken Unknown] pen needle, diabetic, safety #1 box 09/24/20 [Rx Last Taken Unknown] oxycodone-acetaminophen 1 tab PO Q6H PRN PRN 3 Days #12 tablet 01/16/21 [Rx Last Taken Unknown] Allergy/AdvReac Type Severity Reaction Status Date / Time cefaclor [From Ceclor] Allergy Hives Verified 01/19/21 22:34 erythromycin base Allergy Rash Verified 01/19/21 22:34 [From Pediazole] promethazine [From Phenergan] Allergy PT UNSURE Verified 01/19/21 22:34 OF REACTION sulfisoxazole Allergy Rash Verified 01/19/21 22:34 [From Pediazole] Penicillins [PCN] AdvReac Rash Verified 01/19/21 22:34 Surgical History (Updated 01/20/21 @ 02:33 by America Sylvester) History of appendectomy Social History household members: significant other Smoking Status: Current every day smoker alcohol intake: current alcohol intake frequency: holidays/special occasions only substance use type: does not use ROS Constitutional Constitutional: Denies chills, fatigue, fever(s) or headache(s) Eyes Eyes: Denies blurry vision or change in vision ENT HEENT: Denies dizziness, dysphagia or headache(s) Cardiovascular Cardiovascular: Denies chest pain, dyspnea or edema Respiratory/Chest Respiratory/Chest: Denies cough, dyspnea or hemoptysis Gastrointestinal Gastrointestinal: Reports abdominal pain; Denies nausea or vomiting Genitourinary Genitourinary: Denies difficulty urinating Musculoskeletal Musculoskeletal: Reports other Details: Rib pain Integumentary Integumentary: Denies lesions or skin ulcer Neurologic Neurologic: Denies abnormal gait, abnormal speech or confusion Psychiatric Psychiatric: Denies anxiety or depression Endocrine Endocrinology: Denies fatigue Hematologic/Lymphatic Hematologic/Lymphatic: Denies easy bleeding or easy bruising Physical Exam Const alert, oriented x3 and no apparent distress General Appearance: cooperative HEENT normocephalic and head/scalp atraumatic Eyes PERRL and EOMs intact bilaterally Chest inspection of chest normal Resp normal respiratory effort Auscultation: Negative for rales, rhonchi or wheezes Cardio regular rate and regular rhythm GI normal to inspection, nondistended, normoactive bowel sounds Extremity no clubbing, cyanosis or edema Skin no rashes or lesions noted Neuro no focal motor deficits Psych Mood & Affect: flat affect Lab / Micro Data Result Diagrams: 01/20/21 03:05 01/20/21 03:05 Labs: Laboratory Results - last 24 hr 01/19/21 01/19/21 01/19/21 23:50 23:50 23:50 WBC 12.7 H RBC 5.86 Hgb 18.3 H* Hct 54.5 H MCV 93.0 MCH 31.2 MCHC 33.6 RDW Std Deviation 41.9 RDW Coeff of Yaritza 12.2 Plt Count 315 MPV 10.6 Immature Gran % (Auto) 0.600 Neut % (Auto) 77.6 H Lymph % (Auto) 14.4 L [place] % (Auto) 6.0 Eos % (Auto) 0.7 Baso % (Auto) 0.7 Absolute Neuts (auto) 9.9 H Absolute Lymphs (auto) 1.83 Nucleated RBC % 0 Diff Path Review May foll Sodium 134 L Potassium 4.5 Chloride 99 Carbon Dioxide 19.0 L Anion Gap 16 H BUN 16 Creatinine 1.05 Estim Creat Clear Calc 97.05 Est GFR (MDRD) Af Amer 107 Est GFR (MDRD) Non-Af 89 BUN/Creatinine Ratio 15.2 Glucose 383 H Calcium 9.8 Magnesium Total Bilirubin 0.60 AST 8 L ALT 23 Alkaline Phosphatase 121 H Total Protein 8.2 Albumin 4.0 Globulin 4.2 Albumin/Globulin Ratio 1.0 Urine Color Yellow Urine Clarity Clear Urine pH 5.0 Ur Specific [place] 1.020 Urine Protein 30 H Urine Glucose (UA) 1000 H Urine Ketones 150 A* Urine Occult Blood 10 H Urine Nitrite Negative Urine Bilirubin Negative Urine Urobilinogen Normal Ur Leukocyte Esterase Negative Urine RBC 0 SEEN Urine WBC 0 SEEN Ur Squamous Epith Cells 0 SEEN Urine Bacteria 0 SEEN Urine Mucus 0 SEEN Acetone Level POC Glucose 01/20/21 01/20/21 01/20/21 01:25 01:25 01:25 WBC RBC Hgb Hct MCV MCH MCHC RDW Std Deviation RDW Coeff of Yaritza Plt Count MPV Immature Gran % (Auto) Neut % (Auto) Lymph % (Auto) [place] % (Auto) Eos % (Auto) Baso % (Auto) Absolute Neuts (auto) Absolute Lymphs (auto) Nucleated RBC % Diff Path Review Sodium 135 L Potassium 4.5 Chloride 104 Carbon Dioxide 20.0 L Anion Gap 11 BUN 14 Creatinine 0.75 Estim Creat Clear Calc 135.87 Est GFR (MDRD) Af Amer 158 Est GFR (MDRD) Non-Af 131 BUN/Creatinine Ratio 18.7 Glucose 297 H Calcium 8.7 Magnesium 1.8 Total Bilirubin AST ALT Alkaline Phosphatase Total Protein Albumin Globulin Albumin/Globulin Ratio Urine Color Urine Clarity Urine pH Ur Specific [place] Urine Protein Urine Glucose (UA) Urine Ketones Urine Occult Blood Urine Nitrite Urine Bilirubin Urine Urobilinogen Ur Leukocyte Esterase Urine RBC Urine WBC Ur Squamous Epith Cells Urine Bacteria Urine Mucus Acetone Level SMALL H POC Glucose 01/20/21 01/20/21 01/20/21 01:35 02:08 03:05 WBC RBC Hgb Hct MCV MCH MCHC RDW Std Deviation RDW Coeff of Yaritza Plt Count MPV Immature Gran % (Auto) Neut % (Auto) Lymph % (Auto) [place] % (Auto) Eos % (Auto) Baso % (Auto) Absolute Neuts (auto) Absolute Lymphs (auto) Nucleated RBC % Diff Path Review Sodium 140 Potassium 3.6 Chloride 110 H Carbon Dioxide 22.0 Anion Gap 8 BUN 13 Creatinine 0.67 L Estim Creat Clear Calc 152.10 Est GFR (MDRD) Af Amer 179 Est GFR (MDRD) Non-Af 148 BUN/Creatinine Ratio 19.3 Glucose 210 H Calcium 7.4 L Magnesium Total Bilirubin AST ALT Alkaline Phosphatase Total Protein Albumin Globulin Albumin/Globulin Ratio Urine Color Urine Clarity Urine pH Ur Specific [place] Urine Protein Urine Glucose (UA) Urine Ketones Urine Occult Blood Urine Nitrite Urine Bilirubin Urine Urobilinogen Ur Leukocyte Esterase Urine RBC Urine WBC Ur Squamous Epith Cells Urine Bacteria Urine Mucus Acetone Level POC Glucose 248 H 273 H 01/20/21 01/20/21 01/20/21 03:05 03:08 04:03 WBC 9.5 RBC 4.41 L Hgb 13.9 Hct 40.9 MCV 92.7 MCH 31.5 MCHC 34.0 RDW Std Deviation 41.9 RDW Coeff of Yaritza 12.2 Plt Count 240 MPV 10.3 Immature Gran % (Auto) 0.500 Neut % (Auto) 64.7 Lymph % (Auto) 27.4 [place] % (Auto) 5.8 Eos % (Auto) 1.0 Baso % (Auto) 0.6 Absolute Neuts (auto) 6.2 Absolute Lymphs (auto) 2.61 Nucleated RBC % [address] Review Sodium Potassium Chloride Carbon Dioxide Anion Gap BUN Creatinine Estim Creat Clear Calc Est GFR (MDRD) Af Amer Est GFR (MDRD) Non-Af BUN/Creatinine Ratio Glucose Calcium Magnesium Total Bilirubin AST ALT Alkaline Phosphatase Total Protein Albumin Globulin Albumin/Globulin Ratio Urine Color Urine Clarity Urine pH Ur Specific [place] Urine Protein Urine Glucose (UA) Urine Ketones Urine Occult Blood Urine Nitrite Urine Bilirubin Urine Urobilinogen Ur Leukocyte Esterase Urine RBC Urine WBC Ur Squamous Epith Cells Urine Bacteria Urine Mucus Acetone Level POC Glucose 202 H 173 H 01/20/21 05:04 WBC RBC Hgb Hct MCV MCH MCHC RDW Std Deviation RDW Coeff of Yaritza Plt Count MPV Immature Gran % (Auto) Neut % (Auto) Lymph % (Auto) [place] % (Auto) Eos % (Auto) Baso % (Auto) Absolute Neuts (auto) Absolute Lymphs (auto) Nucleated RBC % Diff Path Review Sodium Potassium Chloride Carbon Dioxide Anion Gap BUN Creatinine Estim Creat Clear Calc Est GFR (MDRD) Af Amer Est GFR (MDRD) Non-Af BUN/Creatinine Ratio Glucose Calcium Magnesium Total Bilirubin AST ALT Alkaline Phosphatase Total Protein Albumin Globulin Albumin/Globulin Ratio Urine Color Urine Clarity Urine pH Ur Specific [place] Urine Protein Urine Glucose (UA) Urine Ketones Urine Occult Blood Urine Nitrite Urine Bilirubin Urine Urobilinogen Ur Leukocyte Esterase Urine RBC Urine WBC Ur Squamous Epith Cells Urine Bacteria Urine Mucus Acetone Level POC Glucose 122 H Charges/Coding Visit Charges Inpatient E&M: 55554 Init Hosp L3
[2021-01-20 07:40] LABS: Bedside Glucose 82 mg/dL (70-110)
[2021-01-20 07:55] LABS: Bedside Glucose 133 mg/dL (70-110)
[2021-01-20 08:31] LABS: Hemoglobin A1c 12.3 % (3.8-5.6)
--- NOTE | 2021-01-20 08:34 | PCM.DC ---
Discharge Instructions Diet Discharge Diet: 1800 Calorie Control Diet Activity Discharge Activity: Return to Normal Activity Weight Bearing Status: Weight bearing as tolerated Dressing / Incision Call your doctor if you observe: Fever of 101 or Higher, Coldness, Increased Pain, Numbness or Tingling, Change in Color, Inability to urinate, Inability to have a bowel movement, Shortness of breath, Dizziness, Fainting spells, Swelling in the ankles, Chest pain, Prolonged hiccupping, Increased palpitations (irregular heartbeat) and Calf discomfort Follow Up Care Test Results: Test results from this visit will be discussed in further detail at your follow-up appointment, if applicable. Discharge Plan Admission Admit Date/Time: 01/20/21 01:24 Primary Reason for Your Visit: DKA Attending Provider: Jose Barreto Primary Care Provider: Care Physician,No Primary Consulting Providers: Álvaro Eddy ; Humberto Crespo ; Siena See CLINICAL PRACTITIONER Instructions Patient Instructions: Diabetes: Understanding Carbohydrates Discharge Orders/Prescriptions Prescriptions: Continued insulin lispro 100 UNIT/ML cartridge 100 unit SQ CONT RF: 0 oxycodone-acetaminophen 1 TABLET tablet 1 tab PO Q6H PRN PRN (Reason: Pain) 3 Days Qty: 12 RF: 0 (DME) pen needle, diabetic, safety 1 EACH needle 1 ea MISCELL. UD Qty: 1 RF: 0 Changed insulin glargine 100 UNITS/ML insulin pen 30 unit SC 1100,2200 Qty: 1 RF: 2 Referrals / Follow Up: Care Physician,No Primary [Primary Care Provider] - Disposition Disposition (needs filled in before D/C Order can be placed): Home, self care
--- NOTE | 2021-01-20 08:34 | PCM.DC.SUM ---
Providers Date of Admission: 01/20/21 Primary Care Physician: No Primary Care Phys Consultations 01/20/21 06:13 Consult: Lottery Sales Clerk / Pulmonary Medicine Routine Consulting Provider: Pulmonary Medicine shonda Estrella Reason for Consult: DKA EMERGENT Consult: No MD Notified: Yes Date Notified:: 01/20/21 Time Notified: 06:13 Method of Notification: Text Reason For Visit: DKA Diagnosis Discharge Diagnosis (1) DKA (diabetic ketoacidoses): Status: Acute Code(s): E11.10 - Type 2 diabetes mellitus with ketoacidosis without coma Medications at Discharge Home Medications insulin lispro 100 unit SQ CONT 05/02/20 oxycodone-acetaminophen 1 tab PO Q6H PRN PRN 3 Days #12 tablet 01/16/21 insulin glargine 30 unit SC 1100,2200 #1 ml 01/20/21 pen needle, diabetic, safety #1 box 01/20/21 Hospital Course Summary of Care Provided Minutes Spent on Discharge: 35 Hospital Course: This is a 30-year-old gentleman was admitted with hyperglycemia, increased anion gap metabolic acidosis,, elevated serum acetone with tachycardia and tachypnea, mild leukocytosis WBC 13,000 consistent with DKA. Prior A1c in September 2020 was 10.1. Patient was admitted in ICU after volume resuscitation in ED and continued. Patient started on insulin drip which was transitioned to subcutaneous long-acting and short-acting insulin after closure of anion gap x2. Diet was advanced. As mentioned above, request for Percocet was declined as patient just had 12 tablets by ER physician. I talked to the patient to take anti-inflammatory like ibuprofen 400 mg to 600 mg daily 6 hourly as needed for pain and swelling and anti-inflammatory effect. A prescription was given for Lantus insulin and diabetic pen needle. Patient has short-acting insulin at home. Discharge medication reconciliation done. Discharge follow-up instructions completed. Discharge process discussed with the patient and all questions were answered to patient's satisfaction. Total time spent, exact 35 minutes on discharge meds reconciliation, examination, coordination of care with nurses and ancillary staff, review of imaging and blood test and discussion with the patient on follow-up instructions Physical Exam Narrative Patient complain that he got hurt on the right side of chest about 6/7 days ago while working on the bumper of the vehicle. He was seen in ED on and was given prescription for Percocet 5/325 total of 12 tablets. Patient still wants prescription of Percocet which was declined. Denies abdominal pain, nausea vomiting or other nonspecific symptoms related to DKA. DKA resolved. General: Alert, Oriented x3, Cooperative HEENT: Atraumatic, PERRLA, EOMI, Normocephalic Oral: No Gingival or Mucosal Lesions/ Ulcerations Neck: Supple, No JVD, Negative Carotid Bruits Chest/lungs: Mild tenderness on the right lower ribs. No surgical emphysema/bony crepitus. Air entry diminished in bilateral lungs due to decreased breathing effort. No crepitation/rhonchi Cardiovascular: Regular rate, Regular Rhythm, Normal S1, Normal S2, No murmurs Abdomen: Bowel Sounds Present, Soft, Non Tender, Non-Distended : No renal angle tenderness. No suprapubic tenderness. Extremities: No edema, Capillary Refill Less than 3 Seconds Skin: No rashes, No breakdown Musculoskeletal: No Tenderness to Palpation of Joints or Extremities Neurological: Cranial nerves II-XII grossly intact, Deep Tendon Reflexes 2+/4 and Symmetrical, Neuro grossly intact Psych/Mental Status: Normal Affect, Appropriate. ABG / Lab / Microbiology Data Result Diagrams: 01/20/21 03:05 01/20/21 03:05 Laboratory: Laboratory Results - last 24 hr 01/19/21 01/19/21 01/19/21 23:50 23:50 23:50 WBC 12.7 H RBC 5.86 Hgb 18.3 H* Hct 54.5 H MCV 93.0 MCH 31.2 MCHC 33.6 RDW Std Deviation 41.9 RDW Coeff of Yaritza 12.2 Plt Count 315 MPV 10.6 Immature Gran % (Auto) 0.600 Neut % (Auto) 77.6 H Lymph % (Auto) 14.4 L Mcminn % (Auto) 6.0 Eos % (Auto) 0.7 Baso % (Auto) 0.7 Absolute Neuts (auto) 9.9 H Absolute Lymphs (auto) 1.83 Nucleated RBC % 0 [address] Path Review May foll Sodium 134 L Potassium 4.5 Chloride 99 Carbon Dioxide 19.0 L Anion Gap 16 H BUN 16 Creatinine 1.05 Estim Creat Clear Calc 97.05 Est GFR (MDRD) Af Amer 107 Est GFR (MDRD) Non-Af 89 BUN/Creatinine Ratio 15.2 Glucose 383 H Hemoglobin A1c Calcium 9.8 Magnesium Total Bilirubin 0.60 AST 8 L ALT 23 Alkaline Phosphatase 121 H Total Protein 8.2 Albumin 4.0 Globulin 4.2 Albumin/Globulin Ratio 1.0 Urine Color Yellow Urine Clarity Clear Urine pH 5.0 Ur Specific [place] 1.020 Urine Protein 30 H Urine Glucose (UA) 1000 H Urine Ketones 150 A* Urine Occult Blood 10 H Urine Nitrite Negative Urine Bilirubin Negative Urine Urobilinogen Normal Ur Leukocyte Esterase Negative Urine RBC 0 SEEN Urine WBC 0 SEEN Ur Squamous Epith Cells 0 SEEN Urine Bacteria 0 SEEN Urine Mucus 0 SEEN Acetone Level POC Glucose 01/20/21 01/20/21 01/20/21 01:25 01:25 01:25 WBC RBC Hgb Hct MCV MCH MCHC RDW Std Deviation RDW Coeff of Yairtza Plt Count MPV Immature Gran % (Auto) Neut % (Auto) Lymph % (Auto) Mcminn % (Auto) Eos % (Auto) Baso % (Auto) Absolute Neuts (auto) Absolute Lymphs (auto) Nucleated RBC % Diff Path Review Sodium 135 L Potassium 4.5 Chloride 104 Carbon Dioxide 20.0 L Anion Gap 11 BUN 14 Creatinine 0.75 Estim Creat Clear Calc 135.87 Est GFR (MDRD) Af Amer 158 Est GFR (MDRD) Non-Af 131 BUN/Creatinine Ratio 18.7 Glucose 297 H Hemoglobin A1c Calcium 8.7 Magnesium 1.8 Total Bilirubin AST ALT Alkaline Phosphatase Total Protein Albumin Globulin Albumin/Globulin Ratio Urine Color Urine Clarity Urine pH Ur Specific [place] Urine Protein Urine Glucose (UA) Urine Ketones Urine Occult Blood Urine Nitrite Urine Bilirubin Urine Urobilinogen Ur Leukocyte Esterase Urine RBC Urine WBC Ur Squamous Epith Cells Urine Bacteria Urine Mucus Acetone Level SMALL H POC Glucose 01/20/21 01/20/21 01/20/21 01:35 02:08 03:05 WBC RBC Hgb Hct MCV MCH MCHC RDW Std Deviation RDW Coeff of Yaritza Plt Count MPV Immature Gran % (Auto) Neut % (Auto) Lymph % (Auto) Mcmin[place] % (Auto) Eos % (Auto) Baso % (Auto) Absolute Neuts (auto) Absolute Lymphs (auto) Nucleated RBC % Diff Path Review Sodium Potassium Chloride Carbon Dioxide Anion Gap BUN Creatinine Estim Creat Clear Calc Est GFR (MDRD) Af Amer Est GFR (MDRD) Non-Af BUN/Creatinine Ratio Glucose Hemoglobin A1c 12.3 H Calcium Magnesium Total Bilirubin AST ALT Alkaline Phosphatase Total Protein Albumin Globulin Albumin/Globulin Ratio Urine Color Urine Clarity Urine pH Ur Specific [place] Urine Protein Urine Glucose (UA) Urine Ketones Urine Occult Blood Urine Nitrite Urine Bilirubin Urine Urobilinogen Ur Leukocyte Esterase Urine RBC Urine WBC Ur Squamous Epith Cells Urine Bacteria Urine Mucus Acetone Level POC Glucose 248 H 273 H 01/20/21 01/20/21 01/20/21 03:05 03:05 03:08 WBC 9.5 RBC 4.41 L Hgb 13.9 Hct 40.9 MCV 92.7 MCH 31.5 MCHC 34.0 RDW Std Deviation 41.9 RDW Coeff of Yaritza 12.2 Plt Count 240 MPV 10.3 Immature Gran % (Auto) 0.500 Neut % (Auto) 64.7 Lymph % (Auto) 27.4 Mcminn % (Auto) 5.8 Eos % (Auto) 1.0 Baso % (Auto) 0.6 Absolute Neuts (auto) 6.2 Absolute Lymphs (auto) 2.61 Nucleated RBC % [address] Review Sodium 140 Potassium 3.6 Chloride 110 H Carbon Dioxide 22.0 Anion Gap 8 BUN 13 Creatinine 0.67 L Estim Creat Clear Calc 152.10 Est GFR (MDRD) Af Amer 179 Est GFR (MDRD) Non-Af 148 BUN/Creatinine Ratio 19.3 Glucose 210 H Hemoglobin A1c Calcium 7.4 L Magnesium Total Bilirubin AST ALT Alkaline Phosphatase Total Protein Albumin Globulin Albumin/Globulin Ratio Urine Color Urine Clarity Urine pH Ur Specific [place] Urine Protein Urine Glucose (UA) Urine Ketones Urine Occult Blood Urine Nitrite Urine Bilirubin Urine Urobilinogen Ur Leukocyte Esterase Urine RBC Urine WBC Ur Squamous Epith Cells Urine Bacteria Urine Mucus Acetone Level POC Glucose 202 H 01/20/21 01/20/21 01/20/21 04:03 05:04 06:01 WBC RBC Hgb Hct MCV MCH MCHC RDW Std Deviation RDW Coeff of Yaritza Plt Count MPV Immature Gran % (Auto) Neut % (Auto) Lymph % (Auto) Mcminn % (Auto) Eos % (Auto) Baso % (Auto) Absolute Neuts (auto) Absolute Lymphs (auto) Nucleated RBC % Diff Path Review Sodium Potassium Chloride Carbon Dioxide Anion Gap BUN Creatinine Estim Creat Clear Calc Est GFR (MDRD) Af Amer Est GFR (MDRD) Non-Af BUN/Creatinine Ratio Glucose Hemoglobin A1c Calcium Magnesium Total Bilirubin AST ALT Alkaline Phosphatase Total Protein Albumin Globulin Albumin/Globulin Ratio Urine Color Urine Clarity Urine pH Ur Specific [place] Urine Protein Urine Glucose (UA) Urine Ketones Urine Occult Blood Urine Nitrite Urine Bilirubin Urine Urobilinogen Ur Leukocyte Esterase Urine RBC Urine WBC Ur Squamous Epith Cells Urine Bacteria Urine Mucus Acetone Level POC Glucose 173 H 122 H 82 01/20/21 07:51 WBC RBC Hgb Hct MCV MCH MCHC RDW Std Deviation RDW Coeff of Yaritza Plt Count MPV Immature Gran % (Auto) Neut % (Auto) Lymph % (Auto) [place]min[place] % (Auto) Eos % (Auto) Baso % (Auto) Absolute Neuts (auto) Absolute Lymphs (auto) Nucleated RBC % Diff Path Review Sodium Potassium Chloride Carbon Dioxide Anion Gap BUN Creatinine Estim Creat Clear Calc Est GFR (MDRD) Af Amer Est GFR (MDRD) Non-Af BUN/Creatinine Ratio Glucose Hemoglobin A1c Calcium Magnesium Total Bilirubin AST ALT Alkaline Phosphatase Total Protein Albumin Globulin Albumin/Globulin Ratio Urine Color Urine Clarity Urine pH Ur Specific [place] Urine Protein Urine Glucose (UA) Urine Ketones Urine Occult Blood Urine Nitrite Urine Bilirubin Urine Urobilinogen Ur Leukocyte Esterase Urine RBC Urine WBC Ur Squamous Epith Cells Urine Bacteria Urine Mucus Acetone Level POC Glucose 133 H Meaningful Use Info Meaningful Use Diagnoses (Choose all that apply): None applicable Discharge Plan Admission Admit Date/Time: 01/20/21 01:24 Primary Reason for Your Visit: DKA Attending Provider: Jose Barreto Primary Care Provider: Estrella Rankin Consulting Providers: Álvaro Eddy ; Humberto Crespo ; [place] See INCIDENT RESPONSE ENGINEER Instructions Patient Instructions: Diabetes: Understanding Carbohydrates, Diabetes: Caring for Your Body, ED Contusion, Rib Additional Instructions / Restrictions: Can take Motrin [id number] 400-600 mg every 8 hours for pain. Discharge Orders/Prescriptions Prescriptions: Continued insulin lispro 100 UNIT/ML cartridge 100 unit SQ CONT RF: 0 oxycodone-acetaminophen 1 TABLET tablet 1 tab PO Q6H PRN PRN (Reason: Pain) 3 Days Qty: 12 RF: 0 (DME) pen needle, diabetic, safety 1 EACH needle 1 ea MISCELL. UD Qty: 1 RF: 0 Changed insulin glargine 100 UNITS/ML insulin pen 30 unit SC 1100,2200 Qty: 1 RF: 2 Referrals / Follow Up: Care Physician,No Primary [NON-STAFF] - Estrella Raknin NP-C [Primary Care Provider] - 01/29/21 9:00 am (Advised to follow-up in 1 week.) Disposition Disposition (needs filled in before D/C Order can be placed): Home, self care
[2021-01-20] MEDS: Potassium Chloride Oral Tablet 20 MEQ 40 MEQ PO (08:49)
[2021-01-20 10:05] LABS: Bedside Glucose 322 mg/dL (70-110)
[2021-01-20 10:15] LABS: Pathologist Review Reviewed
[2021-01-20 12:11] LABS: Bedside Glucose 332 mg/dL (70-110)
[2021-01-20] MEDS: Insulin Lispro 100 UNIT/ML INSULN.PEN SC (12:11)
--- NOTE | 2021-01-20 12:12 | CASEMGMT ---
MAYA KANG updated that patient does not have PCP. MAYA KANG in to discuss PCP list with patient. Patient states that he follows at the [facility] and sees GAYATRI Mahmood. MAYA KANG updated the patient's chart. MAYA KANG updated nursing. Nursing called and scheduled appointment at [facility] for 01/29/21 0900. Per chart patient was to establish with Mud Engineer in [place] on 12/02. MAYA KANG called [facility] to inquire if patient went to appt and patient did not attend this appt. MAYA KANG in to update patient regarding appt with [facility] and if he would like to follow-up with brim greaser operator. Patient states he would just like to follow-up at the [facility]. MAYA KANG inquired if patient has glucometer, testing supplies, insulin, and needles. Patient states that he could use refills on his Lantus and pen needles. Hospitalist sent prescriptions to [facility]. MAYA KANG called [facility], patient's preferred pharmacy, and spoke with pharmacist. Per [facility] patient has refills on his insulin prescriptions. MAYA KANG updated the patient he has refills available at [facility] for his insulin when he needs them. Patient had no further questions or concerns at this time.
== END 2021-01-20 15:05 | disposition home or self-care (01) ==
LOC: ED 01-20 01:03 → ICU 01-20 07:21
PROVIDERS: Nurse Practitioner Family; Admitting Provider Family Medicine; Emergency Provider Emergency Medicine; PCP Nurse Practitioner Adult Health; Visit Provider Internal Medicine
DX: E10.10 Type 1 diabetes mellitus with ketoacidosis without coma (principal); F17.200 Nicotine dependence, unspecified, uncomplicated; Z79.4 Long term (current) use of insulin; I10 Essential (primary) hypertension; S20.211A Contusion of right front wall of thorax, initial encounter; X58.XXXA Exposure to other specified factors, initial encounter; Z91.19 Patient's noncompliance with other medical treatment and regimen; N17.9 Acute kidney failure, unspecified
CPT/HCPCS: 80048; 80053; 81001; 82009; 82962; 83036; 83735; 85025; 93005; 96361; 96365; 96366; 96375; 97802; 99218; 99285; J7030; A4216; G0378; J2405; J7799

== ENCOUNTER 2021-01-21 17:08 | Emergency (ER) | payer BC, MEDICAID, SELFPAY ==
[2021-01-20 01:59] VITALS: BMI 27.1
[2021-01-21 17:10] VITALS: BP 155/93; PULSE 123; RESP 15; TEMP 36.6; O2SAT 98; BMI 28.1
--- NOTE | 2021-01-21 17:51 | EX.ED.DYSGE1 ---
HPI History of Present Illness Chief Complaint: Hyperglycemia Informant: patient and spouse/S.O. Onset/Context/Timing Onset: Today Current Severity: Mild Maximum Severity: Mild Narrative Narrative: 30-year-old male history of type 1 diabetes recently hospitalized for DKA. Patient with elevated blood sugar. No nausea nor vomiting. No diarrhea or fever. Denies any fever or chills. Prior similar symptoms: Yes Recent Illness/Hospitalization: Yes PFSH PFSH Medical History Collar bone fracture DM type 1 (diabetes mellitus, type 1) Foot fracture, right Hypertension Home Medications insulin lispro 100 unit SQ CONT 05/02/20 [History Last Taken Unknown] insulin glargine 30 unit SC 1100,2200 #1 ml 01/20/21 [Rx Last Taken Unknown] pen needle, diabetic, safety #1 box 01/20/21 [Rx Last Taken Unknown] hydrocodone-acetaminophen 1 tab PO Q4H PRN 4 Days #14 tab 01/21/21 [Rx Last Taken Unknown] Allergy/AdvReac Type Severity Reaction Status Date / Time cefaclor [From Ceclor] Allergy Hives Verified 01/21/21 17:13 erythromycin base Allergy Rash Verified 01/21/21 17:13 [From Pediazole] promethazine [From Phenergan] Allergy PT UNSURE Verified 01/21/21 17:13 OF REACTION sulfisoxazole Allergy Rash Verified 01/21/21 17:13 [From Pediazole] Penicillins [PCN] AdvReac Rash Verified 01/21/21 17:13 Surgical History History of appendectomy Social History household members: significant other Smoking Status: Current every day smoker alcohol intake: current alcohol intake frequency: holidays/special occasions only substance use type: does not use ROS ROS ED Review of Systems ROS Unobtainable: Denies due to encephalopathy Constitutional Constitutional ED: Denies chills or fever(s) Eyes Eyes: Denies change in vision ENT ENT ED: Denies ear pain or sore throat Cardiovascular Cardiovascular: Denies chest pain or palpitations Respiratory/Chest Respiratory/Chest: Denies cough or dyspnea Gastrointestinal Gastrointestinal: Denies abdominal pain, diarrhea, nausea or vomiting Genitourinary Genitourinary ED: Denies dysuria Musculoskeletal Musculoskeletal: Denies myalgias Integumentary Denies rash Neurologic Neurologic: Denies headache(s) Psychiatric Psychiatric: Denies depression Endocrine Endocrinology: Denies polyuria Allergic/Immunologic Allergic/Immunologic ED: Denies urticaria EXAM Physical Exam Narrative Exam Narrative: Young male no acute distress vital signs stable afebrile. HEENT exam unremarkable. Neck nontender. Lungs clear to auscultation bilaterally. Heart tachycardic no murmur. Abdomen soft nontender normal bowel sounds no peritoneal signs. Right lower rib is tender to palpation there is no gross bony deformity. No crepitance or subcu air. No bruising. Recently was evaluated for rib injury. Patient moving all 4 extremities. No edema. Back nontender. Neurologically is awake alert with no focal motor deficits. Const Vital Signs: 01/21/21 17:10 01/21/21 18:10 Temperature 97.8 F Temperature Source Temporal Pulse Rate 123 H Respiratory Rate 15 Respiratory Effort Normal Non-Labored Respiratory Pattern Normal Blood Pressure 155/93 H Blood Pressure Mean 113 Pulse Ox 98 Oxygen Delivery Method Room Air Positive well nourished and well developed General Appearance ED: well developed HEENT Negative for trauma or tenderness Eyes PERRL and EOMs intact bilaterally Neck no lymphadenopathy, supple and no JVD General: Negative for tenderness Chest Wall Chest Narrative: Tender right lower rib in the midportion. Resp normal respiratory effort and clear to auscultation bilaterally Cardio regular rhythm Rate: tachycardic GI normal to inspection, nondistended, normoactive bowel sounds, non-tender and non-distended Auscultation: normoactive bowel sounds Palpation: soft Back/Spine no CVA tenderness Extremity normal to inspection Neuro oriented x3 Sensorium / Orientation: alert Motor Exam: strength 5/5 throughout Psych mental status grossly normal Skin no rashes or lesions noted MDM MDM MDM Narrative Medical decision making narrative: 30-year-old type I diabetic with elevated blood sugar rule out DKA. Treated with IV fluids and screening labs being obtained. Lab Data Lab results narrative: CBC unremarkable white count of 10 hemoglobin 14. Serum ketones negative. Chemistries normal gap of 6 normal creatinine. Glucose elevated to 95. Patient is obviously not in DKA. Will be treated for his hyperglycemia and discharged home. Labs: Laboratory Results - last 24 hr 01/21/21 01/21/21 01/21/21 17:58 17:58 17:58 WBC 10.5 RBC 4.56 L Hgb 14.5 Hct 41.3 MCV 90.6 MCH 31.8 MCHC 35.1 RDW Std Deviation 39.8 RDW Coeff of Yaritza 12.1 Plt Count 263 MPV 10.2 Immature Gran % (Auto) 0.200 Neut % (Auto) 62.9 Lymph % (Auto) 27.2 [place] % (Auto) 7.3 Eos % (Auto) 1.7 Baso % (Auto) 0.7 Absolute Neuts (auto) 6.6 Absolute Lymphs (auto) 2.84 Nucleated RBC % 0 Sodium 137 Potassium 3.5 Chloride 103 Carbon Dioxide 28.0 Anion Gap 6 BUN 16 Creatinine 0.78 Estim Creat Clear Calc 130.65 Est GFR (MDRD) Af Amer 152 Est GFR (MDRD) Non-Af 126 BUN/Creatinine Ratio 20.6 H Glucose 295 H Calcium 9.2 Acetone Level NEGATIVE Discharge Plan Triage Chief Complaint: Hyperglycemia ED Provider: Jeremie Conway Dx/Rx/DC Orders Clinical Impression: Hyperglycemia Instructions: ED Diabetic Hyperglycemia Prescriptions: New hydrocodone-acetaminophen 5-325 mg tablet 1 tab PO Q4H PRN (Reason: pain) 4 Days Qty: 14 RF: 0 No Action insulin lispro 100 UNIT/ML cartridge 100 unit SQ CONT RF: 0 (DME) pen needle, diabetic, safety 1 EACH needle 1 ea MISCELL. UD Qty: 1 RF: 0 insulin glargine 100 UNITS/ML insulin pen 30 unit SC 1100,2200 Qty: 1 RF: 2 Primary Care Provider: Estrella Rankin Referrals: Estrella Rankin, GAYATRI-C [Primary Care Provider] - Activity Restrictions/Additional Instructions: Limited Poteet for pain. Otherwise Motrin. Watch your blood sugars closely. Return if feeling worse or follow-up with your primary care physician. Disposition Disposition: Home, self care
[2021-01-21 18:07] LABS: Absolute Lymphocyte Count 2.84 X10^3/uL (0.83-4.51); Absolute Neutrophil Count 6.6 X10^3/uL (2.0-7.7); Basophil# 0.07 X10^3/uL; Basophil% 0.7 % (0-1); Eosinophil# 0.18 X10^3/uL; Eosinophils% 1.7 % (0-5); Hematocrit 41.3 % (40-54); Hemoglobin 14.5 g/dL (13.0-16.5); Lymphocyte # 2.84 X10^3/ul (0.83-4.51); Lymphocyte % 27.2 % (19-41); Mean Corp Hgb Conc 35.1 g/dL (32-36); Mean Corpuscular Hgb 31.8 pg (27.0-32.0); Mean Corpuscular Volume 90.6 fL (80-94); Mean Platelet Vol. 10.2 fl (6.2-12.0); Monocyte# 0.76 X10^3/uL; Monocyte% 7.3 % (0-10); NRBC Flagged by Analyzer 0 % (0-5); Neutrophil # 6.58 X10^3/uL (2.7-7.7); Neutrophil % 62.9 % (47-70); Platelet Count 263 K/mm3 (150-450); RBC Distribution Width CV 12.1 % (11.6-14.6); RBC Distribution Width SD 39.8 fl (35.1-43.9); Red Blood Count 4.56 M/mm3 (4.6-6.2); White Blood Count 10.5 K/mm3 (4.4-11.0)
[2021-01-21] MEDS: 0.9% Normal Saline 1,000 ML 1000 ML IV (18:07)
[2021-01-21 18:34] LABS: Anion Gap 6 (5-15); BUN 16 mg/dL (7-18); BUN/Creat Ratio 20.6 RATIO (10-20); Calcium,Total 9.2 mg/dL (8.5-10.1); Chloride 103 mmol/L (98-107); Creatinine, Serum 0.78 mg/dL (0.70-1.30); EST Glomerular Filtration Rate 126 mL/min (>60); Est Glom Filt Rate - Afr Amer 152 mL/min (>60); Estimated Creatinine Clearance 130.65 ml/min; Glucose 295 mg/dL (74-106); Potassium 3.5 mmol/L (3.5-5.1); Sodium Level 137 mmol/L (136-145)
[2021-01-21] MEDS: HYDROcodone Bitartrate/Apap 5/325 Tablet PO (18:48)
[2021-01-21 19:14] VITALS: BP 153/83; PULSE 115; RESP 16; O2SAT 99
[2021-01-21 19:15] VITALS: BP 153/53; PULSE 78; RESP 17; TEMP 36.7; O2SAT 99
[2021-01-21] MEDS: oxyCODONE 5 MG Tablet PO (19:28)
== END 2021-01-21 19:29 | disposition home or self-care (01) ==
PROVIDERS: Emergency Provider Emergency Medicine; PCP Nurse Practitioner Adult Health
DX: E10.65 Type 1 diabetes mellitus with hyperglycemia (principal); I10 Essential (primary) hypertension; F17.200 Nicotine dependence, unspecified, uncomplicated; Z79.4 Long term (current) use of insulin
CPT/HCPCS: 80048; 82009; 85025; 96360; 99283; J7030

== ENCOUNTER 2021-03-09 05:20 | Observation (INO) | payer BC, MEDICAID, SELFPAY ==
[2021-03-09] VITALS (21 sets, daily range): BP systolic 123–155; BP diastolic 68–95; PULSE 63–118; RESP 12–106; TEMP 35.5–36.8; O2SAT 96–100; BMI 26.5; BMI 26.6
--- NOTE | 2021-03-09 05:52 | ED.VIS.CHEST ---
HPI History of Present Illness Chief Complaint: Chest Pain Informant: patient Onset/Context/Timing Onset: Today Activity at onset: sudden and sleep Timing: Continuous Quality: Positive for Aching, Burning, Heaviness and Pressure Location: Substernal, Right Chest and Left Chest Worsened By: Nothing Relieved By: Nothing Associated Symptoms: Positive for Dyspnea; Negative for Nausea, Vomiting, Diaphoresis, Cough, Fever, Lightheadedness, Acid Reflux and Palpitations Narrative Narrative: Patient presents with chest pain that began approxi-2 hours prior to arrival. Patient states the pain woke him up out of sleep. Patient states the pain is constant. Patient describes the pain as sharp, aching, burning, and tightness. Patient states the pain is diffuse across his chest. Patient states nothing makes it better or worse. Patient admits to some shortness of breath. states that she asked the patient if he felt like he was going into DKA and he said he did not feel like that. CVD Risk Factors: Positive for Diabetes and Smoking; Negative for Hypertension, Hypercholesterolemia and Family History 1' </=55 PE Risk Factors: Negative for Recent Travel/Surgery, Recent Immobilization, Prior DVT or PE and OCP + Smoking + >/=35 PFSH PFSH Medical History Collar bone fracture DM type 1 (diabetes mellitus, type 1) Foot fracture, right Hypertension Home Medications hydrocodone-acetaminophen 1 tab PO Q4H PRN 4 Days #14 tab 01/21/21 [Rx Last Taken Unknown] gabapentin [Neurontin] 300 mg PO TID 03/09/21 [History Last Taken Unknown] acetaminophen [Tylenol] 650 mg PO Q4H PRN PRN #1 tab 03/10/21 [Rx Last Taken Unknown] insulin glargine 35 unit SUBCUT 1100,2200 30 Days #21 ml 03/10/21 [Rx Last Taken Unknown] insulin lispro 12 unit SUBCUT TIDCM 30 Days #10.8 ml 03/10/21 [Rx Last Taken Unknown] Allergy/AdvReac Type Severity Reaction Status Date / Time cefaclor [From Ceclor] Allergy Hives Verified 03/09/21 05:22 erythromycin base Allergy Rash Verified 03/09/21 05:22 [From Pediazole] promethazine [From Phenergan] Allergy PT UNSURE Verified 03/09/21 05:22 OF REACTION sulfisoxazole Allergy Rash Verified 03/09/21 05:22 [From Pediazole] Penicillins [PCN] AdvReac Rash Verified 03/09/21 05:22 Surgical History History of appendectomy Social History household members: significant other Smoking Status: Current every day smoker tobacco type: cigarettes alcohol intake: current alcohol intake frequency: holidays/special occasions only substance use type: does not use ROS ROS ED Constitutional Constitutional ED: Denies chills or fever(s) Eyes Eyes: Denies blurry vision or change in vision ENT ENT ED: Denies rhinorrhea or sore throat Cardiovascular Cardiovascular: Reports chest pain; Denies palpitations Respiratory/Chest Respiratory/Chest: Reports dyspnea; Denies cough Gastrointestinal Gastrointestinal: Reports nausea; Denies abdominal pain or vomiting Genitourinary Genitourinary ED: Denies dysuria or hematuria Musculoskeletal Musculoskeletal: Denies back pain or neck pain Integumentary Denies abscess or rash Neurologic Neurologic: Denies headache(s) or weakness Allergic/Immunologic Allergic/Immunologic ED: Denies mouth swelling or urticaria EXAM Physical Exam Const Vital Signs: 03/09/21 05:21 03/09/21 05:26 03/09/21 06:08 Temperature 96 F L Temperature Source Oral Pulse Rate 105 H Respiratory Rate 28 H Respiratory Effort Normal Blood Pressure 131/86 H Blood Pressure Mean 101 Pulse Ox 99 Oxygen Delivery Method Room Air 03/09/21 06:20 Temperature Temperature Source Pulse Rate 102 H Respiratory Rate 19 H Respiratory Effort Blood Pressure 137/87 H Blood Pressure Mean 103 Pulse Ox 100 Oxygen Delivery Method Positive well nourished and well developed General Appearance ED: well developed HEENT normocephalic and atraumatic Eyes PERRL and EOMs intact bilaterally Neck supple and no JVD Chest Wall palpation of chest normal Resp normal respiratory effort and clear to auscultation bilaterally Effort and Inspection: Negative for respiratory distress Cardio regular rate, regular rhythm and no murmurs GI normal to inspection, nondistended, normoactive bowel sounds, soft to palpation, non-tender and non-distended Extremity normal to inspection General Extremety ED: Negative for edema or tenderness General Extremity: Negative for edema Neuro oriented x3, CN's II-XII intact bilaterally and no sensory deficits noted Sensorium / Orientation: awake and alert Motor Exam: strength 5/5 throughout Psych mental status grossly normal Heart Score History: Moderately Suspicious ECG: Normal Age: </= 45 years Risk Factors: 1 or 2 Risk Factors Score: 2 MDM MDM MDM Narrative Medical decision making narrative: EKG was obtained. On my interpretation, it showed a normal sinus rhythm with a rate of 95. ME interval, QRS interval, and QTc intervals were all normal. [place] was normal. There are no acute ST or T wave changes. CBC shows a leukocytosis of 14.2. Comprehensive metabolic profile showed an elevated glucose of 453 with an anion gap of 22 and a CO2 of 14. Serum acetone level was large. High-sensitivity troponin was 3.9. Urinalysis does not show any evidence of urinary tract infection but there are 150 ketones and glucose of 1000 in the urine. Patient was started on insulin drip. Portable 1 view chest x-ray was obtained. On my interpretation, lung mullen are clear. There is normal cardiac silhouette. Bony thorax is normal. There is no acute process noted. Radiologist also interpreted the x-ray and agrees. Case was discussed with the hospitalist. He will admit the patient to ICU. Patient and family understood and were agreeable with the plan. All questions were answered. Lab Data Attestation: I reviewed the patient's lab results. Labs: Laboratory Results - last 24 hr 03/09/21 03/09/21 03/09/21 06:29 06:36 06:36 WBC 14.2 H RBC 5.20 Hgb 16.7 H Hct 50.6 MCV 97.3 H MCH 32.1 H MCHC 33.0 RDW Std Deviation 44.0 H RDW Coeff of Yaritza 12.2 Plt Count 292 MPV 10.4 Immature Gran % (Auto) 0.600 Neut % (Auto) 84.2 H Lymph % (Auto) 9.7 L [place] % (Auto) 3.9 Eos % (Auto) 1.0 Baso % (Auto) 0.6 Absolute Neuts (auto) 12.0 H Absolute Lymphs (auto) 1.38 Nucleated RBC % 0 Sodium 133 L Potassium 4.8 Chloride 97 L Carbon Dioxide 14.0 L Anion Gap 22 H BUN 19 H Creatinine 1.07 Estim Creat Clear Calc 95.24 Est GFR (MDRD) Af Amer 105 Est GFR (MDRD) Non-Af 87 BUN/Creatinine Ratio 17.8 Glucose 453 H* Calcium 9.6 Total Bilirubin 0.80 AST 16 ALT 30 Alkaline Phosphatase 117 Troponin I High Sens 3.9 Total Protein 7.3 Albumin 3.8 Globulin 3.5 Albumin/Globulin Ratio 1.1 Urine Color Urine Clarity Urine pH Ur Specific [place] Urine Protein Urine Glucose (UA) Urine Ketones Urine Occult Blood Urine Nitrite Urine Bilirubin Urine Urobilinogen Ur Leukocyte Esterase Urine RBC Urine WBC Ur Squamous Epith Cells Urine Bacteria Urine Mucus Acetone Level POC Glucose 432 H 03/09/21 03/09/21 06:36 07:00 WBC RBC Hgb Hct MCV MCH MCHC RDW Std Deviation RDW Coeff of Yaritza Plt Count MPV Immature Gran % (Auto) Neut % (Auto) Lymph % (Auto) [place] % (Auto) Eos % (Auto) Baso % (Auto) Absolute Neuts (auto) Absolute Lymphs (auto) Nucleated RBC % Sodium Potassium Chloride Carbon Dioxide Anion Gap BUN Creatinine Estim Creat Clear Calc Est GFR (MDRD) Af Amer Est GFR (MDRD) Non-Af BUN/Creatinine Ratio Glucose Calcium Total Bilirubin AST ALT Alkaline Phosphatase Troponin I High Sens Total Protein Albumin Globulin Albumin/Globulin Ratio Urine Color Yellow Urine Clarity Clear Urine pH 5.0 Ur Specific [place] 1.020 Urine Protein Negative Urine Glucose (UA) 1000 H Urine Ketones 150 A* Urine Occult Blood Negative Urine Nitrite Negative Urine Bilirubin Negative Urine Urobilinogen Normal Ur Leukocyte Esterase Negative Urine RBC 0 SEEN Urine WBC 0 SEEN Ur Squamous Epith Cells 0 SEEN Urine Bacteria 0 SEEN Urine Mucus 0 SEEN Acetone Level LARGE H POC Glucose Radiography Diagnostic Testing: Radiology Impression Chest X-Ray 03/09/21 06:23 IMPRESSION: No radiographic evidence of acute cardiopulmonary disease. at 0705 Reported and signed by: Moiz Chatterjee MD Electronically Signed: Moiz Chatterjee MD at 7:04 EDT Tel , Service support , EKG Initial EKG: Attestation: I personally reviewed and interpreted this EKG as follows: Interpretation: Sinus Rhythm (95) and No Acute Injury Pattern Prior EKG tracings: available for review Prior: Unchanged (01/19/2021) Discharge Plan Dx/Rx/DC Orders Clinical Impression: Diabetic ketoacidosis associated with type 1 diabetes mellitus, Hyperglycemia Disposition Disposition: Acute Care Hospital [facility] Discharge Date/Time: 03/09/21 08:36
--- NOTE | 2021-03-09 05:58 | EKG12_ITS ---
Test Reason : CP Blood Pressure : / mmHG Vent. Rate : 095 BPM Atrial Rate : 095 BPM P-R Int : 142 ms QRS Dur : 094 ms QT Int : 380 ms P-R-T Axes : 073 074 070 degrees QTc Int : 477 ms Sinus rhythm with Fusion complexes Otherwise normal ECG Confirmed by LEANA DAVIS, NARINDER ([id number]), metropolitan editor GURDEEP ARCHULETA ([id number]) on 03/11/2021 1:50:36 PM Referred By: FREDDIE Confirmed By:NARINDER DUEÑAS MD
[2021-03-09] MEDS: 0.9% Normal Saline 1,000 ML 1000 ML IV (06:20)
--- NOTE | 2021-03-09 06:23 | RAD_ITS ---
HISTORY: Chest pain EXAMINATION/TECHNIQUE: XR Chest 1 View AP view COMPARISON: AP chest x-ray from 09/22/20 FINDINGS: LINES/DEVICES: monitor technician leads. LUNGS: No focal airspace consolidation. No pulmonary edema. No pleural effusion. No pneumothorax. MEDIASTINUM AND CARDIOVASCULAR STRUCTURES: Cardiac silhouette not enlarged. Central airways and mediastinal contour are unremarkable. BONES AND SOFT TISSUES: Status post ORIF left clavicle. RAD/Chest 1 View (Portable) IMPRESSION: No radiographic evidence of acute cardiopulmonary disease. at 0705 Reported and signed by: Moiz Chatterjee MD Electronically Signed: Moiz Chatterjee MD at 7:04 EDT Tel , Service support ,
[2021-03-09 06:35] LABS: Bedside Glucose 432 mg/dL (70-110)
[2021-03-09 06:41] LABS: Absolute Lymphocyte Count 1.38 X10^3/uL (0.83-4.51); Basophil# 0.09 X10^3/uL; Basophil% 0.6 % (0-1); Eosinophil# 0.14 X10^3/uL; Hematocrit 50.6 % (40-54); Hemoglobin 16.7 g/dL (13.0-16.5); Lymphocyte # 1.38 X10^3/ul (0.83-4.51); Lymphocyte % 9.7 % (19-41); Mean Corpuscular Hgb 32.1 pg (27.0-32.0); Mean Corpuscular Volume 97.3 fL (80-94); Mean Platelet Vol. 10.4 fl (6.2-12.0); Monocyte# 0.55 X10^3/uL; Monocyte% 3.9 % (0-10); NRBC Flagged by Analyzer 0 % (0-5); Neutrophil # 11.97 X10^3/uL (2.7-7.7); Neutrophil % 84.2 % (47-70); Platelet Count 292 K/mm3 (150-450); RBC Distribution Width CV 12.2 % (11.6-14.6); White Blood Count 14.2 K/mm3 (4.4-11.0)
[2021-03-09 07:06] LABS: Bacteria 0 SEEN /hpf (None Seen); Mucous, Urine 0 SEEN /hpf (<or=2+); Red Blood Cells-Urine 0 SEEN /hpf (0-5); Squamous Epithelial Cells - UA 0 SEEN /hpf (0-5); White Blood Cells 0 SEEN /hpf (0-5)
[2021-03-09 07:08] LABS: Color, Urine Yellow (Yellow); Glucose, Dipstick 1000 mg/dl (Normal); Leukocyte Esterase-Dipstick Negative /ul (Negative); Nitrite-Dipstick Negative (Negative); Occult Blood-Urine Negative /ul (Negative); Protein-Dipstick Negative (Negative); Urine Bilirubin Dipstick Negative (Negative); Urine Clarity Clear (Clear); Urine Urobilinogen Normal (Normal)
[2021-03-09 07:14] LABS: Ketone-Dipstick 150 mg/dl (Negative)
[2021-03-09 07:22] LABS: ALB/GLOB Ratio 1.1 RATIO (0.9-2.4); AST(SGOT) 16 U/L (15-37); Alanine Aminotransfer ALT/SGPT 30 U/L (16-61); Albumin, Serum 3.8 g/dL (3.2-5.0); Alkaline Phosphatase 117 U/L (45-117); Anion Gap 22 (5-15); BUN 19 mg/dL (7-18); BUN/Creat Ratio 17.8 RATIO (10-20); Calcium,Total 9.6 mg/dL (8.5-10.1); Chloride 97 mmol/L (98-107); Creatinine, Serum 1.07 mg/dL (0.70-1.30); EST Glomerular Filtration Rate 87 mL/min (>60); Est Glom Filt Rate - Afr Amer 105 mL/min (>60); Estimated Creatinine Clearance 95.24 ml/min; Globulin 3.5 g/dL (2.2-4.2); Glucose 453 mg/dL (74-106); Potassium 4.8 mmol/L (3.5-5.1); Protein, Total 7.3 g/dL (6.4-8.2); Sodium Level 133 mmol/L (136-145); Troponin-I HS 3.9 pg/mL (3.0-78.5)
--- NOTE | 2021-03-09 07:31 | NURSING ---
DR ISATU DODD
--- NOTE | 2021-03-09 07:47 | NURSING ---
[facility] [address]
--- NOTE | 2021-03-09 07:54 | PN.HOSP_ITS ---
Hospitalist Note This note will serve as the history and physical chief complaint: Chest pain HPI: This is a 30-year-old type I diabetic presents with chest pain. Patient had not been feeling well for a day or 2 prior. Much of the history is obtained through the patient's girlfriend who is at bedside as patient is a reluctant historian at this time. She said that patient is a blood sugars typically range in the mid 200s and that he is not very diligent about checking his blood sugars. So this morning around 4 AM he developed chest pain and was just f eeling worse. Presented to the emergency room and was found to back to be in diabetic ketoacidosis. He had large acetones on his tox blood sugar was 432, urine ketones was positive. Patient did receive a bolus of IV fluids and insulin drip has been ordered. Patient's girlfriend states that he is not necessarily taking liberties with his diet but he does not have a consistent diet and his blood sugars are not well controlled. This is now his third time in the hospital with a diabetic ketoacidosis. Past medical history: Type 1 diabetes Past surgical history: Appendectomy, left clavicle repair Social: Smokes. Occasional alcohol. Family medical history negative for diabetes mellitus type 1 Medications: Reviewed: Include hydrocodone, insulin glargine, insulin lispro. Please refer to the MAR for dosing Review of systems: Patient had a chest pain, nausea has been having polydipsia but no polyuria. Does complain of boils which is suprapubic region all review of systems were negative except as mentioned above in the history of present illness and the other review of systems. Physical exam Vitals: Temp 35.5, heart rate 104, blood pressure 137/87, respirations 13 and patient are percent on room air. Patient is no acute stress and afebrile. Sleepy but does follow commands. Afebrile. Heart rate regular rate and rhythm plus S1-S2 with a murmur gallops or rubs. Lungs clear to auscultation bilaterally. Mucous membranes are moist tongue is midline. Abdomen is soft nontender nondistended normal bowel sounds hepatosplenomegaly. Extremities or any sinus clubbing or edema, no calf tenderness. Skin is warm dry throughout. Patient does have some pimples in the pubic region but no evidence of any cellulitis. Labs CBC: White count 14.2, hemoglobin 16.7, platelets 292 BMP: Sodium 133, potassium 4.8, carbon oxide 14, anion gap 22, creatinine 1.07. Urinalysis was reviewed and was unremarkable EKG was reviewed and showed normal sinus rhythm without acute changes. Chest echo personally reviewed and showed normal airways with no infiltrate or pulmonary vascular congestion. Does show surgical pair of the left clavicle Assessment and plan 1. Diabetic ketoacidosis: Likely just progression of the poorly controlled diabetes. No infectious etiology is identified. Plan is for insulin drip and IV fluids and eventually once patient is been out of diabetic ketoacidosis will transition over to his basal insulin and advance diet. Will have dietary provide additional recommendations regards to diet. Patient is not taking agree just liberties in regards to his diet but he misses meals and his blood sugars not adequately controlled at baseline. 2. Chest pain: Atypical. Heart score of 1. We will cycle troponins but if those are under otherwise unremarkable and then no additional work-up. 3. VTE prophylaxis: Low molecular heparin Visit Charges Inpatient E&M: 96951 Init Hosp L3
[2021-03-09] MEDS: 0.9% Normal Saline 1,000 ML 999 ML IV (08:58)
[2021-03-09 09:51] LABS: Bedside Glucose 284 mg/dL (70-110)
[2021-03-09] MEDS: 0.9% Normal Saline 1,000 ML 500 ML IV (10:05)
[2021-03-09 10:28] LABS: Anion Gap 19 (5-15); BUN 18 mg/dL (7-18); BUN/Creat Ratio 19.7 RATIO (10-20); Calcium,Total 8.7 mg/dL (8.5-10.1); Chloride 104 mmol/L (98-107); Creatinine, Serum 0.92 mg/dL (0.70-1.30); EST Glomerular Filtration Rate 104 mL/min (>60); Est Glom Filt Rate - Afr Amer 125 mL/min (>60); Estimated Creatinine Clearance 110.77 ml/min; Glucose 366 mg/dL (74-106); Potassium 4.3 mmol/L (3.5-5.1); Sodium Level 135 mmol/L (136-145); Troponin-I HS 3.2 pg/mL (3.0-78.5)
[2021-03-09] MEDS: Enoxaparin 40 MG/0.4 ML Syringe SC (10:38)
[2021-03-09 11:25] LABS: Bedside Glucose 333 mg/dL (70-110)
[2021-03-09] MEDS: 0.9% Normal Saline 1,000 ML 250 ML IV (12:41)
[2021-03-09 12:52] LABS: Anion Gap 11 (5-15); BUN 17 mg/dL (7-18); BUN/Creat Ratio 19.7 RATIO (10-20); Calcium,Total 8.5 mg/dL (8.5-10.1); Chloride 109 mmol/L (98-107); Creatinine, Serum 0.86 mg/dL (0.70-1.30); EST Glomerular Filtration Rate 111 mL/min (>60); Est Glom Filt Rate - Afr Amer 135 mL/min (>60); Estimated Creatinine Clearance 118.49 ml/min; Glucose 261 mg/dL (74-106); Potassium 4.6 mmol/L (3.5-5.1); Sodium Level 137 mmol/L (136-145); Troponin-I HS 4.1 pg/mL (3.0-78.5)
[2021-03-09 14:01] LABS: Bedside Glucose 205 mg/dL (70-110)
[2021-03-09] MEDS: Dext 5%-0.45% NS 1,000 ML 150 ML IV (14:10)
[2021-03-09 15:11] LABS: Bedside Glucose 202 mg/dL (70-110)
[2021-03-09 16:02] LABS: Anion Gap 8 (5-15); BUN 15 mg/dL (7-18); BUN/Creat Ratio 15.8 RATIO (10-20); Calcium,Total 8.6 mg/dL (8.5-10.1); Chloride 110 mmol/L (98-107); Creatinine, Serum 0.95 mg/dL (0.70-1.30); EST Glomerular Filtration Rate 99 mL/min (>60); Est Glom Filt Rate - Afr Amer 120 mL/min (>60); Estimated Creatinine Clearance 107.27 ml/min; Glucose 232 mg/dL (74-106); Potassium 4.9 mmol/L (3.5-5.1); Sodium Level 137 mmol/L (136-145)
[2021-03-09] MEDS: Insulin Lispro 100 UNIT/ML INSULN.PEN SC ×2 (17:18→22:33)
[2021-03-09 17:25] LABS: Bedside Glucose 215 mg/dL (70-110)
[2021-03-09] MEDS: 0.9% Saline Lock 10 ML Syringe IV (22:08)
[2021-03-09 22:16] LABS: Bedside Glucose 346 mg/dL (70-110)
[2021-03-10 04:05] VITALS: BP 140/91; PULSE 115; RESP 16; TEMP 36.9; O2SAT 99
[2021-03-10] MEDS: Insulin Lispro 100 UNIT/ML INSULN.PEN SC (06:38)
[2021-03-10 06:46] LABS: Bedside Glucose 367 mg/dL (70-110)
[2021-03-10 08:32] VITALS: BP 140/90; PULSE 91; RESP 16; TEMP 36.8; O2SAT 97
[2021-03-10] MEDS: Insulin Lispro 100 UNIT/ML INSULN.PEN 12 UNIT SC (08:34)
--- NOTE | 2021-03-10 08:36 | PCM.DC ---
Discharge Instructions Diet Discharge Diet: 1800 Calorie Control Diet Activity Discharge Activity: Return to Normal Activity Dressing / Incision Suture Line Care: - (peristant blood sugars over 300.) Follow Up Care Test Results: Test results from this visit will be discussed in further detail at your follow-up appointment, if applicable. Discharge Plan Admission Admit Date/Time: 03/09/21 07:41 Attending Provider: Bernardino Her Primary Care Provider: Estrella Rankin Discharge Orders/Prescriptions Prescriptions: New acetaminophen [Tylenol] 325 mg Tablet 650 mg PO Q4H PRN PRN (Reason: Pain Score 1-10) Qty: 1 RF: 0 Continued hydrocodone-acetaminophen 5-325 mg tablet 1 tab PO Q4H PRN (Reason: pain) 4 Days Qty: 14 RF: 0 gabapentin [Neurontin] 300 mg capsule 300 mg PO TID RF: 0 Changed insulin lispro 100 UNIT/ML cartridge 12 unit subcut TIDCM 30 Days Qty: 10.8 RF: 1 insulin glargine 100 UNITS/ML insulin pen 35 unit subcut 1100,2200 30 Days Qty: 21 RF: 1 Discontinued (DME) pen needle, diabetic, safety 1 EACH needle 1 ea MISCELL. UD Qty: 1 RF: 0 Referrals / Follow Up: Marcio Rene MD [STAFF PHYSICIAN] - Within 1 Month (Endocrinology follow up for type I diabetes.) Estrella Rankin NP-C [Primary Care Provider] - In 1 Week Disposition Disposition (needs filled in before D/C Order can be placed): Home, Self Care
--- NOTE | 2021-03-10 08:46 | DS.PCM_ITS ---
Providers Date of Admission: 03/09/21 Primary Care Physician: MENDEL Olsen Reason For Visit: DIABETIC KETOACIDOSIS Diagnosis Discharge Diagnosis (1) Diabetic ketoacidosis associated with type 1 diabetes mellitus: Status: Acute Code(s): E10.10 - Type 1 diabetes mellitus with ketoacidosis without coma Qualifiers: Diabetes mellitus complication detail: without coma Qualified Code(s): E10.10 - Type 1 diabetes mellitus with ketoacidosis without coma (2) Hyperglycemia: Status: Acute Code(s): R73.9 - Hyperglycemia, unspecified (3) Dehydration: Status: Resolved Code(s): E86.0 - Dehydration Medications at Discharge Home Medications hydrocodone-acetaminophen 1 tab PO Q4H PRN 4 Days #14 tab 01/21/21 gabapentin [Neurontin] 300 mg PO TID 03/09/21 acetaminophen [Tylenol] 650 mg PO Q4H PRN PRN #1 tab 03/10/21 insulin glargine 35 unit SUBCUT 1100,2200 30 Days #21 ml 03/10/21 insulin lispro 12 unit SUBCUT TIDCM 30 Days #10.8 ml 03/10/21 Hospital Course Operations None Procedures None Summary of Care Provided Minutes Spent on Discharge: 32 Hospital Course: 30-year-old male presents with chest pain. Patient was found to be in DKA. Blood sugar was 453 patient had a positive anion gap. Patient was started on IV fluids as well as IV insulin. Patient was out of DKA last evening. Discussed case initially with patient's with significant other at bedside on the fifth who states that the patient is more less casual with checking his blood sugars and when his blood sugars are checked they are in the mid 200 range. Discussed with the patient today about checking his blood sugar more diligently to help prevent recurrent diabetic ketoacidosis as well as long- term complications. Patient's A1c in January was 12.3. Informed patient that A1c needs to be around 7. 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 Will advise patient to continue with his signs scale insulin in addition to his prandial insulin but will increase prandial insulin from 10-12 and also increase the patient's basal insulin from 30 to 35 units twice daily. Patient said that he will need a prescription for his insulin but he is good on his other diabetic supplies. Physical Exam Const alert General Appearance: cooperative Cardio regular rate, regular rhythm, S1 normal heart sound and S2 normal heart sound GI normal to inspection, nondistended, normoactive bowel sounds, non-tender and non-distended Psych affect normal Weight / BMI Weight Weight: 76.9 kg Body Mass Index (BMI) 26.6 ABG / Lab / Microbiology Data Result Diagrams: 03/09/21 06:36 03/09/21 15:30 Laboratory: Laboratory Results - last 24 hr 03/09/21 03/09/21 03/09/21 08:50 09:15 09:41 Sodium Cancelled Cancelled Potassium Cancelled Cancelled Chloride Cancelled Cancelled Carbon Dioxide Cancelled Cancelled Anion Gap Cancelled Cancelled BUN Cancelled Cancelled Creatinine Cancelled Cancelled Estim Creat Clear Calc Cancelled Cancelled Est GFR (MDRD) Af Amer Cancelled Cancelled Est GFR (MDRD) Non-Af Cancelled Cancelled BUN/Creatinine Ratio Cancelled Cancelled Glucose Cancelled Cancelled Calcium Cancelled Cancelled Troponin I High Sens Cancelled Cancelled POC Glucose 284 H 03/09/21 03/09/21 03/09/21 10:00 11:19 12:20 Sodium 135 L 137 Potassium 4.3 4.6 Chloride 104 109 H Carbon Dioxide 12.0 L 17.0 L Anion Gap 19 H 11 BUN 18 17 Creatinine 0.92 0.86 Estim Creat Clear Calc 110.77 118.49 Est GFR (MDRD) Af Amer 125 135 Est GFR (MDRD) Non-Af 104 111 BUN/Creatinine Ratio 19.7 19.7 Glucose 366 H 261 H Calcium 8.7 8.5 Troponin I High Sens 3.2 4.1 POC Glucose 333 H 03/09/21 03/09/21 03/09/21 13:51 15:07 15:30 Sodium 137 Potassium 4.9 Chloride 110 H Carbon Dioxide 19.0 L Anion Gap 8 BUN 15 Creatinine 0.95 Estim Creat Clear Calc 107.27 Est GFR (MDRD) Af Amer 120 Est GFR (MDRD) Non-Af 99 BUN/Creatinine Ratio 15.8 Glucose 232 H Calcium 8.6 Troponin I High Sens POC Glucose 205 H 202 H 03/09/21 03/09/21 03/10/21 17:17 22:02 06:35 Sodium Potassium Chloride Carbon Dioxide Anion Gap BUN Creatinine Estim Creat Clear Calc Est GFR (MDRD) Af Amer Est GFR (MDRD) Non-Af BUN/Creatinine Ratio Glucose Calcium Troponin I High Sens POC Glucose 215 H 346 H 367 H D/C Instructions Discharge Diet: 1800 Calorie Control Diet Suture Line Care: - (peristant blood sugars over 300.) Meaningful Use Info Meaningful Use Diagnoses (Choose all that apply): None applicable Discharge Plan Admission Admit Date/Time: 03/09/21 07:41 Attending Provider: Bernardino Her Primary Care Provider: Estrella Rankin Discharge Orders/Prescriptions Prescriptions: New acetaminophen [Tylenol] 325 mg Tablet 650 mg PO Q4H PRN PRN (Reason: Pain Score 1-10) Qty: 1 RF: 0 Continued hydrocodone-acetaminophen 5-325 mg tablet 1 tab PO Q4H PRN (Reason: pain) 4 Days Qty: 14 RF: 0 gabapentin [Neurontin] 300 mg capsule 300 mg PO TID RF: 0 Changed insulin lispro 100 UNIT/ML cartridge 12 unit subcut TIDCM 30 Days Qty: 10.8 RF: 1 insulin glargine 100 UNITS/ML insulin pen 35 unit subcut 1100,2200 30 Days Qty: 21 RF: 1 Discontinued (DME) pen needle, diabetic, safety 1 EACH needle 1 ea MISCELL. UD Qty: 1 RF: 0 Referrals / Follow Up: Marcio Rene MD [STAFF PHYSICIAN] - Within 1 Month (Endocrinology follow up for type I diabetes.) Estrella Rankin NP-C [Primary Care Provider] - In 1 Week Disposition Disposition (needs filled in before D/C Order can be placed): Home, Self Care Charges/Coding Visit Charges Inpatient E&M: 60053 Disch Hosp
--- NOTE | 2021-03-10 09:54 | PHA.DC.MR ---
Pharmacy Service has performed discharge medication reconciliation for this patient. The patient's discharge medication list was reviewed for discrepancies and discrepancies were resolved. Home Medications hydrocodone-acetaminophen 1 tab PO Q4H PRN 4 Days #14 tab 01/21/21 gabapentin [Neurontin] 300 mg PO TID 03/09/21 acetaminophen [Tylenol] 650 mg PO Q4H PRN PRN #1 tab 03/10/21 insulin glargine 35 unit SUBCUT 1100,2200 30 Days #21 ml 03/10/21 insulin lispro 12 unit SUBCUT TIDCM 30 Days #10.8 ml 03/10/21
== END 2021-03-10 10:57 | disposition home or self-care (01) ==
LOC: ED 07:31 → MS3 03-10 07:48 → ICU 03-10 12:45
PROVIDERS: Emergency Provider Emergency Medicine; PCP Nurse Practitioner Adult Health
DX: E10.10 Type 1 diabetes mellitus with ketoacidosis without coma (principal); R07.89 Other chest pain; E86.0 Dehydration; R06.02 Shortness of breath; I10 Essential (primary) hypertension; F17.210 Nicotine dependence, cigarettes, uncomplicated; Z79.899 Other long term (current) drug therapy; Z79.4 Long term (current) use of insulin
CPT/HCPCS: 36415; 71045; 80048; 80053; 81001; 82009; 82962; 84484; 85025; 93005; 96361; 96365; 96366; 96372; 99218; 99285; J7030; A4216; G0378; J7799

== ENCOUNTER 2021-04-19 12:58 | Inpatient (IN) | payer BC, MEDICAID, SELFPAY ==
[2021-03-09 08:50] VITALS: BMI 26.6
[2021-04-19] VITALS (14 sets, daily range): BP systolic 126–175; BP diastolic 40–101; PULSE 106–124; RESP 12–24; TEMP 36.2–37.2; O2SAT 99–100; BMI 28.1
--- NOTE | 2021-04-19 13:17 | EKG12_ITS ---
Test Reason : CP/SOB Blood Pressure : / mmHG Vent. Rate : 107 BPM Atrial Rate : 107 BPM P-R Int : 138 ms QRS Dur : 082 ms QT Int : 342 ms P-R-T Axes : 081 072 069 degrees QTc Int : 456 ms Sinus tachycardia Right atrial enlargement Borderline ECG Confirmed by JEREMIAH DAVIS, MARTIN ([id number]), editor newspaper VANDANA ALBERTO ([id number]) on 04/21/2021 9:29:57 AM Referred By: AKOSUA Confirmed By:MARTIN DANIELS MD
--- NOTE | 2021-04-19 13:27 | EX.ED.DYSGE1 ---
HPI History of Present Illness Chief Complaint: General Illness Informant: patient Narrative Narrative: Patient is a 30-year-old male with a past medical history of diabetes, hypertension who presents to the emergency department saying he is in DKA. Over the past couple of hours he has had full body aches, vomiting. He states that his whole abdomen hurts. This is typical for him to be in diabetic ketoacidosis. He has been using his insulin regularly. He states that his blood sugars have been in the high 300s. There is a known Covid positive family member in his house. He has not been vaccinated. He denies any fevers, chills, cough. He denies any change in bowel movements. No urinary symptoms. [facility] Medical History Collar bone fracture DM type 1 (diabetes mellitus, type 1) Foot fracture, right Hypertension Home Medications hydrocodone-acetaminophen 1 tab PO Q4H PRN 4 Days #14 tab 01/21/21 [Rx Last Taken Unknown] gabapentin [Neurontin] 300 mg PO TID 03/09/21 [History Last Taken Unknown] acetaminophen [Tylenol] 650 mg PO Q4H PRN PRN #1 tab 03/10/21 [Rx Last Taken Unknown] insulin glargine 35 unit SUBCUT 1100,2200 30 Days #21 ml 03/10/21 [Rx Last Taken Unknown] insulin lispro 12 unit SUBCUT TIDCM 30 Days #10.8 ml 03/10/21 [Rx Last Taken Unknown] Allergy/AdvReac Type Severity Reaction Status Date / Time cefaclor [From Ceclor] Allergy Hives Verified 03/09/21 05:22 erythromycin base Allergy Rash Verified 03/09/21 05:22 [From Pediazole] promethazine [From Phenergan] Allergy PT UNSURE Verified 03/09/21 05:22 OF REACTION sulfisoxazole Allergy Rash Verified 03/09/21 05:22 [From Pediazole] Penicillins [PCN] AdvReac Rash Verified 03/09/21 05:22 Surgical History History of appendectomy Social History household members: significant other Smoking Status: Current every day smoker tobacco type: cigarettes alcohol intake: current alcohol intake frequency: holidays/special occasions only substance use type: does not use ROS ROS ED Constitutional Constitutional ED: Denies fever(s) Eyes Eyes: Denies change in vision ENT ENT ED: Denies epistaxis or rhinorrhea Cardiovascular Cardiovascular: Denies chest pain or palpitations Respiratory/Chest Respiratory/Chest: Denies cough or dyspnea Gastrointestinal Gastrointestinal: Reports abdominal pain and nausea; Denies diarrhea or vomiting Genitourinary Genitourinary ED: Denies dysuria, hematuria or urinary frequency Musculoskeletal Musculoskeletal: Reports myalgias; Denies back pain or neck pain Integumentary Denies rash Neurologic Neurologic: Denies dizziness, headache(s) or weakness EXAM Physical Exam Const Vital Signs: 04/19/21 12:59 04/19/21 13:59 Temperature 97.1 F L Temperature Source Temporal Pulse Rate 120 H Respiratory Rate 24 H Respiratory Effort Normal Non-Labored Blood Pressure 126/40 H Blood Pressure Mean 68 Pulse Ox 100 Positive well nourished and well developed Constitutional Narrative: Ill but nontoxic appearing. General Appearance ED: well developed HEENT Reports normocephalic, head/scalp atraumatic and moist mucous membranes Eyes PERRL and EOMs intact bilaterally Neck supple Chest Wall inspection of chest normal Resp normal respiratory effort and clear to auscultation bilaterally Resp Narrative: Mildly tachypneic Auscultation: Negative for rales, rhonchi or wheezes Cardio regular rhythm and no murmurs Rate: tachycardic GI normal to inspection, nondistended, normoactive bowel sounds GI Narrative: Diffuse tenderness to deep palpation. Palpation: soft; Negative for guarding or rebound tenderness present Extremity normal to inspection General Extremety ED: Negative for edema or tenderness General Extremity: Negative for edema Neuro oriented x3, CN's II-XII intact bilaterally and no sensory deficits noted Sensorium / Orientation: alert Motor Exam: strength 5/5 throughout Psych mental status grossly normal Skin no rashes or lesions noted MDM MDM MDM Narrative Medical decision making narrative: Patient presents to the emergency department thinking that he is in diabetic ketoacidosis. He has been in this many times before in the past. States his blood sugars have been in the high 300s. On arrival to the emergency department he is mildly tachypneic, tachycardic but otherwise satting well on room air and afebrile. He does have a positive Covid exposure. Will check basic lab work, ketones, VBG. Patient be started on IV fluids will check Covid swab. Patient's lab work did come back with a pH of 7.2. His CO2 is 9. His glucose of 459. He does have elevated anion gap. He does have moderate amount of serum ketones. Patient has been started on IV fluids. We will start insulin drip at this time. Will bring into the intensive care unit for further evaluation and management. He otherwise has remained stable throughout ED stay. Lab Data Labs: Laboratory Results - last 24 hr 04/19/21 04/19/21 04/19/21 13:42 13:42 13:42 WBC 22.0 H RBC 5.88 Hgb 18.7 H* Hct 55.8 H MCV 94.9 H MCH 31.8 MCHC 33.5 RDW Std Deviation 41.8 RDW Coeff of Yaritza 12.0 Plt Count 359 MPV 10.3 Immature Gran % (Auto) 1.500 H Neut % (Auto) 81.1 H Lymph % (Auto) 13.2 L [place] % (Auto) 3.2 Eos % (Auto) 0.4 Baso % (Auto) 0.6 Absolute Neuts (auto) 17.8 H Absolute Lymphs (auto) 2.92 Nucleated RBC % 0 Sodium 129 L Potassium 5.1 Chloride 96 L Carbon Dioxide 9.0 L* Anion Gap 24 H BUN 16 Creatinine 1.18 Estim Creat Clear Calc 86.36 Est GFR (MDRD) Af Amer 94 Est GFR (MDRD) Non-Af 77 BUN/Creatinine Ratio 13.6 Glucose 459 H* Calcium 9.7 Acetone Level MODERATE H ABG Data ABG results: ABG 04/19/21 14:16 Specimen Type HARRIS VBG pH 7.20 L VBG pO2 111 H VBG HCO3 7 L VBG Total CO2 7 L VBG O2 Sat (Calc) 97 H VBG Base Excess -22 L POC Mix VBG pCO2 Pt Tmp 16.6 L* Crit Call To/Read Back Yes Radiography Diagnostic Testing: Radiology Impression Chest X-Ray 04/19/21 14:08 IMPRESSION: No active disease. Electronically Signed: Ayden Patrick MD at 14:41 EDT Tel , Service support , EKG Initial EKG: Attestation: I personally reviewed and interpreted this EKG as follows: (Rate of 107 bpm in sinus tachycardia. Normal intervals. Normal axis. No significant ST elevations or depressions. No T wave abnormalities.) Critical Care Time Critical Care Time: Yes Critical care time (excluding procedures): 30-74 minutes (30), Discussing w/Patient &/or Family/Assembly Mechanic, Discussing w/Consultants, Arranging Admission or Transfer and Performing Direct Patient Care at Bedside Discharge Plan Dx/Rx/DC Orders Clinical Impression: Diabetic ketoacidosis associated with type 1 diabetes mellitus Disposition Disposition: Acute Care Hospital [facility]
[2021-04-19 13:50] LABS: Absolute Lymphocyte Count 2.92 X10^3/uL (0.83-4.51); Absolute Neutrophil Count 17.8 X10^3/uL (2.0-7.7); Basophil# 0.14 X10^3/uL; Basophil% 0.6 % (0-1); Eosinophil# 0.09 X10^3/uL; Eosinophils% 0.4 % (0-5); Hemoglobin 18.7 g/dL (13.0-16.5); Lymphocyte # 2.92 X10^3/ul (0.83-4.51); Lymphocyte % 13.2 % (19-41); Mean Corp Hgb Conc 33.5 g/dL (32-36); Mean Corpuscular Hgb 31.8 pg (27.0-32.0); Mean Corpuscular Volume 94.9 fL (80-94); Mean Platelet Vol. 10.3 fl (6.2-12.0); Monocyte# 0.71 X10^3/uL; Monocyte% 3.2 % (0-10); NRBC Flagged by Analyzer 0 % (0-5); Neutrophil # 17.84 X10^3/uL (2.7-7.7); Neutrophil % 81.1 % (47-70); Platelet Count 359 K/mm3 (150-450); RBC Distribution Width SD 41.8 fl (35.1-43.9); Red Blood Count 5.88 M/mm3 (4.6-6.2)
[2021-04-19 13:54] LABS: Hematocrit 55.8 % (40-54)
[2021-04-19] MEDS: 0.9% Normal Saline 1,000 ML 999 ML IV ×2 (14:02→15:27)
--- NOTE | 2021-04-19 14:08 | RAD_ITS ---
STUDY: X-RAY CHEST REASON FOR EXAM: Male, 30 years old. COVID exposure, DKA TECHNIQUE: Single AP portable view of the chest. COMPARISON: 03/09/2021 FINDINGS: The lungs are clear and expanded. There is no demonstrated pleural abnormality. Normal size heart. Normal mediastinum and kamla. Normal visualized pulmonary arteries. Normal visualized aortic arch and descending thoracic aorta. Normal visualized thoracic spine. Healed fracture the left clavicle after open reduction internal fixation with a superior plate and screws. There is no demonstrated abnormality of the visualized soft tissue structures of the upper abdomen. RAD/Chest 1 View (Portable) IMPRESSION: No active disease. Electronically Signed: Ayden Patrick MD at 14:41 EDT Tel , Service support ,
[2021-04-19 14:13] LABS: Anion Gap 24 (5-15); BUN 16 mg/dL (7-18); BUN/Creat Ratio 13.6 RATIO (10-20); Calcium,Total 9.7 mg/dL (8.5-10.1); Chloride 96 mmol/L (98-107); Creatinine, Serum 1.18 mg/dL (0.70-1.30); EST Glomerular Filtration Rate 77 mL/min (>60); Est Glom Filt Rate - Afr Amer 94 mL/min (>60); Estimated Creatinine Clearance 86.36 ml/min; Glucose 459 mg/dL (74-106); Potassium 5.1 mmol/L (3.5-5.1); Sodium Level 129 mmol/L (136-145)
--- NOTE | 2021-04-19 14:20 | CPS ---
Critical venous blood results called to Aniket TREJO at [address] Rojas at 1424.
[2021-04-19 14:59] LABS: Blood Gas Specimen Type VEN; VBG BASE EXCESS -22 mmol/L (-1.0-3.5); VBG Bicarbonate 7 mmol/L (22-26); VBG PO2 111 mmHg (25-40); VBG SO2 97 % (50-70); VBG TCO2 7 mmol/L (23-33); VBG pCO2 16.6 mmHg (41-51)
--- NOTE | 2021-04-19 15:03 | PCM.HP.STD ---
[facility] - General General Date of Service: 04/19/21 Chief Complaint: Generalized aches HPI Narrative KANDICE MOONEY, is a 30 M with past medical history significant for diabetes mellitus type 1 who presents with generalized aches.. Patient symptoms started on the morning of his presentation. He did admit to being exposed to someone who had Covid. He denied fever but did experience chills. He also did complain of significant abdominal pain with nausea and vomiting. He did check his blood leukosis levels which were greater than 350 subsequently presented to the emergency department and assessment of diabetic ketoacidosis was made. His rapid antigen test obtained in the ED however came back negative. Admitted to the intensive care unit as a case of diabetic ketoacidosis [facility] Medical History Collar bone fracture DM type 1 (diabetes mellitus, type 1) Foot fracture, right Hypertension Home Medications hydrocodone-acetaminophen 1 tab PO Q4H PRN 4 Days #14 tab 01/21/21 [Rx Last Taken Unknown] gabapentin [Neurontin] 300 mg PO TID 03/09/21 [History Last Taken Unknown] acetaminophen [Tylenol] 650 mg PO Q4H PRN PRN #1 tab 03/10/21 [Rx Last Taken Unknown] insulin glargine 35 unit SUBCUT 1100,2200 30 Days #21 ml 03/10/21 [Rx Last Taken Unknown] insulin lispro 12 unit SUBCUT TIDCM 30 Days #10.8 ml 03/10/21 [Rx Last Taken Unknown] Allergy/AdvReac Type Severity Reaction Status Date / Time cefaclor [From Ceclor] Allergy Hives Verified 03/09/21 05:22 erythromycin base Allergy Rash Verified 03/09/21 05:22 [From Pediazole] promethazine [From Phenergan] Allergy PT UNSURE Verified 03/09/21 05:22 OF REACTION sulfisoxazole Allergy Rash Verified 03/09/21 05:22 [From Pediazole] Penicillins [PCN] AdvReac Rash Verified 03/09/21 05:22 Family History Father Hypertension Mother Hypertension Surgical History History of appendectomy Social History household members: significant other Smoking Status: Current every day smoker tobacco type: cigarettes alcohol intake: current alcohol intake frequency: holidays/special occasions only substance use type: does not use ROS ROS Narrative GENERAL: chills, , anorexia HEENT: denies headache, sinus congestion, RESPIRATORY: denies cough, sputum production, CARDIAC: denies chest pain, palpitations, orthopnea, GASTROINTESTINAL: abdominal pain, nausea, vomiting, GENITOURINARY: denies dysuria, urgency, frequency, EXTREMITY: denies swelling MUSCULOSKELETAL: denies current joint pain or tenderness NEUROLOGIC: denies focal numbness, weakness, tingling HEMATOLOGIC: denies easy bruising and/or hemorrhage INTEGUMENT: denies rashes PSYCHIATRIC: denies suicidal or homicidal ideation Vital Signs Vital Signs Vital Signs: 04/19/21 12:59 04/19/21 13:59 Temperature 97.1 F L Temperature Source Temporal Pulse Rate 120 H Respiratory Rate 24 H Respiratory Effort Normal Non-Labored Blood Pressure 126/40 H Blood Pressure Mean 68 Pulse Ox 100 Weight Weight: 81.647 kg Body Mass Index (BMI) 28.1 Physical Exam Narrative GENERAL: Appears ill looking HEENT: Atraumatic; EYES; Anicteric, Normal Conjunctiva NECK; supple, normal thyroid, RESPIRATORY: Diminished to auscultation CARDIOVASCULAR: Regular S1 S2,, tachycardic GI: soft, normoactive bowel sounds, : No Renal angle tenderness; EXTREMITIES: No edema, no clubbing, MUSCULOSKELETAL: no muscle waisting NEURO: Awake; no lateralizing signs. SKIN: No Rash PSYCH; Flat affect Results Lab / Micro Data Result Diagrams: 04/19/21 13:42 04/19/21 13:42 Labs: Laboratory Results - last 24 hr 04/19/21 13:42: WBC 22.0 H, RBC 5.88, Hgb 18.7 H*, Hct 55.8 H, MCV 94.9 H, MCH 31.8, MCHC 33.5, RDW Std Deviation 41.8, RDW Coeff of Yaritza 12.0, Plt Count 359, MPV 10.3, Immature Gran % (Auto) 1.500 H, Neut % (Auto) 81.1 H, Lymph % (Auto) 13.2 L, [place] % (Auto) 3.2, Eos % (Auto) 0.4, Baso % (Auto) 0.6, Absolute Neuts (auto) 17.8 H, Absolute Lymphs (auto) 2.92, Nucleated RBC % 0 04/19/21 13:42: Sodium 129 L, Potassium 5.1, Chloride 96 L, Carbon Dioxide 9.0 L*, Anion Gap 24 H, BUN 16, Creatinine 1.18, Estim Creat Clear Calc 86.36, Est GFR (MDRD) Af Amer 94, Est GFR (MDRD) Non-Af 77, BUN/Creatinine Ratio 13.6, Glucose 459 H*, Calcium 9.7 04/19/21 13:42: Acetone Level MODERATE H Micro: Microbiology 04/19/21 13:36 Mucosa - Nose SARS-CoV-2 Antigen (Rapid) - Final ABG Data ABG results: ABG 04/19/21 14:16 Specimen Type HARRIS VBG pH 7.20 L VBG pO2 111 H VBG HCO3 7 L VBG Total CO2 7 L VBG O2 Sat (Calc) 97 H VBG Base Excess -22 L POC Mix VBG pCO2 Pt Tmp 16.6 L* Crit Call To/Read Back Yes Radiology Impression Chest X-Ray 04/19/21 14:08 IMPRESSION: No active disease. Electronically Signed: Ayden Patrick MD at 14:41 EDT Tel , Service support , Assessment & Plan Assessment/Plan (1) Hyperglycemia: (2) Diabetic ketoacidosis associated with type 1 diabetes mellitus: QUALIFIERS: Diabetes mellitus complication detail: without coma Qualified Code(s): E10.10 - Type 1 diabetes mellitus with ketoacidosis without coma (3) Dehydration: PLAN: Patient is a 30-year-old gentleman presented with generalized body aches 1. Diabetic ketoacidosis ?Patient has been admitted to the intensive care unit currently being managed with aggressive IV fluid resuscitation, insulin drip, every 4 BMPs with subsequent correction of electrolyte 2. Diabetes mellitus type 1 ?Patient presented with DKA management as discussed above 3. Hypertension ?Patient has history of essential hypertension but currently not on any medication. His blood pressure was elevated in the ED with systolic greater than 170 please on hydralazine as needed for systolic blood pressure greater than 160 4. Diabetic polyneuropathy ?Patient is on gabapentin 5. Leukocytosis ?Possibly reactive patient did not have any obvious source of infection he however did complain of chills and given his recent exposure to Covid patient patient was placed in isolation was Covid PCR test was undertaken 6. Severe hydration ?As evidenced by patient's relative polycythemia patient being managed with IV fluid with subsequent monitoring of H&H ordered 7. Hyponatremia ?Secondary to pseudohyponatremia as a result of hypoglycemia do expect rapid improvement with correction of patient's hyperglycemia 8. DVT prophylaxis ?Low risk,Did encourage early ambulation 9. Tobacco dependence - Counseled on cessation, offered nicotine patch for tobacco cravings Total critical care time spent on patient evaluating patient subsequent review of chart and subsequent adjustment made in therapy as well as insulin regimen; 75 minutes Charges/Coding Procedures Hospitalists Procedures: 90352 Critial Care 1st Hr Multi Select Codes Hospitalists' Procedures Procedures: 69914 Critial Care Addl 30 Min
[2021-04-19] MEDS: Morphine 4 MG/ML Syringe IV (15:35)
[2021-04-19 15:36] LABS: Bedside Glucose 442 mg/dL (70-110)
[2021-04-19 16:40] LABS: Bedside Glucose 330 mg/dL (70-110)
--- NOTE | 2021-04-19 16:44 | ED.RN ---
SBARQ given to jeremiah who is que[place] of urine not collected yet.
[2021-04-19 16:58] LABS: Bacteria 0 SEEN /hpf (None Seen); Mucous, Urine 0 SEEN /hpf (<or=2+); Red Blood Cells-Urine 0 SEEN /hpf (0-5); Squamous Epithelial Cells - UA 0 SEEN /hpf (0-5); White Blood Cells 0 SEEN /hpf (0-5)
[2021-04-19 16:59] LABS: Color, Urine Yellow (Yellow); Glucose, Dipstick 1000 mg/dl (Normal); Leukocyte Esterase-Dipstick Negative /ul (Negative); Nitrite-Dipstick Negative (Negative); Occult Blood-Urine Negative /ul (Negative); Protein-Dipstick 15 mg/dl (Negative); Specific Gravity, Urine 1.025 (1.002-1.030); Urine Bilirubin Dipstick Negative (Negative); Urine Clarity Clear (Clear); Urine Urobilinogen Normal (Normal)
[2021-04-19 17:02] LABS: Ketone-Dipstick 150 mg/dl (Negative)
[2021-04-19 17:09] LABS: Probe Check PASS; Specimen Processing Control PASS
[2021-04-19 18:11] LABS: Bedside Glucose 344 mg/dL (70-110)
[2021-04-19] MEDS: 0.9% Normal Saline 1,000 ML 250 ML IV (18:30)
[2021-04-19] MEDS: Gabapentin 300 MG Capsule PO (18:40)
[2021-04-19] MEDS: HYDROmorphone 1 MG/ML Syringe IV (18:40)
[2021-04-19] MEDS: 0.9% Saline Lock 10 ML Syringe IV (18:40)
[2021-04-19 18:56] LABS: Bedside Glucose 312 mg/dL (70-110)
[2021-04-19 19:30] LABS: Anion Gap 15 (5-15); BUN 15 mg/dL (7-18); BUN/Creat Ratio 16.4 RATIO (10-20); Chloride 109 mmol/L (98-107); Creatinine, Serum 0.92 mg/dL (0.70-1.30); EST Glomerular Filtration Rate 103 mL/min (>60); Est Glom Filt Rate - Afr Amer 125 mL/min (>60); Estimated Creatinine Clearance 110.77 ml/min; Glucose 246 mg/dL (74-106); Potassium 4.2 mmol/L (3.5-5.1); Sodium Level 137 mmol/L (136-145)
[2021-04-19 19:41] LABS: Bedside Glucose 221 mg/dL (70-110)
[2021-04-19 20:41] LABS: Bedside Glucose 213 mg/dL (70-110)
[2021-04-19 22:55] LABS: Bedside Glucose 204 mg/dL (70-110)
[2021-04-19 23:15] LABS: Bedside Glucose 207 mg/dL (70-110)
[2021-04-19 23:47] LABS: Anion Gap 6 (5-15); BUN 14 mg/dL (7-18); BUN/Creat Ratio 14.6 RATIO (10-20); Calcium,Total 8.2 mg/dL (8.5-10.1); Chloride 111 mmol/L (98-107); Creatinine, Serum 0.96 mg/dL (0.70-1.30); EST Glomerular Filtration Rate 98 mL/min (>60); Est Glom Filt Rate - Afr Amer 118 mL/min (>60); Estimated Creatinine Clearance 106.15 ml/min; Glucose 200 mg/dL (74-106); Potassium 4.4 mmol/L (3.5-5.1); Sodium Level 137 mmol/L (136-145)
[2021-04-20] VITALS (13 sets, daily range): BP systolic 111–152; BP diastolic 72–85; PULSE 92–105; RESP 12–18; TEMP 36.5–37.1; O2SAT 99–100
--- NOTE | 2021-04-20 01:13 | NURSING ---
0030: INSULIN DRIP RATE DECREASED TO 2 UNITS/HR PER NEW ORDER RCVD FROM DR POTTER BASED ON BMP RESULTS OF K+ 4.4, CO2=20, ANION =6, GLUCOSE 200
[2021-04-20 01:50] LABS: Bedside Glucose 167 mg/dL (70-110)
--- NOTE | 2021-04-20 02:12 | NURSING ---
0145: DR POTTER UPDATED ON ACETON LEVEL RESULT=SMALL. NEW ORDER TO CONTINUE INSULIN DRIP FOR 4 HOURS THEN DC. CONTINUE D5.45 WITH 20 KCL AND DECREASE RATE TO 125 CC/HR. AND CONTINUE MONITORING BLOOD SUGARS.
[2021-04-20 04:00] LABS: Anion Gap 9 (5-15); BUN 13 mg/dL (7-18); BUN/Creat Ratio 15.4 RATIO (10-20); Calcium,Total 8.1 mg/dL (8.5-10.1); Chloride 108 mmol/L (98-107); Creatinine, Serum 0.84 mg/dL (0.70-1.30); EST Glomerular Filtration Rate 114 mL/min (>60); Est Glom Filt Rate - Afr Amer 137 mL/min (>60); Estimated Creatinine Clearance 121.31 ml/min; Glucose 190 mg/dL (74-106); Sodium Level 137 mmol/L (136-145)
[2021-04-20 04:21] LABS: Bedside Glucose 176 mg/dL (70-110)
--- NOTE | 2021-04-20 04:39 | NURSING ---
0420: dr davis updated that BGT was 176 which is up from previous sugar of 167 that requires increase of insulin drip by 1 unit per protocol. new verbal order rcvd to infuse insulin drip @ 1 unit/hr for blood sugars 150-200 and dc drip if blood sugar is less than 150
[2021-04-20 05:51] LABS: Bedside Glucose 193 mg/dL (70-110)
[2021-04-20 06:55] LABS: Bedside Glucose 249 mg/dL (70-110)
[2021-04-20] MEDS: 0.45% Normal Saline 1,000 ML 100 ML IV ×2 (07:18→17:20)
[2021-04-20 07:20] LABS: Phosphorus 2.1 mg/dL (2.5-4.9)
[2021-04-20 07:26] LABS: Absolute Lymphocyte Count 3.46 X10^3/uL (0.83-4.51); Absolute Neutrophil Count 11.2 X10^3/uL (2.0-7.7); Basophil# 0.07 X10^3/uL; Basophil% 0.4 % (0-1); Eosinophil# 0.14 X10^3/uL; Eosinophils% 0.9 % (0-5); Hematocrit 43.6 % (40-54); Hemoglobin 14.9 g/dL (13.0-16.5); Lymphocyte # 3.46 X10^3/ul (0.83-4.51); Lymphocyte % 21.6 % (19-41); Mean Corp Hgb Conc 34.2 g/dL (32-36); Mean Corpuscular Hgb 31.8 pg (27.0-32.0); Mean Platelet Vol. 11.1 fl (6.2-12.0); Monocyte# 1.01 X10^3/uL; Monocyte% 6.3 % (0-10); NRBC Flagged by Analyzer 0 % (0-5); Neutrophil # 11.24 X10^3/uL (2.7-7.7); Neutrophil % 70.4 % (47-70); POSITIVE COUNT YES; Platelet Count 143 K/mm3 (150-450); RBC Distribution Width CV 12.3 % (11.6-14.6); RBC Distribution Width SD 42.5 fl (35.1-43.9); Red Blood Count 4.69 M/mm3 (4.6-6.2)
[2021-04-20 07:27] LABS: Anion Gap 6 (5-15); BUN 13 mg/dL (7-18); BUN/Creat Ratio 15.2 RATIO (10-20); Calcium,Total 8.1 mg/dL (8.5-10.1); Chloride 111 mmol/L (98-107); Creatinine, Serum 0.86 mg/dL (0.70-1.30); EST Glomerular Filtration Rate 112 mL/min (>60); Est Glom Filt Rate - Afr Amer 135 mL/min (>60); Estimated Creatinine Clearance 118.49 ml/min; Glucose 211 mg/dL (74-106); Magnesium 1.8 mg/dL (1.6-2.6); Potassium 4.1 mmol/L (3.5-5.1); Sodium Level 137 mmol/L (136-145)
[2021-04-20 07:28] LABS: Differential Indicated SCAN CRITERIA MET
--- NOTE | 2021-04-20 07:42 | PN.HOSP_ITS ---
Subjective Subjective Follow-up on Acute DKA: Patient was seen and examined. He feels improved. He denied any new complaints. His anion gap is closed. Off insulin drip. Given Lantus 15 units this morning. Objective Data Objective Data Vital Signs: Vital Signs Temp Pulse Resp BP Pulse Ox 98.7 F 92 12 137/81 H 100 04/20/21 03:30 04/20/21 06:00 04/20/21 06:00 04/20/21 06:00 04/20/21 06:00 Oxygen Flow Rate (L/min) 2 Oxygen Delivery Method Room Air Weight: 77.9 kg Body Mass Index (BMI) 28.1 Intake & Output: Intake and Output for Last 24 Hours 04/18/21 04/19/21 04/20/21 23:59 23:59 23:59 Intake Total 2502.40 / 2502.40 2035.20 / 2035.20 Balance 2502.40 / 2502.40 2034.20 / 2034. Lab / Micro Data Result Diagrams: 04/20/21 05:40 04/20/21 05:40 Labs: Laboratory Results - last 24 hr 04/19/21 13:42: WBC 22.0 H, RBC 5.88, Hgb 18.7 H*, Hct 55.8 H, MCV 94.9 H, MCH 31.8, MCHC 33.5, RDW Std Deviation 41.8, RDW Coeff of Yaritza 12.0, Plt Count 359, MPV 10.3, Immature Gran % (Auto) 1.500 H, Neut % (Auto) 81.1 H, Lymph % (Auto) 13.2 L, [place] % (Auto) 3.2, Eos % (Auto) 0.4, Baso % (Auto) 0.6, Absolute Neuts (auto) 17.8 H, Absolute Lymphs (auto) 2.92, Nucleated RBC % 0 04/19/21 13:42: Sodium 129 L, Potassium 5.1, Chloride 96 L, Carbon Dioxide 9.0 L*, Anion Gap 24 H, BUN 16, Creatinine 1.18, Estim Creat Clear Calc 86.36, Est GFR (MDRD) Af Amer 94, Est GFR (MDRD) Non-Af 77, BUN/Creatinine Ratio 13.6, Glucose 459 H*, Calcium 9.7 04/19/21 13:42: Acetone Level MODERATE H 04/19/21 15:26: POC Glucose 442 H 04/19/21 16:05: COVID-19 (MEHUL) Negative 04/19/21 16:33: POC Glucose 330 H 04/19/21 16:53: Urine Color Yellow, Urine Clarity Clear, Urine pH 5.0, Ur Specific [place] 1.025, Urine Protein 15 H, Urine Glucose (UA) 1000 H, Urine Ketones 150 A*, Urine Occult Blood Negative, Urine Nitrite Negative, Urine Bilirubin Negative, Urine Urobilinogen Normal, Ur Leukocyte Esterase Negative, Urine RBC 0 SEEN, Urine WBC 0 SEEN, Ur Squamous Epith Cells 0 SEEN, Urine Bacteria 0 SEEN, Urine Mucus 0 SEEN 04/19/21 17:31: POC Glucose 344 H 04/19/21 18:37: POC Glucose 312 H 04/19/21 18:59: Sodium 137, Potassium 4.2, Chloride 109 H, Carbon Dioxide 13.0 L , Anion Gap 15, BUN 15, Creatinine 0.92, Estim Creat Clear Calc 110.77, Est GFR (MDRD) Af Amer 125, Est GFR (MDRD) Non-Af 103, BUN/Creatinine Ratio 16.4, Glucose 246 H, Calcium 8.0 L 04/19/21 19:30: POC Glucose 221 H 04/19/21 20:36: POC Glucose 213 H 04/19/21 21:37: POC Glucose 207 H 04/19/21 22:37: POC Glucose 204 H 04/19/21 23:10: Sodium 137, Potassium 4.4, Chloride 111 H, Carbon Dioxide 20.0 L , Anion Gap 6, BUN 14, Creatinine 0.96, Estim Creat Clear Calc 106.15, Est GFR (MDRD) Af Amer 118, Est GFR (MDRD) Non-Af 98, BUN/Creatinine Ratio 14.6, Glucose 200 H, Calcium 8.2 L 04/20/21 00:45: Acetone Level SMALL H 04/20/21 01:41: POC Glucose 167 H 04/20/21 03:00: Sodium 137, Potassium 4.0, Chloride 108 H, Carbon Dioxide 20.0 L , Anion Gap 9, BUN 13, Creatinine 0.84, Estim Creat Clear Calc 121.31, Est GFR (MDRD) Af Amer 137, Est GFR (MDRD) Non-Af 114, BUN/Creatinine Ratio 15.4, Glucose 190 H, Calcium 8.1 L 04/20/21 04:12: POC Glucose 176 H 04/20/21 05:40: Sodium 137, Potassium 4.1, Chloride 111 H, Carbon Dioxide 20.0 L , Anion Gap 6, BUN 13, Creatinine 0.86, Estim Creat Clear Calc 118.49, Est GFR (MDRD) Af Amer 135, Est GFR (MDRD) Non-Af 112, BUN/Creatinine Ratio 15.2, Glucose 211 H, Calcium 8.1 L, Magnesium 1.8 04/20/21 05:40: WBC 16.0 H, RBC 4.69, Hgb 14.9, Hct 43.6, MCV 93.0, MCH 31.8, MCHC 34.2, RDW Std Deviation 42.5, RDW Coeff of Yaritza 12.3, Plt Count 143 L, MPV 11.1, Immature Gran % (Auto) 0.400, Neut % (Auto) 70.4 H, Lymph % (Auto) 21.6, [place] % (Auto) 6.3, Eos % (Auto) 0.9, Baso % (Auto) 0.4, Absolute Neuts (auto) 11.2 H, Absolute Lymphs (auto) 3.46, Nucleated RBC % 0 04/20/21 05:40: Phosphorus 2.1 L 04/20/21 05:46: POC Glucose 193 H 04/20/21 06:47: POC Glucose 249 H Micro: Microbiology 04/19/21 13:36 Mucosa - Nose SARS-CoV-2 Antigen (Rapid) - Final ABG Data ABG results: ABG 04/19/21 14:16 Specimen Type HARRIS VBG pH 7.20 L VBG pO2 111 H VBG HCO3 7 L VBG Total CO2 7 L VBG O2 Sat (Calc) 97 H VBG Base Excess -22 L POC Mix VBG pCO2 Pt Tmp 16.6 L* Crit Call To/Read Back Yes Radiography Diagnostic Testing: Radiology Impression Chest X-Ray 04/19/21 14:08 IMPRESSION: No active disease. Electronically Signed: Ayden Patrick MD at 14:41 EDT Tel , Service support , Physical Exam Narrative GENERAL: Alert oriented x3, moderately dehydrated, dry lips and tongue HEENT: Atraumatic; EYES; Anicteric, Normal Conjunctiva NECK; supple, normal thyroid, RESPIRATORY: CTA CARDIOVASCULAR: Regular S1 S2,, tachycardic GI: soft, normoactive bowel sounds, EXTREMITIES: No edema Assessment & Plan Assessment/Plan (1) Hyperglycemia: (2) Diabetic ketoacidosis associated with type 1 diabetes mellitus: QUALIFIERS: Diabetes mellitus complication detail: without coma Qualified Code(s): E10.10 - Type 1 diabetes mellitus with ketoacidosis without coma (3) Dehydration: (4) Leucocytosis: (5) Hyponatremia: (6) Hypomagnesemia: (7) Hypophosphatemia: PLAN: 1. Acute DKA, in a type I diabetic complicated by diabetic polyneuropathy, resolved Unclear etiology for current acute DKA; acute febrile illness suspected. Acute COVID-19 rapid as well as PCR was negative No more fevers in the hospital Started on Lantus -given 15 units x 1 today, will add 20 units x 1 and then continue on home dose 35 units twice daily as well as premeal insulin and insulin sliding scale, will monitor blood sugars before meals and at bedtime 2. Elevated blood pressure, history of hypertension, not on medication Blood pressures within normal range, continue to monitor 3. Leukocytosis, reactive secondary to #1, resolving 4. Pseudohyponatremia, resolved, sodium is 137 5. Nicotine dependence, on replacement 6. DVT prophylaxis - low risk; early ambulation Charges/Coding Visit Charges Inpatient E&M: 29613 Subs Hosp L2
[2021-04-20 08:04] LABS: Platelet Estimate ADEQUATE (ADEQ); Platelet Morphology CLUMPED
[2021-04-20] MEDS: Gabapentin 300 MG Capsule PO ×3 (08:20→16:51)
[2021-04-20] MEDS: Na Biphos/Potassium Phosphate PACKET 1 PACKET PO ×4 (08:20→20:20)
[2021-04-20] MEDS: oxyCODONE 5 MG Tablet PO ×2 (09:04→20:30)
[2021-04-20 12:16] LABS: Bedside Glucose > 500 mg/dL (70-110)
--- NOTE | 2021-04-20 12:30 | CASEMGMT ---
RN PEARL Face to Face with patient for initial transition planning/care coordination assessment. RN CM introduced self and role at [facility]. Patient lying in bed, alert and oriented. Patient willing to participate in assessment and is able to answer all questions appropriately. Care providers, pharmacy, and demographics verified. Patient wishes to discharge home, denies need for home health at this time. Patient states he has no further needs or concerns at this time. CM to follow for discharge planning needs that may arise. PCP: Sandy BODY TECHNICIAN at [facility] Specialists: none Preferred Pharmacy: [facility] Insurance: debra Teresa Prescription Benefit: yes Living Will/HPOA: none LNOK: mother, girlfriend Living Arrangements: Patient lives with girlfriend in a single story home with 3 steps and railing to enter the home. Patient states he is independent at home. Transportation: self, girlfriend DME/HHC: Patient states he has glucometer and testing supplies at home. Patient states he is running low on insulin and has not refilled insulin since last time he was admitted in January. Per notes patient had refills at [facility]. CM will call [facility] to inquire if patient has refills and will schedule follow-up appt with [facility] per patient request. Disposition Plan: Patient to discharge home with family support and follow-up plans in place. Tanya GERARDO, RN, CM
[2021-04-20] MEDS: HYDROmorphone 1 MG/ML Syringe IV ×2 (12:38→16:56)
[2021-04-20] MEDS: Insulin Lispro 100 UNIT/ML INSULN.PEN 15 UNIT SC ×2 (12:38→16:50)
[2021-04-20] MEDS: Insulin Lispro 100 UNIT/ML INSULN.PEN SC ×3 (12:39→20:21)
[2021-04-20 15:41] LABS: Pathologist Review Reviewed
[2021-04-20 16:41] LABS: Bedside Glucose 329 mg/dL (70-110)
[2021-04-20 21:05] LABS: Bedside Glucose 272 mg/dL (70-110)
[2021-04-21] MEDS: oxyCODONE 5 MG Tablet PO ×2 (02:07→08:59)
[2021-04-21] MEDS: 0.45% Normal Saline 1,000 ML 100 ML IV (02:07)
[2021-04-21 02:10] VITALS: BP 123/87; PULSE 78; RESP 18; TEMP 36.9; O2SAT 98
[2021-04-21 03:07] VITALS: PULSE 79
[2021-04-21 03:38] LABS: Absolute Lymphocyte Count 3.35 X10^3/uL (0.83-4.51); Absolute Neutrophil Count 3.2 X10^3/uL (2.0-7.7); Basophil# 0.05 X10^3/uL; Basophil% 0.7 % (0-1); Eosinophil# 0.19 X10^3/uL; Eosinophils% 2.6 % (0-5); Hematocrit 42.5 % (40-54); Hemoglobin 14.4 g/dL (13.0-16.5); Lymphocyte # 3.35 X10^3/ul (0.83-4.51); Lymphocyte % 46.3 % (19-41); Mean Corp Hgb Conc 33.9 g/dL (32-36); Mean Corpuscular Hgb 31.6 pg (27.0-32.0); Mean Corpuscular Volume 93.4 fL (80-94); Mean Platelet Vol. 10.1 fl (6.2-12.0); Monocyte# 0.46 X10^3/uL; Monocyte% 6.4 % (0-10); NRBC Flagged by Analyzer 0 % (0-5); Neutrophil # 3.16 X10^3/uL (2.7-7.7); Neutrophil % 43.6 % (47-70); Platelet Count 222 K/mm3 (150-450); RBC Distribution Width CV 12.2 % (11.6-14.6); RBC Distribution Width SD 42.3 fl (35.1-43.9); Red Blood Count 4.55 M/mm3 (4.6-6.2); White Blood Count 7.2 K/mm3 (4.4-11.0)
[2021-04-21 03:49] LABS: Albumin, Serum 2.8 g/dL (3.2-5.0); BUN 12 mg/dL (7-18); BUN/Creat Ratio 19.5 RATIO (10-20); Calcium,Total 7.9 mg/dL (8.5-10.1); Chloride 104 mmol/L (98-107); Creatinine, Serum 0.62 mg/dL (0.70-1.30); EST Glomerular Filtration Rate 164 mL/min (>60); Est Glom Filt Rate - Afr Amer 198 mL/min (>60); Estimated Creatinine Clearance 164.36 ml/min; Glucose 284 mg/dL (74-106); Magnesium 1.6 mg/dL (1.6-2.6); Phosphorus 2.5 mg/dL (2.5-4.9); Potassium 3.7 mmol/L (3.5-5.1); Sodium Level 136 mmol/L (136-145)
[2021-04-21 07:12] VITALS: PULSE 67
--- NOTE | 2021-04-21 07:29 | PCM.DC ---
Discharge Instructions Diet Discharge Diet: 1800 Calorie Control Diet Activity Discharge Activity: Return to Normal Activity Follow Up Care Test Results: Test results from this visit will be discussed in further detail at your follow-up appointment, if applicable. Discharge Plan Admission Admit Date/Time: 04/19/21 14:54 Primary Reason for Your Visit: Acute DKA Attending Provider: Bernie Bustos Primary Care Provider: Fina Reyes Primary Instructions Additional Instructions / Restrictions: Continue to take all your insulins as prescribed. Keep yourself hydrated. Follow-up with your primary care doctor within 1 to 2 weeks. You will be referred to pain managment. Discharge Orders/Prescriptions Prescriptions: New gabapentin 300 mg Capsule 300 mg PO TIDCM Qty: 90 RF: 0 Continued acetaminophen [Tylenol] 325 mg Tablet 650 mg PO Q4H PRN PRN (Reason: Pain Score 1-10) Qty: 1 RF: 0 insulin glargine 100 UNITS/ML insulin pen 35 unit subcut 1100,2200 30 Days Qty: 21 RF: 1 Changed insulin lispro 100 UNIT/ML cartridge 15 unit subcut TIDCM 30 Days Qty: 10.8 RF: 1 Referrals / Follow Up: Care Physician,No Primary [Primary Care Provider] - Within 2 Weeks Disposition Disposition (needs filled in before D/C Order can be placed): Home, Self Care
--- NOTE | 2021-04-21 07:30 | PCM.DC.SUM ---
Providers Date of Admission: 04/19/21 Date of Discharge: 04/21/21 Primary Care Physician: No Primary Care Phys Reason For Visit: DKA Diagnosis Discharge Diagnosis (1) Hyperglycemia: Status: Acute Code(s): R73.9 - Hyperglycemia, unspecified (2) Diabetic ketoacidosis associated with type 1 diabetes mellitus: Status: Resolved Code(s): E10.10 - Type 1 diabetes mellitus with ketoacidosis without coma Qualifiers: Diabetes mellitus complication detail: without coma Qualified Code(s): E10.10 - Type 1 diabetes mellitus with ketoacidosis without coma (3) Dehydration: Status: Resolved Code(s): E86.0 - Dehydration (4) Leucocytosis: Status: Resolved Code(s): D72.829 - Elevated white blood cell count, unspecified (5) Hyponatremia: Status: Resolved Code(s): E87.1 - Hypo-osmolality and hyponatremia (6) Hypomagnesemia: Status: Resolved Code(s): E83.42 - Hypomagnesemia (7) Hypophosphatemia: Status: Resolved Code(s): E83.39 - Other disorders of phosphorus metabolism Medications at Discharge Home Medications acetaminophen [Tylenol] 650 mg PO Q4H PRN PRN #1 tab 03/10/21 insulin glargine 35 unit SUBCUT 1100,2200 30 Days #21 ml 03/10/21 gabapentin 300 mg PO TIDCM #90 cap 04/21/21 insulin lispro 15 unit SUBCUT TIDCM 30 Days #10.8 ml 04/21/21 magnesium 250 mg PO DAILY 7 Days #7 tab 04/21/21 Hospital Course Operations None Procedures None Summary of Care Provided Minutes Spent on Discharge: 45 Hospital Course: 30-year-old male with past medical history of type I DM who presented with generalized weakness and aches. Patient stated that he had been exposed to somebody with Covid. He denied any fever but admitted to chills. He has some nausea and vomiting, no loss of smell or taste. His rapid antigen and COVID-19 PCR was negative. Patient was found to be in DKA. He was admitted to ICU and managed on insulin drip. His gap was closed the next day. He was transitioned to his home Lantus 35 units twice daily and premeal insulin 15 units 3 times daily. Patient continued to do well. He had electrolyte imbalances that were replaced. He had complaints of pain from carpal tunnel in his hands. He was referred to pain management. Physical Exam Narrative GENERAL: Alert oriented x3, not pale, well hydrated HEENT: Atraumatic; EYES; Anicteric, Normal Conjunctiva NECK; supple, normal thyroid, RESPIRATORY: CTA CARDIOVASCULAR: Regular S1 S2,, tachycardic GI: soft, normoactive bowel sounds, EXTREMITIES: No edema Weight / BMI Weight Weight: 80 kg Body Mass Index (BMI) 28.1 ABG / Lab / Microbiology Data Result Diagrams: 04/21/21 03:20 04/21/21 03:20 Laboratory: Laboratory Results - last 24 hr 04/19/21 13:42: Diff Path Review Reviewed 04/20/21 05:40: Platelet Estimate ADEQUATE, Plt Morphology Comment CLUMPED 04/20/21 12:07: POC Glucose > 500 H* 04/20/21 16:30: POC Glucose 329 H 04/20/21 20:17: POC Glucose 272 H 04/21/21 03:20: WBC 7.2, RBC 4.55 L, Hgb 14.4, Hct 42.5, MCV 93.4, MCH 31.6, MCHC 33.9, RDW Std Deviation 42.3, RDW Coeff of Yaritza 12.2, Plt Count 222, MPV 10.1, Immature Gran % (Auto) 0.400, Neut % (Auto) 43.6 L, Lymph % (Auto) 46.3 H, Metcalfe % (Auto) 6.4, Eos % (Auto) 2.6, Baso % (Auto) 0.7, Absolute Neuts (auto) 3.2, Absolute Lymphs (auto) 3.35, Nucleated RBC % 0 04/21/21 03:20: Sodium 136, Potassium 3.7, Chloride 104, Carbon Dioxide 27.0, BUN 12, Creatinine 0.62 L, Estim Creat Clear Calc 164.36, Est GFR (MDRD) Af Amer 198, Est GFR (MDRD) Non-Af 164, BUN/Creatinine Ratio 19.5, Glucose 284 H, Calcium 7.9 L, Phosphorus 2.5, Magnesium 1.6, Albumin 2.8 L Microbiology: Microbiology 04/19/21 13:36 Mucosa - Nose SARS-CoV-2 Antigen (Rapid) - Final D/C Instructions Discharge Diet: 1800 Calorie Control Diet Meaningful Use Info Meaningful Use Diagnoses (Choose all that apply): None applicable Discharge Plan Admission Admit Date/Time: 04/19/21 14:54 Primary Reason for Your Visit: Acute DKA Attending Provider: Bernie Bustos Primary Care Provider: [facility] Providers: Nakul Osman Instructions Additional Instructions / Restrictions: Continue to take all your insulins as prescribed. Keep yourself hydrated. Follow-up with your primary care doctor within 1 to 2 weeks. You will be referred to pain managment. Discharge Orders/Prescriptions Prescriptions: New gabapentin 300 mg Capsule 300 mg PO TIDCM Qty: 90 RF: 0 magnesium 250 mg tablet 250 mg PO DAILY 7 Days Qty: 7 RF: 0 Continued acetaminophen [Tylenol] 325 mg Tablet 650 mg PO Q4H PRN PRN (Reason: Pain Score 1-10) Qty: 1 RF: 0 insulin glargine 100 UNITS/ML insulin pen 35 unit subcut 1100,2200 30 Days Qty: 21 RF: 1 Changed insulin lispro 100 UNIT/ML cartridge 15 unit subcut TIDCM 30 Days Qty: 10.8 RF: 1 Referrals / Follow Up: Nakul Osman MD [STAFF PHYSICIAN] - 04/22/21 10:30 am Care Physician,Fina Primary [NON-STAFF] - 04/30/21 8:30 am ([facility]) Disposition Disposition (needs filled in before D/C Order can be placed): Home, Self Care Charges/Coding Visit Charges Inpatient E&M: 58832 Disch Hosp
[2021-04-21] MEDS: Insulin Lispro 100 UNIT/ML INSULN.PEN 15 UNIT SC (07:50)
[2021-04-21] MEDS: Insulin Lispro 100 UNIT/ML INSULN.PEN SC (07:51)
[2021-04-21 08:00] VITALS: BP 127/77; PULSE 73; RESP 16; TEMP 35.8; O2SAT 99
[2021-04-21] MEDS: Gabapentin 300 MG Capsule PO (08:01)
[2021-04-21] MEDS: Na Biphos/Potassium Phosphate PACKET 1 PACKET PO (08:48)
[2021-04-21] MEDS: Acetaminophen 325 MG Tablet 650 MG PO (09:00)
--- NOTE | 2021-04-21 11:33 | NURSING ---
Pt being discharged. Pt states he will check his BG at home and take all scheduled insulins.
[2021-04-21 16:55] LABS: Bedside Glucose 295 mg/dL (70-110)
== END 2021-04-21 11:45 | disposition home or self-care (01) | DRG 639 ==
LOC: ED 15:02 → ICU 15:30
PROVIDERS: Internal Medicine; Admitting Provider Internal Medicine; Emergency Provider Emergency Medicine; Visit Provider Internal Medicine
DX: E10.10 Type 1 diabetes mellitus with ketoacidosis without coma (principal); E10.42 Type 1 diabetes mellitus with diabetic polyneuropathy; I10 Essential (primary) hypertension; F17.210 Nicotine dependence, cigarettes, uncomplicated; Z20.822 Contact with and (suspected) exposure to COVID-19; Z79.4 Long term (current) use of insulin; Z79.899 Other long term (current) drug therapy
CPT/HCPCS: 71045; 80048; 80069; 81001; 82009; 82803; 82962; 83735; 84100; 85025; 87426; 87635; 93005; 97802; 97803; 99251; 99285; J7030; U0005; A4216; G0463; U0003

== ENCOUNTER → 2022-06-30 | Outpatient (CLI) | payer MEDICAID, SELFPAY ==
[2022-06-30 13:12] LABS: Microalbumin,Random Urine 14.5 mg/L (NO RANGE EST.); Microalbumin:Creatinine Ratio 15.3 mg/g CRE (<30 mg/g CRE)
[2022-06-30 13:16] LABS: ALB/GLOB Ratio 0.9 RATIO (0.9-2.4); AST(SGOT) 26 U/L (15-37); Alanine Aminotransfer ALT/SGPT 36 U/L (16-61); Alkaline Phosphatase 90 U/L (45-117); Anion Gap 6 (5-15); BUN 18 mg/dL (7-18); BUN/Creat Ratio 16.8 RATIO (10-20); Calcium,Total 8.3 mg/dL (8.5-10.1); Chloride 101 mmol/L (98-107); Cholesterol 120 mg/dL (200); Creatinine, Serum 1.07 mg/dL (0.70-1.30); EST Glomerular Filtration Rate 86 mL/min (>60); Est Glom Filt Rate - Afr Amer 104 mL/min (>60); Globulin 3.2 g/dL (2.2-4.2); Glucose 334 mg/dL (74-106); High Density Lipoprotein 34 mg/dL; Potassium 3.9 mmol/L (3.5-5.1); Protein, Total 6.2 g/dL (6.4-8.2); Sodium Level 136 mmol/L (136-145); Thyroid Stim Hormone (TSH) 1.67 uIU/mL (0.358-3.74); Triglycerides 191 mg/dL; Very Low Density Lipoprotein 38 mg/dL (5-40)
== END | disposition home or self-care (01) ==
PROVIDERS: PCP Family Medicine; Visit Provider Nurse Practitioner Family
DX: E10.9 Type 1 diabetes mellitus without complications (principal)
CPT/HCPCS: 36415; 80053; 80061; 82009; 82043; 82306; 82570; 84443